=== PATIENT | female | born 1950 | race African-American/Black ===

== ENCOUNTER 2020-04-28 09:43 | Inpatient (IN) | payer OTHER ==
[~2020-04-28] VITALS: Ht 172.7 cm; Wt 99.0 kg
[2020-04-28] MEDS ORDERED: ACETAMINOPHEN 650 MG SUPP.RECT. ONE (10:15)
[2020-04-28] MEDS ORDERED: IV NORMAL SALINE 1000ML BAG 1,000 ML IV ONE ×2 (10:30→19:00)
[2020-04-28] MEDS ORDERED: CEFEPIME HCL IV Push 2 GM VIAL. IVP ONE (10:30)
[2020-04-28 10:58] LABS: CALCIUM 10.4 mg/dL (8.5-10.1); CREATININE 1.8 mg/dL (0.6-1.0); GFR 33.7; POTASSIUM 4.3 mmol/L (3.5-5.1)
[2020-04-28] MEDS ORDERED: ACETAMINOPHEN 650 MG SUPP.RECT. PR ONE (11:00)
[2020-04-28 11:01] LABS: BILIRUBIN,URINE SMALL (NEG); CLARITY,URINE TURBID; COLOR,URINE AMBER; NITRITE,URINE NEGATIVE (NEG); PROTEIN,URINE 100 mg/dL (NEG-TRACE)
[2020-04-28 11:04] LABS: BASO % 0 % (0-3); EOS % 1 % (0-3); HEMATOCRIT 29.3 % (36.0-47.0); LYMPH # 1.2 x10^3/uL (1.0-4.8); LYMPH % 16 % (24-48); MEAN CORPUSCULAR HEMOGLOBIN 30 pg (25-35); MEAN CORPUSCULAR HGB CONC 34 g/dL (31-37); MEAN CORPUSCULAR VOLUME 88 fL (79-100); MONO # 0.5 x10^3/uL (0.0-1.1); MONO % 7 % (0-9); NEUT # 5.8 x10^3/uL (1.8-7.7); NEUT % 77 % (31-73); PLATELET COUNT 302 x10^3/uL (140-400); RED BLOOD COUNT 3.33 x10^6/uL (3.50-5.40); RED CELL DISTRIBUTION WIDTH 13.8 % (11.5-14.5); WHITE BLOOD COUNT 7.6 x10^3/uL (4.0-11.0)
[2020-04-28 11:05] LABS: ALBUMIN 2.9 g/dL (3.4-5.0); ALBUMIN/GLOBULIN RATIO 0.5 (1.0-1.7); MAGNESIUM 1.5 mg/dL (1.8-2.4); TOTAL BILIRUBIN 0.4 mg/dL (0.2-1.0); TOTAL PROTEIN 8.7 g/dL (6.4-8.2)
[2020-04-28 11:06] LABS: BASE EXCESS ABG -7 mmol/L (-3-3); HCO3 ABG 18 mmol/L (21-28); PCO2 ABG 34 mmHg (35-46); PO2 ABG 79 mmHg (65-108); SAT O2 ABG 94 % (92-99)
[2020-04-28 11:14] LABS: BARBITURATES NEG (NEG); BENZODIAZEPINES NEG (NEG); CANNABINOIDS NEG (NEG); COCAINE NEG (NEG); METHADONE NEG (NEG); OPIATES NEG (NEG); PHENCYCLIDINE NEG (NEG)
[2020-04-28 11:17] LABS: AMPHETAMINE/METHAMPHETAMINE NEG (NEG)
[2020-04-28 11:18] LABS: BACTERIA,URINE MODERATE /HPF (0-FEW); RBC,URINE 0 /HPF (0-2); WBC,URINE TNTC /HPF (0-4)
--- NOTE | 2020-04-28 11:50 | RAD ---
EXAM: CHEST ONE VIEW. HISTORY: Hypoxia. COMPARISON: None. FINDINGS: A frontal view of the chest is obtained. The inspiration is small. Mild airspace opacities are suspected in the right perihilar region and left base. There is no pneumothorax or pleural effusion. The heart is not enlarged. The aorta is calcified and tortuous. IMPRESSION: 1. Small inspiration. Correlate with other data to differentiate mild multifocal pneumonic infiltrates from atelectasis. Electronically signed by: Jose Rabago MD (04/28/2020 11:47 AM) [id number]
--- NOTE | 2020-04-28 12:03 | PDOC1 ---
History and Physical Date of Admission Date of Admission DATE: 04/28/20 TIME: 12:02 Identification/Chief Complaint Chief Complaint Altered mental status Source Source: Caregiver, Chart review History of Present Illness History of Present Illness Ms Vu is a 69yo F SNF resident w/ PMHx CVA with contractures, DM2, HLD, Anemia, CAD, Gout who presents to ED via [facility] from SNF for worsening mental status since 04/25/2020. She has been nonverbal since then, per report via EMS she normally is verbal, she was also notably hypoxic down to 84%. She improved on 4L NCO2 and ABG PO2 on 4L NCO2 was 79. She was febrile to 101.1 F as well. She was recently diagnosed with COVID19 and was doing well until 04/25/2020. Labs significant for NA 147, BUN 22, CR 1.8, albumin 2.9, magnesium 1.5, UA positive leukocyte esterase and bacteria. CT head negative for acute intracranial abnormality, CXR concerning for bilateral interstitial infiltrates. EKG: Normal sinus rhythm rate of [address]-T changes Admitted for further treatment. Past Medical History Cardiovascular: HTN, Hyperlipidemia CENTRAL NERVOUS SYSTEM: CVA Rheumatologic: Gout Endocrine: Diabetes Past Surgical History Past Surgical History: No pertinent history (Unknown) Family History Family History: Family History Unknown (Attempted review) Social History Smoke: No ALCOHOL: none Drugs: None Current Medications Current Medications Current Medications Acetaminophen (Tylenol Supp) 650 mg STK-MED ONCE .ROUTE ; Start 04/28/20 at 10:15; Stop 04/28/20 at 10:15; Status DC Sodium Chloride 1,000 ml @ 1,000 mls/hr 1X ONCE IV Last administered on 04/28/20at 10:48; Start 04/28/20 at 10:30; Stop 04/28/20 at 11:29; Status DC Cefepime HCl (Maxipime) 2 gm 1X ONCE IVP Last administered on 04/28/20at 10:47; Start 04/28/20 at 10:30; Stop 04/28/20 at 10:31; Status DC Acetaminophen (Tylenol Supp) 650 mg 1X ONCE W[place] Last administered on 04/28/20at 10:51; Start 04/28/20 at 11:00; Stop 04/28/20 at 11:01; Status DC Allergies Allergies: Coded Allergies: No Known Drug Allergies (Unverified , 04/28/20) ROS Review of System Unable to obtain due to patient not verbally responding Physical Exam General: Alert, Cooperative, mild distress HEENT: Atraumatic, PERRLA, EOMI, Mucous membr. moist/pink Lungs: Other (Bilateral crackles) Heart: S1S2, RRR, no thrills, no rubs Abdomen: Normal bowel sounds, Soft, No tenderness, No hepatosplenomegaly, No masses Rectal Exam: not examined Extremities: No clubbing, No cyanosis, No edema, Normal pulses, No te nderness/swelling Skin: No rashes, No breakdown, No significant lesion Neuro: Cranial nerves 3-12 NL, Reflexes 2+ Psych/Mental Status: Other (Non-verbal) Vitals Vitals Vital Signs Date Time Temp Pulse Resp B/P (MAP) Pulse Ox O2 Delivery O2 Flow Rate FiO2 04/28/20 10:15 101.1 79 20 117/63 (81) 89 Room Air 101.1 Labs Labs Laboratory Tests Test 04/28/20 10:00 04/28/20 10:34 04/28/20 11:00 04/28/20 11:20 White Blood Count 7.6 x10^3/uL (4.0-11.0) Red Blood Count 3.33 x10^6/uL (3.50-5.40) Hemoglobin 10.0 g/dL (12.0-15.5) Hematocrit 29.3 % (36.0-47.0) Mean Corpuscular Volume 88 fL (79-100) Mean Corpuscular Hemoglobin 30 pg (25-35) Mean Corpuscular Hemoglobin Concent 34 g/dL (31-37) Red Cell Distribution Width 13.8 % (11.5-14.5) Platelet Count 302 x10^3/uL (140-400) Neutrophils (%) (Auto) 77 % (31-73) Lymphocytes (%) (Auto) 16 % (24-48) Monocytes (%) (Auto) 7 % (0-9) Eosinophils (%) (Auto) 1 % (0-3) Basophils (%) (Auto) 0 % (0-3) Neutrophils # (Auto) 5.8 x10^3/uL (1.8-7.7) Lymphocytes # (Auto) 1.2 x10^3/uL (1.0-4.8) Monocytes # (Auto) 0.5 x10^3/uL (0.0-1.1) Eosinophils # (Auto) 0.0 x10^3/uL (0.0-0.7) Basophils # (Auto) 0.0 x10^3/uL (0.0-0.2) Sodium Level 147 mmol/L (136-145) Potassium Level 4.3 mmol/L (3.5-5.1) Chloride Level 110 mmol/L (98-107) Carbon Dioxide Level 23 mmol/L (21-32) Anion Gap 14 (6-14) Blood Urea Nitrogen 42 mg/dL (7-20) Creatinine 1.8 mg/dL (0.6-1.0) Estimated GFR (Cockcroft-Gault) 33.7 BUN/Creatinine Ratio 23 (6-20) Glucose Level 162 mg/dL (70-99) Lactic Acid Level 1.2 mmol/L (0.4-2.0) Calcium Level 10.4 mg/dL (8.5-10.1) Magnesium Level 1.5 mg/dL (1.8-2.4) Total Bilirubin 0.4 mg/dL (0.2-1.0) Aspartate Amino Transf (AST/SGOT) 30 U/L (15-37) Alanine Aminotransferase (ALT/SGPT) 25 U/L (14-59) Alkaline Phosphatase 48 U/L (46-116) Creatine Kinase 98 U/L (26-192) Troponin I Quantitative < 0.017 ng/mL (0.000-0.055) Total Protein 8.7 g/dL (6.4-8.2) Albumin 2.9 g/dL (3.4-5.0) Albumin/Globulin Ratio 0.5 (1.0-1.7) Lipase 73 U/L (73-393) Procalcitonin < 0.10 ng/mL (0.00-0.10) Thyroid Stimulating Hormone (TSH) 1.420 uIU/mL (0.358-3.74) Urine Collection Type Unknown Urine Color Madeleine Urine Clarity Turbid Urine pH 6.0 (<5.0-8.0) Urine Specific [place] 1.025 (1.000-1.030) Urine Protein 100 mg/dL (NEG-TRACE) Urine Glucose (UA) Negative mg/dL (NEG) Urine Ketones (Stick) Trace mg/dL (NEG) Urine Blood Negative (NEG) Urine Nitrite Negative (NEG) Urine Bilirubin Small (NEG) Urine Urobilinogen Dipstick 1.0 mg/dL (0.2 mg/dL) Urine Leukocyte Esterase Large (NEG) Urine RBC 0 /HPF (0-2) Urine WBC Tntc /HPF (0-4) Urine Squamous Epithelial Cells None /LPF Urine Bacteria Moderate /HPF (0-FEW) Urine Opiates Screen Neg (NEG) Urine Methadone Screen Neg (NEG) Urine Barbiturates Neg (NEG) Urine Phencyclidine Screen Neg (NEG) Urine Amphetamine/Methamphetamine Neg (NEG) Urine Benzodiazepines Screen Neg (NEG) Urine Cocaine Screen Neg (NEG) Urine Cannabinoids Screen Neg (NEG) Urine Ethyl Alcohol Neg (NEG) O2 Saturation 94 % (92-99) Arterial Blood pH 7.35 (7.35-7.45) Arterial Blood pCO2 at Patient Temp 34 mmHg (35-46) Arterial Blood pO2 at Patient Temp 79 mmHg (65-108) Arterial Blood HCO3 18 mmol/L (21-28) Arterial Blood Base Excess -7 mmol/L (-3-3) FiO2 4 lpm nc Ammonia < 10 mcmol/L (11-34) Laboratory Tests Test 04/28/20 10:00 04/28/20 10:34 04/28/20 11:00 04/28/20 11:20 White Blood Count 7.6 x10^3/uL (4.0-11.0) Red Blood Count 3.33 x10^6/uL (3.50-5.40) Hemoglobin 10.0 g/dL (12.0-15.5) Hematocrit 29.3 % (36.0-47.0) Mean Corpuscular Volume 88 fL (79-100) Mean Corpuscular Hemoglobin 30 pg (25-35) Mean Corpuscular Hemoglobin Concent 34 g/dL (31-37) Red Cell Distribution Width 13.8 % (11.5-14.5) Platelet Count 302 x10^3/uL (140-400) Neutrophils (%) (Auto) 77 % (31-73) Lymphocytes (%) (Auto) 16 % (24-48) Monocytes (%) (Auto) 7 % (0-9) Eosinophils (%) (Auto) 1 % (0-3) Basophils (%) (Auto) 0 % (0-3) Neutrophils # (Auto) 5.8 x10^3/uL (1.8-7.7) Lymphocytes # (Auto) 1.2 x10^3/uL (1.0-4.8) Monocytes # (Auto) 0.5 x10^3/uL (0.0-1.1) Eosinophils # (Auto) 0.0 x10^3/uL (0.0-0.7) Basophils # (Auto) 0.0 x10^3/uL (0.0-0.2) Sodium Level 147 mmol/L (136-145) Potassium Level 4.3 mmol/L (3.5-5.1) Chloride Level 110 mmol/L (98-107) Carbon Dioxide Level 23 mmol/L (21-32) Anion Gap 14 (6-14) Blood Urea Nitrogen 42 mg/dL (7-20) Creatinine 1.8 mg/dL (0.6-1.0) Estimated GFR (Cockcroft-Gault) 33.7 BUN/Creatinine Ratio 23 (6-20) Glucose Level 162 mg/dL (70-99) Lactic Acid Level 1.2 mmol/L (0.4-2.0) Calcium Level 10.4 mg/dL (8.5-10.1) Magnesium Level 1.5 mg/dL (1.8-2.4) Total Bilirubin 0.4 mg/dL (0.2-1.0) Aspartate Amino Transf (AST/SGOT) 30 U/L (15-37) Alanine Aminotransferase (ALT/SGPT) 25 U/L (14-59) Alkaline Phosphatase 48 U/L (46-116) Creatine Kinase 98 U/L (26-192) Troponin I Quantitative < 0.017 ng/mL (0.000-0.055) Total Protein 8.7 g/dL (6.4-8.2) Albumin 2.9 g/dL (3.4-5.0) Albumin/Globulin Ratio 0.5 (1.0-1.7) Lipase 73 U/L (73-393) Procalcitonin < 0.10 ng/mL (0.00-0.10) Thyroid Stimulating Hormone (TSH) 1.420 uIU/mL (0.358-3.74) Urine Collection Type Unknown Urine Color Madeleine Urine Clarity Turbid Urine pH 6.0 (<5.0-8.0) Urine Specific [place] 1.025 (1.000-1.030) Urine Protein 100 mg/dL (NEG-TRACE) Urine Glucose (UA) Negative mg/dL (NEG) Urine Ketones (Stick) Trace mg/dL (NEG) Urine Blood Negative (NEG) Urine Nitrite Negative (NEG) Urine Bilirubin Small (NEG) Urine Urobilinogen Dipstick 1.0 mg/dL (0.2 mg/dL) Urine Leukocyte Esterase Large (NEG) Urine RBC 0 /HPF (0-2) Urine WBC Tntc /HPF (0-4) Urine Squamous Epithelial Cells None /LPF Urine Bacteria Moderate /HPF (0-FEW) Urine Opiates Screen Neg (NEG) Urine Methadone Screen Neg (NEG) Urine Barbiturates Neg (NEG) Urine Phencyclidine Screen Neg (NEG) Urine Amphetamine/Methamphetamine Neg (NEG) Urine Benzodiazepines Screen Neg (NEG) Urine Cocaine Screen Neg (NEG) Urine Cannabinoids Screen Neg (NEG) Urine Ethyl Alcohol Neg (NEG) O2 Saturation 94 % (92-99) Arterial Blood pH 7.35 (7.35-7.45) Arterial Blood pCO2 at Patient Temp 34 mmHg (35-46) Arterial Blood pO2 at Patient Temp 79 mmHg (65-108) Arterial Blood HCO3 18 mmol/L (21-28) Arterial Blood Base Excess -7 mmol/L (-3-3) FiO2 4 lpm nc Ammonia < 10 mcmol/L (11-34) Images Images CXR: The inspiration is small. Mild airspace opacities are suspected in the right perihilar region and left base. There is no pneumothorax or pleural effusion. The heart is not enlarged. The aorta is calcified and tortuous. IMPRESSION: 1. Small inspiration. Correlate with other data to differentiate mild multifocal pneumonic infiltrates from atelectasis. VTE Prophylaxis Ordered VTE Prophylaxis Devices: No VTE Pharmacological Prophylaxi: Yes Assessment/Plan Assessment/Plan A/P: Acute encephalopathy - multifactorial with hypoxia and metabolic derangement as well as UTI. Will treat UTI Acute hypoxia - likely related to COVID 19, will initiated steroids, lovenox, consult Pulm for further recommendations, will consider convalescent FFP and experimental remdesivir if she defervesces JEVON - likely vasomotor nephropathy, will hydrate aggressively, encourage PO Abnormal UA - with confusion will treat with cefepime, f/u culture results Pneumonia - likely COVID 19 related, possibly gram negative as well will treat Protein calorie malnutrition - moderate, will have django developer to see Hypernatremia - likely from poor PO intake, will treat Hypomagnesemia - will treat Sepsis - likely COVID 19 and UTI related, will cont IV fluids and antibiotics H/o CVA with contractures - cont statin, ASA therapy DM2 - sliding scale insulin + basal bolus HLD - cont statin Anemia - likely of chronic disease CAD - stable, will cont meds H/o Gout - no pain complaints currently FEN - ADA diet, NSS 125cc/hr PPX - lovenox DNR/DNI Dispo - inpatient at least 2 midnights. Justicifation of Admission Dx: Justifications for Admission: Justification of Admission Dx: Yes Respiratory Failure: Non-Cardiac Pulm Edema HOWIE CHAPMAN MD Apr 28, 2020 12:03
--- NOTE | 2020-04-28 12:15 | PHYS DOC ---
Past Medical History Past Medical History: Anemia, CAD, CVA, Diabetes-Type II, High Cholesterol Additional Past Medical Histor: CONTRACTURES, GOUT, COVID 19, Past Surgical History: Other Additional Past Surgical Histo: UNKNOWN Smoking Status: Unknown if ever smoked Alcohol Use: None Social History Narrative: UNK SOCIAL HX General Adult EDM: Chief Complaint: ALTERED MENTAL STATUS HPI: HPI: Patient is a 69-year-old female who presents from snf across the street with altered mental status. She has known COVID positive pneumonia. According to the snf staff she was last known to be her baseline last Tuesday. Unsure of what exactly has happened over the weekend. Patient is unable to provide any history at all secondary to altered mental status. [] Review of Systems: Review of Systems: Review of systems is unobtainable secondary to altered mental status Heart Score: Risk Factors: Risk Factors: DM, Current or recent (<one month) smoker, HTN, HLP, family his tory of CAD, obesity. Risk Scores: Score 0 - 3: 2.5% MACE over next 6 weeks - Discharge Home Score 4 - 6: 20.3% MACE over next 6 weeks - Admit for Clinical Observation Score 7 - 10: 72.7% MACE over next 6 weeks - Early Invasive Strategies Current Medications: Current Medications Medications (Trade) Dose Ordered Sig/[facility] Start Time Stop Time Status Last Admin Dose Admin Acetaminophen (Tylenol Supp) 650 mg 1X ONCE 04/28/20 11:00 04/28/20 11:01 DC 04/28/20 10:51 650 MG Cefepime HCl (Maxipime) 2 gm 1X ONCE 04/28/20 10:30 04/28/20 10:31 DC 04/28/20 10:47 2 GM Sodium Chloride 1,000 ml @ 1,000 mls/hr 1X ONCE 04/28/20 10:30 04/28/20 11:29 DC 04/28/20 10:48 1,000 MLS/HR Allergies: Allergies: Allergies Coded Allergies Type Severity Reaction Last Updated Verified No Known Drug Allergies 04/28/20 No Physical Exam: PE: Constitutional: Older than stated age appears acutely ill, smells strongly of urine [] HENT: Normocephalic, atraumatic, bilateral external ears normal, oropharynx moist, no oral exudates, nose normal. [] Eyes: PERRLA, EOMI, conjunctiva normal, no discharge. [] Neck: Normal range of motion, no tenderness, supple, no stridor. [] Cardiovascular:Heart rate regular rhythm, no murmur [] Lungs & Thorax: Bilateral breath sounds clear to auscultation [] Abdomen: Bowel sounds normal, soft, no tenderness, no masses, no pulsatile jesi s. [] Skin: Warm, dry, no erythema, no rash. [] Back: No tenderness, no CVA tenderness. [] Extremities: No tenderness, no cyanosis, no clubbing, ROM intact, no edema. [] Neurologic: GCS 12, normal motor function, normal sensory function, no focal deficits noted. [] Psychologic: Unable to assess secondary to altered mental status. [] Current Patient Data: Labs: Laboratory Tests Test 04/28/20 10:00 04/28/20 10:34 04/28/20 11:00 04/28/20 11:20 White Blood Count 7.6 x10^3/uL (4.0-11.0) Red Blood Count 3.33 x10^6/uL (3.50-5.40) L Hemoglobin 10.0 g/dL (12.0-15.5) L Hematocrit 29.3 % (36.0-47.0) L Mean Corpuscular Volume 88 fL (79-100) Mean Corpuscular Hemoglobin 30 pg (25-35) Mean Corpuscular Hemoglobin Concent 34 g/dL (31-37) Red Cell Distribution Width 13.8 % (11.5-14.5) Platelet Count 302 x10^3/uL (140-400) Neutrophils (%) (Auto) 77 % (31-73) H Lymphocytes (%) (Auto) 16 % (24-48) L Monocytes (%) (Auto) 7 % (0-9) Eosinophils (%) (Auto) 1 % (0-3) Basophils (%) (Auto) 0 % (0-3) Neutrophils # (Auto) 5.8 x10^3/uL (1.8-7.7) Lymphocytes # (Auto) 1.2 x10^3/uL (1.0-4.8) Monocytes # (Auto) 0.5 x10^3/uL (0.0-1.1) Eosinophils # (Auto) 0.0 x10^3/uL (0.0-0.7) Basophils # (Auto) 0.0 x10^3/uL (0.0-0.2) Sodium Level 147 mmol/L (136-145) H Potassium Level 4.3 mmol/L (3.5-5.1) Chloride Level 110 mmol/L (98-107) H Carbon Dioxide Level 23 mmol/L (21-32) Anion Gap 14 (6-14) Blood Urea Nitrogen 42 mg/dL (7-20) H Creatinine 1.8 mg/dL (0.6-1.0) H Estimated GFR (Cockcroft-Gault) 33.7 BUN/Creatinine Ratio 23 (6-20) H Glucose Level 162 mg/dL (70-99) H Lactic Acid Level 1.2 mmol/L (0.4-2.0) Calcium Level 10.4 mg/dL (8.5-10.1) H Magnesium Level 1.5 mg/dL (1.8-2.4) L Total Bilirubin 0.4 mg/dL (0.2-1.0) Aspartate Amino Transferase (AST) 30 U/L (15-37) Alanine Aminotransferase (ALT) 25 U/L (14-59) Alkaline Phosphatase 48 U/L (46-116) Creatine Kinase 98 U/L (26-192) Troponin I Quantitative < 0.017 ng/mL (0.000-0.055) Total Protein 8.7 g/dL (6.4-8.2) H Albumin 2.9 g/dL (3.4-5.0) L Albumin/Globulin Ratio 0.5 (1.0-1.7) L Lipase 73 U/L (73-393) Procalcitonin < 0.10 ng/mL (0.00-0.10) Thyroid Stimulating Hormone (TSH) 1.420 uIU/mL (0.358-3.74) Urine Collection Type Unknown Urine Color Madeleine Urine Clarity Turbid Urine pH 6.0 (<5.0-8.0) Urine Specific [place] 1.025 (1.000-1.030) Urine Protein 100 mg/dL (NEG-TRACE) Urine Glucose (UA) Negative mg/dL (NEG) Urine Ketones (Stick) Trace mg/dL (NEG) Urine Blood Negative (NEG) Urine Nitrite Negative (NEG) Urine Bilirubin Small (NEG) Urine Urobilinogen Dipstick 1.0 mg/dL (0.2 mg/dL) Urine Leukocyte Esterase Large (NEG) Urine RBC 0 /HPF (0-2) Urine WBC Tntc /HPF (0-4) Urine Squamous Epithelial Cells None /LPF Urine Bacteria Moderate /HPF (0-FEW) Urine Opiates Screen Neg (NEG) Urine Methadone Screen Neg (NEG) Urine Barbiturates Neg (NEG) Urine Phencyclidine Screen Neg (NEG) Urine Amphetamine/Methamphetamine Neg (NEG) Urine Benzodiazepines Screen Neg (NEG) Urine Cocaine Screen Neg (NEG) Urine Cannabinoids Screen Neg (NEG) Urine Ethyl Alcohol Neg (NEG) O2 Saturation 94 % (92-99) Arterial Blood pH 7.35 (7.35-7.45) Arterial Blood pCO2 at Patient Temp 34 mmHg (35-46) L Arterial Blood pO2 at Patient Temp 79 mmHg (65-108) Arterial Blood HCO3 18 mmol/L (21-28) L Arterial Blood Base Excess -7 mmol/L (-3-3) L FiO2 4 lpm nc Ammonia < 10 mcmol/L (11-34) L Laboratory Tests 04/28/20 10:00 Laboratory Tests 04/28/20 10:00 Vital Signs: Vital Signs Date Time Temp Pulse Resp B/P (MAP) Pulse Ox O2 Delivery O2 Flow Rate FiO2 04/28/20 10:15 101.1 79 20 117/63 (81) 89 Room Air 101.1 EKG: EKG: EKG: Normal sinus rhythm rate of [address]-T changes [] Radiology/Procedures: Radiology/Procedures: []PROCEDURE: CHEST AP ONLY EXAM: CHEST ONE VIEW. HISTORY: Hypoxia. COMPARISON: None. FINDINGS: A frontal view of the chest is obtained. The inspiration is small. Mild airspace opacities are suspected in the right perihilar region and left base. There is no pneumothorax or pleural effusion. The heart is not enlarged. The aorta is calcified and tortuous. IMPRESSION: 1. Small inspiration. Correlate with other data to differentiate mild multifocal pneumonic infiltrates from atelectasis. Course & Med Decision Making: Course & Med Decision Making Pertinent Labs and Imaging studies reviewed. (See chart for details) [ED course: Evaluation reveals a 69-year-old female who appears older than her stated age. She appears clinically dehydrated her urine appears infected. She was given IV fluids and 2 g of cefepime. I spoke with the hospitalist who agrees to accept the patient for admission. I suspect her altered mental status is related to her urinary tract infection.] Basil Disclaimer: Basil Disclaimer: This electronic medical record was generated, in whole or in part, using a voice recognition dictation system. Departure Departure Impression: Primary Impression: Altered mental status Qualified Codes: R41.82 - Altered mental status, unspecified Additional Impressions: Urinary tract infection Qualified Codes: N39.0 - Urinary tract infection, site not specified COVID-19 virus infection Disposition: ADMITTED INPATIENT Admitting Physician: LESTER Condition: STABLE Referrals: NON,STAFF (PCP) Justicifation of Admission Dx: Justifications for Admission: Justification of Admission Dx: No ADE DANIEL DO Apr 28, 2020 12:15
[2020-04-28 13:10] VITALS: BP 92/52
[2020-04-28 15:23] VITALS: BP 98/59
[2020-04-28] MEDS ORDERED: CLOP75TA PO (17:38)
[2020-04-28] MEDS ORDERED: FURO20TA3 PO (17:38)
[2020-04-28] MEDS ORDERED: ACET650S19 PO (17:38)
[2020-04-28] MEDS ORDERED: CARV25TA2 PO (17:38)
[2020-04-28] MEDS ORDERED: INSU100I13 SQ (17:38)
[2020-04-28] MEDS ORDERED: ATOR10TA60 PO (17:38)
[2020-04-28] MEDS ORDERED: FENT1PAT17 TD (17:38)
[2020-04-28] MEDS ORDERED: DOCU-109 PO (17:38)
[2020-04-28] MEDS ORDERED: HYDR-2869 PO (17:38)
[2020-04-28] MEDS ORDERED: INSU100V6 SQ (17:43)
[2020-04-28] MEDS ORDERED: LOPE2TAB27 PO (17:43)
[2020-04-28] MEDS ORDERED: NYST15PO9 TP (17:43)
[2020-04-28] MEDS ORDERED: TRAM100C3 PO (17:43)
[2020-04-28] MEDS ORDERED: LOSA100T14 PO (17:43)
[2020-04-28] MEDS ORDERED: ACETAMINOPHEN 650 MG/20.3 ML SOLUTION. PO PRN (17:45)
[2020-04-28] MEDS ORDERED: DEXTROSE 50% 25 GM / 50ML DISP.SYRIN. IV PRN (18:00)
[2020-04-28] MEDS ORDERED: traMADol 50 MG TABLET PO PRN (18:15)
[2020-04-28] MEDS ORDERED: LOPERAMIDE 2 MG CAPSULE PO PRN (18:15)
[2020-04-28] MEDS: methylPREDNISolone SOD SUCC PF 40 MG/ML VIAL. IV SCH ×2 (18:21→23:11)
[2020-04-28] MEDS: ENOXAPARIN 40 MG/0.4 ML SYRINGE. SQ SCH (18:21)
[2020-04-28] MEDS: fentaNYL 50MCG/HR PATCH 1 PATCH PATCH.TD72 TD SCH (19:00)
[2020-04-28 19:54] VITALS: BP 121/62
[2020-04-28] MEDS ORDERED: MAGNESIUM SULFATE 2GM 50 ML IV ONE (21:00)
[2020-04-28] MEDS: DOCUSATE SODIUM 100 MG CAPSULE. PO SCH (23:10)
[2020-04-28] MEDS: ATORVASTATIN CALCIUM 10 MG TABLET. PO SCH (23:10)
[2020-04-28] MEDS: NYSTATIN TOPICAL POWDER 15GM BOTTLE. TP SCH (23:12)
[2020-04-28] MEDS: INSULIN GLARGINE SYRINGE. SQ SCH (23:13)
[2020-04-28 23:51] VITALS: BP 126/70
[2020-04-29 03:47] VITALS: BP 120/64
[2020-04-29 04:08] LABS: BASO % 0 % (0-3); EOS % 0 % (0-3); HEMATOCRIT 27.9 % (36.0-47.0); HEMOGLOBIN 9.4 g/dL (12.0-15.5); LYMPH # 0.5 x10^3/uL (1.0-4.8); LYMPH % 7 % (24-48); MEAN CORPUSCULAR HEMOGLOBIN 30 pg (25-35); MEAN CORPUSCULAR HGB CONC 34 g/dL (31-37); MEAN CORPUSCULAR VOLUME 90 fL (79-100); MONO # 0.1 x10^3/uL (0.0-1.1); MONO % 2 % (0-9); NEUT % 91 % (31-73); PLATELET COUNT 281 x10^3/uL (140-400); RED BLOOD COUNT 3.09 x10^6/uL (3.50-5.40); RED CELL DISTRIBUTION WIDTH 14.1 % (11.5-14.5); WHITE BLOOD COUNT 6.5 x10^3/uL (4.0-11.0)
[2020-04-29 04:31] LABS: ALBUMIN 2.5 g/dL (3.4-5.0); CALCIUM 9.6 mg/dL (8.5-10.1); CREATININE 1.8 mg/dL (0.6-1.0); GFR 33.7; PHOSPHORUS 3.5 mg/dL (2.6-4.7); POTASSIUM 4.7 mmol/L (3.5-5.1)
[2020-04-29 05:59] LABS: % BANDS 3 % (0-9); % LYMPHS 4 % (24-48); % MONOS 1 % (0-10); % SEGS 92 % (35-66); ANISOCYTOSIS SLIGHT; PLT ESTIMATE ADEQUATE (ADEQUATE)
[2020-04-29] MEDS: methylPREDNISolone SOD SUCC PF 40 MG/ML VIAL. IV SCH ×3 (06:58→21:31)
[2020-04-29 07:11] VITALS: BP 108/56
[2020-04-29] MEDS: CARVEDILOL 12.5 MG TABLET. PO SCH ×2 (08:00→17:43)
--- NOTE | 2020-04-29 08:12 | EKG ---
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
[2020-04-29] MEDS: LOSARTAN POTASSIUM 50 MG TABLET. PO SCH (09:00)
[2020-04-29] MEDS: NYSTATIN TOPICAL POWDER 15GM BOTTLE. TP SCH ×2 (09:00→21:30)
[2020-04-29] MEDS: CEFEPIME HCL IV Push 2 GM VIAL. IVP SCH (09:27)
[2020-04-29] MEDS: DOCUSATE SODIUM 100 MG CAPSULE. PO SCH ×2 (09:28→21:30)
[2020-04-29] MEDS: FUROSEMIDE 20 MG TABLET PO SCH (09:29)
[2020-04-29] MEDS: CLOPIDOGREL BISULFATE 75 MG TABLET PO SCH (09:30)
[2020-04-29] MEDS: ENOXAPARIN 40 MG/0.4 ML SYRINGE. SQ SCH (09:39)
[2020-04-29] MEDS: INSULIN LISPRO 300 UNITS/3 ML VIAL. SQ SCH ×3 (09:43→17:44)
[2020-04-29 11:15] VITALS: BP 134/73
--- NOTE | 2020-04-29 12:22 | CONS ---
DATE OF CONSULTATION: PULMONARY CONSULTATION ATTENDING PHYSICIAN: Pedro Prater MD REASON FOR CONSULTATION: Pneumonia, COVID-19 and hypoxia. HISTORY OF PRESENT ILLNESS: The patient is a 69-year-old obese patient with history of CVA with contractures and multiple other comorbid conditions. She came to the hospital from skilled care with worsening mental status on 04/25/2020. She has an improvement in mental status. She answers questions. She states she has no significant tobacco history. She was febrile, 101 temperature recorded and was being recently diagnosed with COVID-19. Since in the hospital, no temperature has been recorded. Saturation 97% initially on 3.5 liters, now down to 2 liters. She does not appear to be in any obvious respiratory distress. She has minimal cough. No nausea, vomiting, or diarrhea. PAST MEDICAL HISTORY: History of hypertension, hyperlipidemia, CVA, gout and diabetes. PAST SURGICAL HISTORY: No recent surgery. FAMILY HISTORY: Unknown. SOCIAL HISTORY: She has tobacco history, probably 25-30 years. ALLERGIES: None. MEDICATIONS: Reviewed as listed in the MRAD including antibiotics and steroids. PHYSICAL EXAMINATION: GENERAL: She is in no obvious respiratory distress. VITAL SIGNS: Reviewed, pulse ox 97% on 2 liters now. HEENT: Sclerae nonicteric. NECK: Supple. LUNGS: With diminished breath sounds. CARDIOVASCULAR: With a regular rate. ABDOMEN: Soft, obese. EXTREMITIES: With trace pitting edema. LABORATORY DATA: Reviewed. White cell count 6.5, hemoglobin 9.4 and platelets are 281. BUN 40 and creatinine 1.8. ABGs with a pH of 7.35, pCO2 of 34 and pO2 of 79 on 4 liters. IMPRESSION: 1. Acute hypoxic respiratory failure secondary to COVID-19 pneumonia. 2. Abnormal chest x-ray with faint interstitial infiltrates suggestive of COVID-19 pneumonia. She was recently positive with COVID-19. 3. Underlying obesity. 4. Multiple comorbidities including history of CVA with contractures. 5. Chronic kidney disease. RECOMMENDATIONS: 1. The patient is clinically improving. Her oxygen requirements are down to 2 liters. 2. Continue empiric antibiotic. 3. Continue with steroids with gradual taper. 4. If she remains afebrile, she could be discharged back to skilled care on minimal oxygen of 2 liters. 5. DVT prophylaxis with Lovenox. 6. Discussed with Dr. Prater. YUE HIGGINS MD DR: Evangelista JOB#: [id number] / [id number]
--- NOTE | 2020-04-29 13:55 | PDOC ---
[employer] PROGRESS NOTE Date of Service DOS: DATE: 04/29/20 TIME: 13:35 Chief Complaint Chief Complaint A/P: Acute encephalopathy - multifactorial with hypoxia and metabolic derangement as well as UTI. Will treat UTI Acute hypoxia - likely related to COVID 19, will initiated steroids, lovenox, consult Pulm for further recommendations, will consider convalescent FFP and experimental remdesivir if she defervesces JEVON - likely vasomotor nephropathy, will hydrate aggressively, encourage PO UTI - with confusion will treat with cefepime, f/u culture results. >100K e. 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 History of Present Illness History of Present Illness Ms Vu is a 69yo F SNF resident w/ PMHx CVA with contractures, DM2, HLD, Anemia, CAD, Gout who presents to ED via [facility] from [facility] for worsening mental status since 04/25/2020. She has been nonverbal since then, per report via EMS she normally is verbal, she was also notably hypoxic down to 84%. She improved on 4L NCO2 and ABG PO2 on 4L NCO2 was 79. She was febrile to 101.1 F as well. She was recently diagnosed with COVID19 and was doing well until 04/25/2020. Labs significant for NA 147, BUN 22, CR 1.8, albumin 2.9, magnesium 1.5, UA positive leukocyte esterase and bacteria. CT head negative for acute intracranial abnormality, CXR concerning for bilateral interstitial infiltrates. EKG: Normal sinus rhythm rate of [address]-T changes Admitted for further treatment. Urine with greater than 100,000 CFU of E. coli. She is less confused today. Afebrile. 1 2 blood culture positive for GPC. Vitals/I&O Vitals/I&O: Vital Signs Date Time Temp Pulse Resp B/P (MAP) Pulse Ox O2 Delivery O2 Flow Rate FiO2 04/29/20 11:15 98.1 80 21 134/73 (93) 95 Nasal Cannula 2.0 98.1 I & O 04/28/20 04/28/20 04/29/20 15:00 23:00 07:00 Intake Total 1000 ml 100 ml 100 ml Output Total 100 ml Balance 1000 ml 100 ml 0 ml Physical Exam General: Alert, Cooperative, mild distress Abdomen: Normal bowel sounds, Soft, No tenderness, No hepatosplenomegaly, No masses Extremities: No clubbing, No cyanosis, No edema, Normal pulses, No tenderness /swelling Skin: No rashes, No breakdown, No significant lesion Labs Labs: Laboratory Tests Test 04/28/20 13:50 04/28/20 16:31 04/28/20 20:40 04/29/20 03:30 Glucose (Fingerstick) 190 mg/dL (70-99) 162 mg/dL (70-99) 186 mg/dL (70-99) White Blood Count 6.5 x10^3/uL (4.0-11.0) Red Blood Count 3.09 x10^6/uL (3.50-5.40) Hemoglobin 9.4 g/dL (12.0-15.5) Hematocrit 27.9 % (36.0-47.0) Mean Corpuscular Volume 90 fL (79-100) Mean Corpuscular Hemoglobin 30 pg (25-35) Mean Corpuscular Hemoglobin Concent 34 g/dL (31-37) Red Cell Distribution Width 14.1 % (11.5-14.5) Platelet Count 281 x10^3/uL (140-400) Neutrophils (%) (Auto) 91 % (31-73) Lymphocytes (%) (Auto) 7 % (24-48) Monocytes (%) (Auto) 2 % (0-9) Eosinophils (%) (Auto) 0 % (0-3) Basophils (%) (Auto) 0 % (0-3) Neutrophils # (Auto) 6.0 x10^3/uL (1.8-7.7) Lymphocytes # (Auto) 0.5 x10^3/uL (1.0-4.8) Monocytes # (Auto) 0.1 x10^3/uL (0.0-1.1) Eosinophils # (Auto) 0.0 x10^3/uL (0.0-0.7) Basophils # (Auto) 0.0 x10^3/uL (0.0-0.2) Segmented Neutrophils % 92 % (35-66) Band Neutrophils % 3 % (0-9) Lymphocytes % 4 % (24-48) Monocytes % 1 % (0-10) Platelet Estimate Adequate (ADEQUATE) Anisocytosis Slight Sodium Level 147 mmol/L (136-145) Potassium Level 4.7 mmol/L (3.5-5.1) Chloride Level 110 mmol/L (98-107) Carbon Dioxide Level 18 mmol/L (21-32) Anion Gap 19 (6-14) Blood Urea Nitrogen 48 mg/dL (7-20) Creatinine 1.8 mg/dL (0.6-1.0) Estimated GFR (Cockcroft-Gault) 33.7 Glucose Level 307 mg/dL (70-99) Calcium Level 9.6 mg/dL (8.5-10.1) Phosphorus Level 3.5 mg/dL (2.6-4.7) Albumin 2.5 g/dL (3.4-5.0) Test 04/29/20 07:25 04/29/20 11:06 Glucose (Fingerstick) 242 mg/dL (70-99) 244 mg/dL (70-99) Assessment and Plan Assessmemt and Plan Problems Medical Problems: (1) Altered mental status Status: Acute (2) COVID-19 virus infection Status: Acute (3) Urinary tract infection Status: Acute Comment Review of Relevant I have reviewed the following items daniel (where applicable) has been applied. Medications: Current Medications Medications (Trade) Dose Ordered Sig/Rossana Route PRN Reason Start Time Stop Time Status Last Admin Dose Admin Methylprednisolone Sodium Succinate (SOLU-Medrol 40MG VIAL) 40 mg Q8HRS IV 04/28/20 14:00 04/29/20 06:58 Atorvastatin Calcium (Lipitor) 10 mg HS PO 04/28/20 21:00 04/28/20 23:10 Clopidogrel Bisulfate (Plavix) 75 mg DAILY PO 04/29/20 09:00 04/29/20 09:30 Docusate Sodium (Colace) 100 mg BID PO 04/28/20 21:00 04/29/20 09:28 Fentanyl (Duragesic 50mcg/ Hr Patch) 1 patch Q72H TD 04/28/20 17:45 04/28/20 19:00 Furosemide (Lasix) 20 mg DAILY PO 04/29/20 09:00 04/29/20 09:29 Hydralazine HCl (Apresoline) 50 mg BID PO 04/28/20 21:00 04/28/20 23:10 Nystatin (Nystop) 15 eros BID TP 04/28/20 21:00 04/29/20 09:00 Insulin Glargine (Lantus Syringe) 25 unit QHS SQ 04/28/20 21:00 04/28/20 23:13 Insulin Human Lispro (HumaLOG) 0-5 UNITS TIDWMEALS SQ 04/29/20 08:00 04/29/20 09:43 Sodium Chloride 1,000 ml @ 150 mls/hr 1X ONCE IV 04/28/20 19:00 04/29/20 01:39 DC 04/28/20 19:38 Magnesium Sulfate 50 ml @ 25 mls/hr 1X ONCE IV 04/28/20 21:00 04/28/20 22:59 DC 04/28/20 23:10 Cefepime HCl (Maxipime) 2 gm Q24H IVP 04/29/20 09:30 04/29/20 09:27 Justicifation of Admission Dx: Justifications for Admission: Justification of Admission Dx: Yes Respiratory Failure: Non-Cardiac Pulm Edema HOWIE CHPAMAN MD Apr 29, 2020 13:55
[2020-04-29 15:14] VITALS: BP 139/69
--- NOTE | 2020-04-29 16:18 | NUR ---
SW following. Reviewed chart and spoke with RN. Pt from LTC at [facility], , (fax). Pt on 2l 02. Pt COVID positive. Pt consulted by pulmonary. SW to follow.
[2020-04-29 19:00] VITALS: BP 140/72
[2020-04-29] MEDS: ATORVASTATIN CALCIUM 10 MG TABLET. PO SCH (21:30)
[2020-04-29] MEDS: LACTOBACILLUS RHAMNOSUS GG 1 CAPSULE. PO SCH (21:30)
[2020-04-29] MEDS: INSULIN GLARGINE SYRINGE. SQ SCH (21:32)
[2020-04-29 23:10] VITALS: BP 162/77
[2020-04-30 03:00] VITALS: BP 152/75
[2020-04-30] MEDS: methylPREDNISolone SOD SUCC PF 40 MG/ML VIAL. IV SCH ×3 (06:13→20:45)
[2020-04-30 07:00] VITALS: BP 171/82
[2020-04-30] MEDS: CARVEDILOL 12.5 MG TABLET. PO SCH ×2 (08:00→17:08)
[2020-04-30] MEDS: CLOPIDOGREL BISULFATE 75 MG TABLET PO SCH (08:43)
[2020-04-30] MEDS: LACTOBACILLUS RHAMNOSUS GG 1 CAPSULE. PO SCH ×2 (08:43→20:41)
[2020-04-30] MEDS: LOSARTAN POTASSIUM 50 MG TABLET. PO SCH (08:43)
[2020-04-30] MEDS: DOCUSATE SODIUM 100 MG CAPSULE. PO SCH ×2 (08:43→20:42)
[2020-04-30] MEDS: FUROSEMIDE 20 MG TABLET PO SCH (08:43)
[2020-04-30] MEDS: CEFEPIME HCL IV Push 2 GM VIAL. IVP SCH (08:44)
[2020-04-30] MEDS: ENOXAPARIN 40 MG/0.4 ML SYRINGE. SQ SCH (08:44)
[2020-04-30] MEDS: INSULIN LISPRO 300 UNITS/3 ML VIAL. SQ SCH ×3 (08:49→17:13)
[2020-04-30] MEDS: NYSTATIN TOPICAL POWDER 15GM BOTTLE. TP SCH ×2 (09:00→20:46)
--- NOTE | 2020-04-30 10:18 | PDOC ---
[employer] PROGRESS NOTE Date of Service DOS: DATE: 04/30/20 TIME: 10:18 Chief Complaint Chief Complaint A/P: Acute encephalopathy - multifactorial with hypoxia and metabolic derangement as well as UTI. Will treat UTI Acute hypoxia - likely related to COVID 19, will initiated steroids, lovenox, consult Pulm for further recommendations, will consider convalescent FFP and experimental remdesivir if she defervesces JEVON - likely vasomotor nephropathy, will hydrate aggressively, encourage PO UTI - with confusion will treat with cefepime, f/u culture results. >100K e. coli Blood culture positive - gram positive cocci in multiple bottles, will need continued IV treatment. Pneumonia - likely COVID 19 related, possibly gram negative as well will treat Protein calorie malnutrition - moderate, will have marriage counselor to see Hypernatremia - likely from poor PO intake, will treat Hypomagnesemia - will treat Sepsis - likely COVID 19 and UTI related, will cont IV fluids and antibiotics H/o CVA with contractures - cont statin, ASA therapy DM2 - sliding scale insulin + basal bolus HLD - cont statin Anemia - likely of chronic disease CAD - stable, will cont meds H/o Gout - no pain complaints currently FEN - ADA diet, NSS 125cc/hr PPX - lovenox DNR/DNI Dispo - inpatient at least 2 midnights. History of Present Illness History of Present Illness Ms Vu is a 69yo F SNF resident w/ PMHx CVA with contractures, DM2, HLD, An emia, CAD, Gout who presents to ED via [facility] from [facility] for worsening mental status since 04/25/2020. She has been nonverbal since then, per report via EMS she normally is verbal, she was also notably hypoxic down to 84%. She improved on 4L NCO2 and ABG PO2 on 4L NCO2 was 79. She was febrile to 101.1 F as well. She was recently diagnosed with COVID19 and was doing well until 04/25/2020. Labs significant for NA 147, BUN 22, CR 1.8, albumin 2.9, magnesium 1.5, UA positive leukocyte esterase and bacteria. CT head negative for acute intracranial abnormality, CXR concerning for bilateral interstitial infiltrates. EKG: Normal sinus rhythm rate of [address]-T changes Admitted for further treatment. 04/29: Urine with greater than 100,000 CFU of E. coli. She is less confused today. Afebrile. 1 2 blood culture positive for GPC. Urine with E. coli sensitive to penicillins and cephalosporins, resistant to ciprofloxacin. Blood cultures x2+ for GPC no sensitivities back. She is on less oxygen feels like she is near her baseline now. Vitals/I&O Vitals/I&O: Vital Signs Date Time Temp Pulse Resp B/P (MAP) Pulse Ox O2 Delivery O2 Flow Rate FiO2 04/30/20 08:43 48 171/82 04/30/20 07:00 98.8 18 98 Nasal Cannula 2.0 98.8 I & O 04/29/20 04/29/20 04/30/20 15:00 23:00 07:00 Intake Total 0 ml Output Total 250 ml 400 ml Balance -250 ml -400 ml 0 ml Physical Exam General: Alert, Cooperative, mild distress Abdomen: Normal bowel sounds, Soft, No tenderness, No hepatosplenomegaly, No masses Extremities: No clubbing, No cyanosis, No edema, Normal pulses, No tenderness/swelling Skin: No rashes, No breakdown, No significant lesion Labs Labs: Laboratory Tests Test 04/29/20 11:06 04/29/20 15:59 04/29/20 20:32 04/30/20 07:37 Glucose (Fingerstick) 244 mg/dL (70-99) 270 mg/dL (70-99) 223 mg/dL (70-99) 280 mg/dL (70-99) Assessment and Plan Assessmemt and Plan Problems Medical Problems: (1) Altered mental status Status: Acute (2) COVID-19 virus infection Status: Acute (3) Urinary tract infection Status: Acute Comment Review of Relevant I have reviewed the following items daniel (where applicable) has been applied. Medications: Current Medications Medications (Trade) Dose Ordered Sig/Rossana Route PRN Reason Start Time Stop Time Status Last Admin Dose Admin Lactobacillus Rhamnosus (Culturelle) 1 cap BID PO 04/29/20 21:00 04/30/20 08:43 Justicifation of Admission Dx: Justifications for Admission: Justification of Admission Dx: Yes Respiratory Failure: Non-Cardiac Pulm Edema HOWIE CHAPMAN MD Apr 30, 2020 10:18
--- NOTE | 2020-04-30 10:56 | PDOC ---
PULMONARY PROGRESS NOTES DATE: 04/30/20 TIME: 10:54 Subjective no soa Vitals Vital Signs Date Time Temp Pulse Resp B/P (MAP) Pulse Ox O2 Delivery O2 Flow Rate FiO2 04/30/20 08:43 48 171/82 04/30/20 07:00 98.8 18 98 Nasal Cannula 2.0 98.8 Comments visual exam done no soa no skin rash General: Alert, No acute distress Labs Laboratory Tests Test 04/28/20 11:00 04/28/20 11:20 04/28/20 13:50 04/28/20 16:31 O2 Saturation 94 % (92-99) Arterial Blood pH 7.35 (7.35-7.45) Arterial Blood pCO2 at Patient Temp 34 mmHg (35-46) Arterial Blood pO2 at Patient Temp 79 mmHg (65-108) Arterial Blood HCO3 18 mmol/L (21-28) Arterial Blood Base Excess -7 mmol/L (-3-3) FiO2 4 lpm nc Ammonia < 10 mcmol/L (11-34) Glucose (Fingerstick) 190 mg/dL (70-99) 162 mg/dL (70-99) Test 04/28/20 20:40 04/29/20 03:30 04/29/20 07:25 04/29/20 11:06 Glucose (Fingerstick) 186 mg/dL (70-99) 242 mg/dL (70-99) 244 mg/dL (70-99) White Blood Count 6.5 x10^3/uL (4.0-11.0) Red Blood Count 3.09 x10^6/uL (3.50-5.40) Hemoglobin 9.4 g/dL (12.0-15.5) Hematocrit 27.9 % (36.0-47.0) Mean Corpuscular Volume 90 fL (79-100) Mean Corpuscular Hemoglobin 30 pg (25-35) Mean Corpuscular Hemoglobin Concent 34 g/dL (31-37) Red Cell Distribution Width 14.1 % (11.5-14.5) Platelet Count 281 x10^3/uL (140-400) Neutrophils (%) (Auto) 91 % (31-73) Lymphocytes (%) (Auto) 7 % (24-48) Monocytes (%) (Auto) 2 % (0-9) Eosinophils (%) (Auto) 0 % (0-3) Basophils (%) (Auto) 0 % (0-3) Neutrophils # (Auto) 6.0 x10^3/uL (1.8-7.7) Lymphocytes # (Auto) 0.5 x10^3/uL (1.0-4.8) Monocytes # (Auto) 0.1 x10^3/uL (0.0-1.1) Eosinophils # (Auto) 0.0 x10^3/uL (0.0-0.7) Basophils # (Auto) 0.0 x10^3/uL (0.0-0.2) Segmented Neutrophils % 92 % (35-66) Band Neutrophils % 3 % (0-9) Lymphocytes % 4 % (24-48) Monocytes % 1 % (0-10) Platelet Estimate Adequate (ADEQUATE) Anisocytosis Slight Sodium Level 147 mmol/L (136-145) Potassium Level 4.7 mmol/L (3.5-5.1) Chloride Level 110 mmol/L (98-107) Carbon Dioxide Level 18 mmol/L (21-32) Anion Gap 19 (6-14) Blood Urea Nitrogen 48 mg/dL (7-20) Creatinine 1.8 mg/dL (0.6-1.0) Estimated GFR (Cockcroft-Gault) 33.7 Glucose Level 307 mg/dL (70-99) Calcium Level 9.6 mg/dL (8.5-10.1) Phosphorus Level 3.5 mg/dL (2.6-4.7) Albumin 2.5 g/dL (3.4-5.0) Test 04/29/20 15:59 04/29/20 20:32 04/30/20 07:37 Glucose (Fingerstick) 270 mg/dL (70-99) 223 mg/dL (70-99) 280 mg/dL (70-99) Laboratory Tests Test 04/29/20 11:06 04/29/20 15:59 04/29/20 20:32 04/30/20 07:37 Glucose (Fingerstick) 244 mg/dL (70-99) 270 mg/dL (70-99) 223 mg/dL (70-99) 280 mg/dL (70-99) Medications Active Scripts Medications Dose Route/Sig Max Daily Dose Days Date Category Tramadol HCl ER (Tramadol HCl) 100 Mg Cpbp.25.75 50 Mg PO PRN Q6HRS PRN 04/28/20 Reported Nystatin 15 Gm Powder 15 Gm TP BID 04/28/20 Reported Humalog (Insulin Lispro) 100 Unit/1 Ml Vial 100 Unit SQ TIDBFRMEAL 04/28/20 Reported Losartan Potassium 100 Mg Tablet 100 Mg PO DAILY 04/28/20 Reported Loperamide (Loperamide Hcl) 2 Mg Tablet 2 Mg PO PRN Q4-6HRS 04/28/20 Reported Furosemide 20 Mg Tablet 1 Tab PO DAILY 04/28/20 Reported Lantus Solostar (Insulin Glargine,Hum.rec.anlog) 100 Unit/1 Ml Insuln.pen 25 Unit SQ QHS 04/28/20 Reported Hydralazine Hcl 50 Mg Tablet 1 Tab PO BID 04/28/20 Reported FENTANYL 50mcg/hr (Fentanyl) 1 Each Patch.td72 1 Patch TD Q72H 04/28/20 Reported Carvedilol 25 Mg Tablet 25 Mg PO BIDWMEALS 04/28/20 Reported Colace (Docusate Sodium) 100 Mg Capsule 1 Cap PO BID 30 04/28/20 Reported Clopidogrel (Clopidogrel Bisulfate) 75 Mg Tablet 1 Tab PO DAILY 04/28/20 Reported Atorvastatin Calcium 10 Mg Tablet 10 Mg PO HS 04/28/20 Reported Acetaminophen 650 Mg/20.3 Ml Solution 650 Mg PO PRN PRN 04/28/20 Reported Impression . 1. Acute hypoxic respiratory failure secondary to COVID-19 pneumonia. 2. Abnormal chest x-ray with faint interstitial infiltrates suggestive of COVID-19 pneumonia. She was recently positive with COVID-19. 3. Underlying obesity. 4. Multiple comorbidities including history of CVA with contractures. 5. Chronic kidney disease. Plan . RECOMMENDATIONS: 1. The patient is clinically improving. Her oxygen requirements are down to 2 liters. 2. Continue empiric antibiotic. 3. Continue with steroids with gradual taper. 4. If she remains afebrile, she could be discharged back to skilled care on minimal oxygen of 2 liters. 5. DVT prophylaxis with Lovenox. 6. Discussed with YUE BOJORQUEZ MD Apr 30, 2020 10:56
[2020-04-30 11:14] VITALS: BP 148/72
[2020-04-30] MEDS ORDERED: INSULIN LISPRO 300 UNITS/3 ML VIAL. SQ ONE (12:45)
[2020-04-30 15:49] VITALS: BP 136/69
--- NOTE | 2020-04-30 17:07 | NUR ---
SW following. Reviewed chart and spoke with RN. Pt from LTC at [facility] and will return when stable. Updated facility RN Ignacia today. Pt remains on 2l 02 and IV abx and is not ready for discharge today. SW to continue following.
[2020-04-30 19:00] VITALS: BP 158/79
[2020-04-30] MEDS: ATORVASTATIN CALCIUM 10 MG TABLET. PO SCH (20:42)
[2020-04-30] MEDS: INSULIN GLARGINE SYRINGE. SQ SCH (20:46)
[2020-04-30 23:00] VITALS: BP 189/97
[2020-05-01 03:00] VITALS: BP 189/82
[2020-05-01] MEDS: methylPREDNISolone SOD SUCC PF 40 MG/ML VIAL. IV SCH (05:52)
[2020-05-01 07:00] VITALS: BP 183/72
[2020-05-01] MEDS: INSULIN LISPRO 300 UNITS/3 ML VIAL. SQ SCH ×3 (08:00→16:49)
[2020-05-01] MEDS ORDERED: INSULIN LISPRO 300 UNITS/3 ML VIAL. SQ ONE ×2 (08:15→12:45)
[2020-05-01] MEDS: DOCUSATE SODIUM 100 MG CAPSULE. PO SCH (08:27)
[2020-05-01] MEDS: LACTOBACILLUS RHAMNOSUS GG 1 CAPSULE. PO SCH (08:27)
[2020-05-01] MEDS: CARVEDILOL 12.5 MG TABLET. PO SCH ×2 (08:27→16:48)
[2020-05-01] MEDS: CLOPIDOGREL BISULFATE 75 MG TABLET PO SCH (08:28)
[2020-05-01] MEDS: FUROSEMIDE 20 MG TABLET PO SCH (08:28)
[2020-05-01] MEDS: LOSARTAN POTASSIUM 50 MG TABLET. PO SCH (08:29)
[2020-05-01] MEDS: ENOXAPARIN 40 MG/0.4 ML SYRINGE. SQ SCH (08:29)
[2020-05-01] MEDS: CEFEPIME HCL IV Push 2 GM VIAL. IVP SCH (08:30)
[2020-05-01] MEDS: NYSTATIN TOPICAL POWDER 15GM BOTTLE. TP SCH (09:00)
--- NOTE | 2020-05-01 10:12 | NUR ---
OLIVIA following. Reviewed chart and spoke with RN. Coordinated care with Dr. Prater. Pt from [facility] at [facility], , (fax) and will return when stable. OLIVIA faxed clinicals to update. Pt remains on 2l 02 and IV abx. Cultures are pending. Pt COVID positive. Pt not ready for discharge. OLIVIA to continue following. Addendum: 05/01/20 at 1347 by ISAIAS BAKER Pt clear for discharge today back to [facility] per Dr. Prater. Pt on 2l 02 and oral abx. Pt to have Lovenox injections weekly. Pt COVID positive. Discharge orders and scripts phoned and faxed to facility [facility]. RN to call report. OLIVIA awaiting on transport time from [facility]. Clinicals in packet and ready to be sent with pt. Addendum: 05/01/20 at 1353 by ISAIAS BAKER Discharge time is 1430 with 02 Addendum: 05/01/20 at 1529 by ISAIAS BAKER [facility] transport arrived and refused to take pt per COVID positive status. OLIVIA spoke with Luis from [facility] and requested stretcher transport with 02 for a COVID positive patient. Transport now coming at 1630 per Luis. Daughter Janice ([phone]) requesting call from Dr. Prater. Dr. Prater notified. No further OLIVIA needs.
[2020-05-01 11:00] VITALS: BP 170/81
--- NOTE | 2020-05-01 11:27 | PDOC ---
PULMONARY PROGRESS NOTES DATE: 05/01/20 TIME: 11:25 Subjective NO increased SOA, No increased cough Remains on 2 liters N/C A-febrile overnight no overnight concerns from nursing Vitals Vital Signs Date Time Temp Pulse Resp B/P (MAP) Pulse Ox O2 Delivery O2 Flow Rate FiO2 05/01/20 11:00 97.8 75 18 170/81 (110) 100 Nasal Cannula 2.0 97.8 Comments visual exam done RRR no soa no skin rash no edema General: Alert, No acute distress Labs Laboratory Tests Test 04/29/20 15:59 04/29/20 20:32 04/30/20 07:37 04/30/20 11:56 Glucose (Fingerstick) 270 mg/dL (70-99) 223 mg/dL (70-99) 280 mg/dL (70-99) 351 mg/dL (70-99) Test 04/30/20 16:52 04/30/20 20:42 05/01/20 07:14 Glucose (Fingerstick) 326 mg/dL (70-99) 330 mg/dL (70-99) 362 mg/dL (70-99) Laboratory Tests Test 04/30/20 11:56 04/30/20 16:52 04/30/20 20:42 05/01/20 07:14 Glucose (Fingerstick) 351 mg/dL (70-99) 326 mg/dL (70-99) 330 mg/dL (70-99) 362 mg/dL (70-99) Medications Active Scripts Medications Dose Route/Sig Max Daily Dose Days Date Category Tramadol HCl ER (Tramadol HCl) 100 Mg Cpbp.25.75 50 Mg PO PRN Q6HRS PRN 04/28/20 Reported Nystatin 15 Gm Powder 15 Gm TP BID 04/28/20 Reported Humalog (Insulin Lispro) 100 Unit/1 Ml Vial 100 Unit SQ TIDBFRMEAL 04/28/20 Reported Losartan Potassium 100 Mg Tablet 100 Mg PO DAILY 04/28/20 Reported Loperamide (Loperamide Hcl) 2 Mg Tablet 2 Mg PO PRN Q4-6HRS 04/28/20 Reported Furosemide 20 Mg Tablet 1 Tab PO DAILY 04/28/20 Reported Lantus Solostar (Insulin Glargine,Hum.rec.anlog) 100 Unit/1 Ml Insuln.pen 25 Unit SQ QHS 04/28/20 Reported Hydralazine Hcl 50 Mg Tablet 1 Tab PO BID 04/28/20 Reported FENTANYL 50mcg/hr (Fentanyl) 1 Each Patch.td72 1 Patch TD Q72H 04/28/20 Reported Carvedilol 25 Mg Tablet 25 Mg PO BIDWMEALS 04/28/20 Reported Colace (Docusate Sodium) 100 Mg Capsule 1 Cap PO BID 30 04/28/20 Reported Clopidogrel (Clopidogrel Bisulfate) 75 Mg Tablet 1 Tab PO DAILY 04/28/20 Reported Atorvastatin Calcium 10 Mg Tablet 10 Mg PO HS 04/28/20 Reported Acetaminophen 650 Mg/20.3 Ml Solution 650 Mg PO PRN PRN 04/28/20 Reported Comments CXR IMPRESSION: 1. Small inspiration. Correlate with other data to differentiate mild multifocal pneumonic infiltrates from atelectasis. Impression . 1. Acute hypoxic respiratory failure secondary to COVID-19 pneumonia. 2. Abnormal chest x-ray with faint interstitial infiltrates suggestive of COVID-19 pneumonia. She was recently positive with COVID-19. 3. Underlying obesity. 4. Multiple comorbidities including history of CVA with contractures. 5. Chronic kidney disease. 6. DM w/ hyperglycemia Plan . RECOMMENDATIONS: 1. The patient is clinically improving. Her oxygen requirements are down to 2 liters. 2. Continue empiric antibiotic, change to po today 3. Continue with steroids with gradual taper. 4. If she remains afebrile, she could be discharged back to skilled care on minimal oxygen of 2 liters. 5. DVT prophylaxis with Lovenox. 6. Discussed with DAT Guzman to D[facility] as she remains a-febrile D/W RN Pt. is UYE ZULETA MD May 01, 2020 11:27
--- NOTE | 2020-05-01 12:00 | PDOC ---
[employer] PROGRESS NOTE Date of Service DOS: DATE: 05/01/20 TIME: 11:59 Chief Complaint Chief Complaint A/P: Acute encephalopathy - multifactorial with hypoxia and metabolic derangement as well as UTI. Will treat UTI Acute hypoxia - likely related to COVID 19, will initiated steroids, lovenox, consult Pulm for further recommendations, will consider convalescent FFP and experimental remdesivir if she defervesces JEVON - likely vasomotor nephropathy, will hydrate aggressively, encourage PO UTI - with confusion will treat with cefepime, f/u culture results. >100K e. coli Blood culture positive - gram positive cocci in multiple bottles, will need continued IV treatment. Pneumonia - likely COVID 19 related, possibly gram negative as well will treat Protein calorie malnutrition - moderate, will have junior underwriter to see Hypernatremia - likely from poor PO intake, will treat Hypomagnesemia - will treat Sepsis - likely COVID 19 and UTI related, will cont IV fluids and antibiotics H/o CVA with contractures - cont statin, ASA therapy DM2 - sliding scale insulin + basal bolus HLD - cont statin Anemia - likely of chronic disease CAD - stable, will cont meds H/o Gout - no pain complaints currently FEN - ADA diet, NSS 125cc/hr PPX - lovenox DNR/DNI Dispo - inpatient at least 2 midnights. History of Present Illness History of Present Illness Ms Vu is a 69yo F SNF resident w/ PMHx CVA with contractures, DM2, HLD, An emia, CAD, Gout who presents to ED via [facility] from [facility] for worsening mental status since 04/25/2020. She has been nonverbal since then, per report via EMS she normally is verbal, she was also notably hypoxic down to 84%. She improved on 4L NCO2 and ABG PO2 on 4L NCO2 was 79. She was febrile to 101.1 F as well. She was recently diagnosed with COVID19 and was doing well until 04/25/2020. Labs significant for NA 147, BUN 22, CR 1.8, albumin 2.9, magnesium 1.5, UA positive leukocyte esterase and bacteria. CT head negative for acute intracranial abnormality, CXR concerning for bilateral interstitial infiltrates. EKG: Normal sinus rhythm rate of [address]-T changes Admitted for further treatment. 04/29: Urine with greater than 100,000 CFU of E. coli. She is less confused today. Afebrile. 1 2 blood culture positive for GPC. 04/30: Urine with E. coli sensitive to penicillins and cephalosporins, resistant to ciprofloxacin. Blood cultures x2+ for GPC no sensitivities back. She is on less oxygen feels like she is near her baseline now. Blood cultures returned with staph capitis which is normal certainly a contami nant, and change to oral Augmentin, discussed with pulmonology she is currently off oxygen and will continue Lovenox therapy for 1 week and steroid taper. Vitals/I&O Vitals/I&O: Vital Signs Date Time Temp Pulse Resp B/P (MAP) Pulse Ox O2 Delivery O2 Flow Rate FiO2 05/01/20 11:00 97.8 75 18 170/81 (110) 100 Nasal Cannula 2.0 97.8 I & O 04/30/20 04/30/20 05/01/20 15:00 23:00 07:00 Intake Total 200 ml Output Total 300 ml 400 ml Balance -300 ml -200 ml Physical Exam General: Alert, Cooperative, mild distress Abdomen: Normal bowel sounds, Soft, No tenderness, No hepatosplenomegaly, No masses Extremities: No clubbing, No cyanosis, No edema, Normal pulses, No tenderness/swelling Skin: No rashes, No breakdown, No significant lesion Labs Labs: Laboratory Tests Test 04/30/20 16:52 04/30/20 20:42 05/01/20 07:14 Glucose (Fingerstick) 326 mg/dL (70-99) 330 mg/dL (70-99) 362 mg/dL (70-99) Assessment and Plan Assessmemt and Plan Problems Medical Problems: (1) Altered mental status Status: Acute (2) COVID-19 virus infection Status: Acute (3) Urinary tract infection Status: Acute Comment Review of Relevant I have reviewed the following items daniel (where applicable) has been applied. Medications: Current Medications Medications (Trade) Dose Ordered Sig/Rossana Route PRN Reason Start Time Stop Time Status Last Admin Dose Admin Insulin Human Lispro (HumaLOG) 15 units 1X ONCE SQ 04/30/20 12:45 04/30/20 12:46 DC 04/30/20 12:40 Insulin Human Lispro (HumaLOG) 17 units 1X ONCE SQ 05/01/20 08:15 05/01/20 08:16 DC 05/01/20 10:34 Justicifation of Admission Dx: Justifications for Admission: Justification of Admission Dx: Yes Respiratory Failure: Non-Cardiac Pulm Edema HOWIE CHAPMAN MD May 01, 2020 12:00
[2020-05-01] MEDS ORDERED: TRAM100C3 PO (13:33)
[2020-05-01] MEDS ORDERED: LACT1CAP19 PO (13:33)
[2020-05-01] MEDS ORDERED: FENT1PAT17 TD (13:33)
[2020-05-01] MEDS ORDERED: ENOX40DI3 SQ (13:33)
[2020-05-01] MEDS ORDERED: AMOX1TAB11 PO (13:33)
--- NOTE | 2020-05-01 13:34 | SNU/HH DC ---
DISCHARGE ORDERS DISCHARGE INFORMATION: DISCHARGE DATE: May 01, 2020 FINAL DIAGNOSIS Problems Medical Problems: (1) Altered mental status Status: Acute (2) COVID-19 virus infection Status: Acute (3) Urinary tract infection Status: Acute CONDITION ON DISCHARGE: Stable CODE STATUS: Code Status: DNR/DNI NURSING HOME: SNF STAY <30 DAYS: Yes POST DISCHARGE ORDERS: ACTIVITY ORDERS: Activity as tolerated WEIGHT BEARING STATUS: As tolerated DIET AFTER DISCHARGE: ADA CHECKS AFTER DISCHARGE: CHECKS AFTER DISCHARGE: Check blood press - daily TREATMENT/EQUIPMENT ORDERS: RESPIRATORY EQUIPMENT NEEDED: Oxygen Physical Therapy For: Evalulation/Treatment Occupational Therapy For: Evaluation/Treatment DISCHARGE MEDICATIONS: Home Meds Active Scripts Prednisone (PREDNISONE) 20 Mg Tablet, 1 TAB PO DAILY for COVID 19 for 5 Days, #5 TAB Prov:HOWIE CHAPMAN MD 05/01/20 Lactobacillus Rhamnosus Gg (CULTURELLE) 1 Each Cap.sprink, 1 CAP PO BID for Diarrhea for 30 Days, #60 CAP Prov:HOWIE CHAPMAN MD 05/01/20 Enoxaparin Sodium (ENOXAPARIN SODIUM) 40 Mg/0.4 Ml Disp.syrin, 40 MG SQ DAILY for COVID 19 for 7 Days, #7 DIS.SYR Prov:HOWIE CHAPMAN MD 05/01/20 Amoxicillin/Potassium Clav (AMOX TR-K CLV 875-125 MG TAB) 1 Each Tablet, 1 TAB PO BID for UTI for 3 Days, #6 TAB Prov:HOWIE CHAPMAN MD 05/01/20 Tramadol HCl (Tramadol HCl ER) 100 Mg Cpbp.25.75, 50 MG PO PRN Q6HRS PRN for PAIN for 6 Days, #15 EACH Prov:HOWIE CHAPMAN MD 05/01/20 Fentanyl (FENTANYL 50mcg/hr) 1 Each Patch.td72, 1 PATCH TD Q72H for Pain for 30 Days, #10 PATCH Prov:HOWIE CHAPMAN MD 05/01/20 Reported Medications Nystatin (NYSTATIN) 15 Gm Powder, 15 GM TP BID for redness, MISC 04/28/20 Insulin Lispro (HUMALOG) 100 Unit/1 Ml Vial, 100 UNIT SQ TIDBFRMEAL for DM, VIAL 04/28/20 Losartan Potassium (LOSARTAN POTASSIUM) 100 Mg Tablet, 100 MG PO DAILY for HYPERTENSION, TAB 04/28/20 Loperamide Hcl (LOPERAMIDE) 2 Mg Tablet, 2 MG PO PRN Q4-6HRS for Diarrhea, TAB 04/28/20 Furosemide (FUROSEMIDE) 20 Mg Tablet, 1 TAB PO DAILY for CHF, #90 TAB 1 Refill 04/28/20 Insulin Glargine,Hum.rec.anlog (LANTUS SOLOSTAR) 100 Unit/1 Ml Insuln.pen, 25 UNIT SQ QHS for DM, #15 ML 5 Refills 04/28/20 Hydralazine Hcl (HYDRALAZINE HCL) 50 Mg Tablet, 1 TAB PO BID for HTN, #180 TAB 3 Refills 04/28/20 Carvedilol (CARVEDILOL) 25 Mg Tablet, 25 MG PO BIDWMEALS for CARDIAC, TAB 04/28/20 Docusate Sodium (COLACE) 100 Mg Capsule, 1 CAP PO BID for constipation for 30 Days, #60 CAP 0 Refills 04/28/20 Clopidogrel Bisulfate (CLOPIDOGREL) 75 Mg Tablet, 1 TAB PO DAILY for Anticoag, #90 TAB 1 Refill 04/28/20 Atorvastatin Calcium (ATORVASTATIN CALCIUM) 10 Mg Tablet, 10 MG PO HS for FOR CHOLESTEROL, #30 TAB 0 Refills 04/28/20 Acetaminophen (Acetaminophen) 650 Mg/20.3 Ml Solution, 650 MG PO PRN PRN for MILD PAIN 1-3, MISC 04/28/20 HOWIE CHAPMAN MD May 01, 2020 13:34
[2020-05-01] MEDS ORDERED: PRED20TA PO (13:40)
[2020-05-01 13:41] LABS: CALCIUM 10.5 mg/dL (8.5-10.1); CREATININE 1.3 mg/dL (0.6-1.0); MAGNESIUM 1.9 mg/dL (1.8-2.4); POTASSIUM 3.8 mmol/L (3.5-5.1)
--- NOTE | 2020-05-01 13:45 | PDOC3 ---
Discharge Summary Visit Information Date of Admission: Apr 28, 2020 Date of Discharge: May 01, 2020 Admitting Diagnosis: Acute encephalopathy Final Diagnosis Problems Medical Problems: (1) Altered mental status Status: Acute (2) COVID-19 virus infection Status: Acute (3) Urinary tract infection Status: Acute Brief Hospital Course Allergies Allergies Coded Allergies Type Severity Reaction Last Updated Verified No Known Drug Allergies 04/28/20 No Vital Signs Vital Signs Date Time Temp Pulse Resp B/P (MAP) Pulse Ox O2 Delivery O2 Flow Rate FiO2 05/01/20 11:00 97.8 75 18 170/81 (110) 100 Nasal Cannula 2.0 97.8 Lab Results Laboratory Tests Test 04/29/20 15:59 04/29/20 20:32 04/30/20 07:37 04/30/20 11:56 Glucose (Fingerstick) 270 mg/dL (70-99) 223 mg/dL (70-99) 280 mg/dL (70-99) 351 mg/dL (70-99) Test 04/30/20 16:52 04/30/20 20:42 05/01/20 07:14 05/01/20 12:15 Glucose (Fingerstick) 326 mg/dL (70-99) 330 mg/dL (70-99) 362 mg/dL (70-99) 424 mg/dL (70-99) Laboratory Tests Test 04/30/20 16:52 04/30/20 20:42 05/01/20 07:14 05/01/20 12:15 Glucose (Fingerstick) 326 mg/dL (70-99) 330 mg/dL (70-99) 362 mg/dL (70-99) 424 mg/dL (70-99) Brief Hospital Course Ms Vu is a 69yo F SNF resident w/ PMHx CVA with contractures, DM2, HLD, Anemia, CAD, Gout who presents to ED via [facility] from SNF for worsening mental status since 04/25/2020. She has been nonverbal since then, per report via EMS she normally is verbal, she was also notably hypoxic down to 84%. She improved on 4L NCO2 and ABG PO2 on 4L NCO2 was 79. She was febrile to 101.1 F as well. She was recently diagnosed with COVID19 on 04/18/2020 and was doing well until 04/25/2020. Labs significant for NA 147, BUN 22, CR 1.8, albumin 2.9, magnesium 1.5, UA positive leukocyte esterase and bacteria. CT head negative for acute intracranial abnormality, CXR concerning for bilateral interstitial infiltrates. Found with gluteal ulcer EKG: Normal sinus rhythm rate of [address]-T changes Admitted for further treatment. 04/29: Urine with greater than 100,000 CFU of E. coli. She is less confused today. Afebrile. 1 2 blood culture positive for GPC. 04/30: Urine with E. coli sensitive to penicillins and cephalosporins, resistant to ciprofloxacin. Blood cultures x2+ for GPC no sensitivities back. She is on less oxygen feels like she is near her baseline now. Blood cultures returned with staph capitis which is normal certainly a contaminant, and change to oral Augmentin, discussed with pulmonology she is currently off oxygen and will continue Lovenox therapy for 1 week and steroid taper. Problem list: Acute encephalopathy - Resolving. multifactorial with hypoxia and metabolic derangement as well as UTI. Will treat UTI Acute hypoxia - likely related to COVID 19, will initiated steroids, lovenox, consult Pulm for further recommendations, wean as tolerated JEVON - likely vasomotor nephropathy, will hydrate aggressively, encourage PO UTI - with confusion will treat with cefepime, f/u culture results. >100K e. coli, d/c on augmentin Blood culture positive - gram positive cocci in multiple bottles, staph capitis is known contaminant, does not require treatment Pneumonia - likely COVID 19 related, possibly gram negative as well will treat Protein calorie malnutrition - moderate, will have pickling operator to see Hypernatremia - likely from poor PO intake, will treat Hypomagnesemia - will treat Sepsis - likely COVID 19 and UTI related, resolved H/o CVA with contractures - cont statin, ASA therapy DM2 - sliding scale insulin + basal bolus HLD - cont statin Anemia - likely of chronic disease CAD - stable, will cont meds H/o Gout - no pain complaints currently Sacral decubitus ulcer - stage I/II - local wound care Consults: Pulm Greater than 30 minutes spent on d/c back to SNF Discharge Information Condition at Discharge: Improved Follow Up: Weeks (1) Disposition/Orders: D/C to Another Facility Scheduled Amoxicillin/Potassium Clav (Amox Tr-K Clv 875-125 Mg Tab) 1 Each Tablet, 1 TAB PO BID for UTI for 3 Days, #6 Prescribed by: HOWIE CHAPMAN MD on 05/01/203 Atorvastatin Calcium (Atorvastatin Calcium) 10 Mg Tablet, 10 MG PO HS for FOR CHOLESTEROL, #30 Ref 0 (Reported) Entered as Reported by: SUMIT CORONA RN on 04/28/201737 Last Taken: UNKNOWN on Unknown Date & Time Last Action: Continued on 04/28/201753 by SUMIT CORONA RN Carvedilol (Carvedilol) 25 Mg Tablet, 25 MG PO BIDWMEALS for CARDIAC, (Reported) Entered as Reported by: SUMIT CORONA RN on 04/28/201737 Last Taken: UNKNOWN on Unknown Date & Time Last Action: Converted on 04/28/201754 by SUMIT CORONA RN Clopidogrel Bisulfate (Clopidogrel) 75 Mg Tablet, 1 TAB PO DAILY for Anticoag, #90 Ref 1 (Reported) Entered as Reported by: SUMIT CORONA RN on 04/28/201737 Last Taken: UNKNOWN on Unknown Date & Time Last Action: Continued on 04/28/201753 by SUMIT CORONA RN Docusate Sodium (Colace) 100 Mg Capsule, 1 CAP PO BID for constipation for 30 Days, #60 Ref 0 (Reported) Entered as Reported by: SUMIT CORONA RN on 04/28/201737 Last Taken: UNKNOWN on Unknown Date & Time Last Action: Continued on 04/28/201753 by SUMIT CORONA RN Enoxaparin Sodium (Enoxaparin Sodium) 40 Mg/0.4 Ml Disp.syrin, 40 MG SQ DAILY for COVID 19 for 7 Days, #7 Prescribed by: HOWIE CHAPMAN MD on 05/01/20 1333 Fentanyl (FENTANYL 50mcg/hr) 1 Each Patch.td72, 1 PATCH TD Q72H for Pain for 30 Days, #10 Prescribed by: HOWIE CHAPMAN MD on 05/01/20 1333 Furosemide (Furosemide) 20 Mg Tablet, 1 TAB PO DAILY for CHF, #90 Ref 1 (Reported) Entered as Reported by: SUMIT CORONA RN on 04/28/201737 Last Taken: UNKNOWN on Unknown Date & Time Last Action: Continued on 04/28/201754 by SUMIT CORONA RN Hydralazine Hcl (Hydralazine Hcl) 50 Mg Tablet, 1 TAB PO BID for HTN, #180 Ref 3 (Reported) Entered as Reported by: SUMIT CORONA RN on 04/28/201737 Last Action: Continued on 04/28/201754 by SUMIT CORONA RN Insulin Glargine,Hum.rec.anlog (Lantus Solostar) 100 Unit/1 Ml Insuln.pen, 25 UNIT SQ QHS for DM, #15 Ref 5 (Reported) Entered as Reported by: SUMIT CORONA RN on 04/28/201737 Last Taken: UNKNOWN on Unknown Date & Time Last Action: Converted on 04/28/201754 by SUMIT CORONA RN Insulin Lispro (Humalog) 100 Unit/1 Ml Vial, 100 UNIT SQ TIDBFRMEAL for DM, (Reported) Entered as Reported by: SUMIT CORONA RN on 04/28/201742 Last Taken: UNKNOWN on Unknown Date & Time Last Action: New Order on 04/28/201742 by SUMIT CORONA RN Lactobacillus Rhamnosus Gg (Culturelle) 1 Each Cap.sprink, 1 CAP PO BID for Diarrhea for 30 Days, #60 Prescribed by: HOWIE CHAPMAN MD on 05/01/201332 Loperamide Hcl (Loperamide) 2 Mg Tablet, 2 MG PO PRN Q4-6HRS for Diarrhea, (Re ported) Entered as Reported by: SUMIT CORONA RN on 04/28/201742 Last Taken: UNKNOWN on Unknown Date & Time Last Action: Converted on 04/28/201754 by SUMIT CORONA RN Losartan Potassium (Losartan Potassium) 100 Mg Tablet, 100 MG PO DAILY for HYPERTENSION, (Reported) Entered as Reported by: SUMIT CORONA RN on 04/28/201742 Last Taken: UNKNOWN on Unknown Date & Time Last Action: Converted on 04/28/201754 by SUMIT CORONA RN Nystatin (Nystatin) 15 Gm Powder, 15 GM TP BID for redness, (Reported) Entered as Reported by: SUMIT CORONA RN on 8/17/20 1743 Last Taken: UNKNOWN on Unknown Date & Time Last Action: Continued on 04/28/201754 by SUMIT CORONA RN Prednisone (Prednisone) 20 Mg Tablet, 1 TAB PO DAILY for COVID 19 for 5 Days, #5 Prescribed by: HOWIE CHAPMAN MD on 05/01/20 1340 Scheduled PRN Acetaminophen (Acetaminophen) 650 Mg/20.3 Ml Solution, 650 MG PO PRN PRN for MILD PAIN 1-3, (Reported) Entered as Reported by: SUMIT CORONA RN on 04/28/20 1738 Last Taken: UNKNOWN on Unknown Date & Time Last Action: Continued on 04/28/201753 by SUMIT CORONA RN Tramadol HCl (Tramadol HCl ER) 100 Mg Cpbp.25.75, 50 MG PO PRN Q6HRS PRN for PAIN for 6 Days, #15 Prescribed by: HOWIE CHAPMAN MD on 05/01/20 1333 Justicifation of Admission Dx: Justifications for Admission: Justification of Admission Dx: Yes Respiratory Failure: Non-Cardiac Pulm Edema HOWIE CHAPMAN MD May 01, 2020 13:45
[2020-05-01] MEDS: fentaNYL 50MCG/HR PATCH 1 PATCH PATCH.TD72 TD SCH (15:30)
--- NOTE | 2020-05-01 17:21 | NUR ---
[facility] SENT WITH PT AT TIME OF DISCHARGE [facility]. PT LEFT VIA PRIVATE TRANSPORT SET UP THROUGH [facility]. REPORT CALLED TO [facility]ARR[facility] AT [facility]. NEW FENTANYL PATCH PLACED TO LEFT SHOULDER DATED, SKIN PREP AND SURE SITE WINDOW DRESSING ON. NURSE NOTIFIED. PTS FAMILY NOTIFIED OF THE PTS DISCHARGE TO THE FACILITY. PTS [facility] REMOVED PRIOR TO DISCHARGE THE FACILITY STATED THAT THE PT DID NOT COME WITH [facility] AND THEY WOULD NOT ACCEPT PT BACK WITH IT. IV REMOVED. BATH GIVEN. PT CHANGED.
[2020-05-01] MEDS ORDERED: AMOXICILLIN/K CLAV 875/125MG TABLET. PO SCH (21:00)
[2020-05-02] MEDS ORDERED: methylPREDNISolone SOD SUCC PF 40 MG/ML VIAL. IV SCH (09:00)
== END 2020-05-01 17:15 | DRG 871 ==
LOC: ER 09:43 → 6 SOUTH 11:41
PROVIDERS: ADMIT Internal Medicine; ATTEND Internal Medicine
DX: A41.89 Other specified sepsis (principal); U07.1 COVID-19; J96.01 Acute respiratory failure with hypoxia; G93.41 Metabolic encephalopathy; J12.89 Other viral pneumonia; N17.0 Acute kidney failure with tubular necrosis; E44.0 Moderate protein-calorie malnutrition; E87.0 Hyperosmolality and hypernatremia; J98.11 Atelectasis; N39.0 Urinary tract infection, site not specified; Z16.23 Resistance to quinolones and fluoroquinolones; D63.8 Anemia in other chronic diseases classified elsewhere; E11.22 Type 2 diabetes mellitus with diabetic chronic kidney disease; E11.65 Type 2 diabetes mellitus with hyperglycemia; E66.9 Obesity, unspecified; E78.00 Pure hypercholesterolemia, unspecified; E78.5 Hyperlipidemia, unspecified; E83.42 Hypomagnesemia; E86.0 Dehydration; I12.9 Hypertensive chronic kidney disease with stage 1 through stage 4 chronic kidney disease, or unspecified chronic kidney disease; I25.10 Atherosclerotic heart disease of native coronary artery without angina pectoris; L89.151 Pressure ulcer of sacral region, stage 1; L98.419 Non-pressure chronic ulcer of buttock with unspecified severity; N18.9 Chronic kidney disease, unspecified; Z66 Do not resuscitate; Z86.73 Personal history of transient ischemic attack (TIA), and cerebral infarction without residual deficits; Z68.33 Body mass index [BMI] 33.0-33.9, adult
CPT/HCPCS: 36415; 36600; 51702; 71045; 80048; 80053; 80069; 80307; 81001; 82140; 82550; 82805; 82962; 83540; 83550; 83605; 83690; 83735; 84145; 84443; 84484; 85007; 85025; 87040; 87077; 87086; 87186; 87205; 93005; 96361; 96374; 99285; J0692; J1650; J1815; J2920; J3475; J7030; G0378

== ENCOUNTER 2020-06-02 17:57 | Emergency (ER) | payer OTHER ==
[~2020-06-02] VITALS: Ht 165.1 cm; Wt 91.0 kg
[~2020-06-02 17:57] MED LIST: ACET650S19 PO; AMOX1TAB11 PO; ATOR10TA60 PO; CARV25TA2 PO; CLOP75TA PO; DOCU-109 PO; ENOX40DI3 SQ; FENT1PAT17 TD; FURO20TA3 PO; HYDR-2869 PO; INSU100I13 SQ; INSU100V6 SQ; LACT1CAP19 PO; LOPE2TAB27 PO; LOSA100T14 PO; NYST15PO9 TP; PRED20TA PO; TRAM100C3 PO
--- NOTE | 2020-06-02 18:24 | PHYS DOC ---
Past Medical History Past Medical History: Anemia, CAD, CVA, Diabetes-Type II, High Cholesterol Additional Past Medical Histor: CONTRACTURES, GOUT, COVID 19, Past Surgical History: Other Additional Past Surgical Histo: UNKNOWN Smoking Status: Former Smoker Alcohol Use: None General Adult EDM: Chief Complaint: MECHANICAL FALL HPI: HPI: The history was obtained from the EMS. Patient is a 69-year-old female with PMH CVA, CAD, diabetes, COVID who presents with a chief complaint of fall. Per EMS they were called to the patient's facility due to her being found on the ground in her room. They state that she must have rolled out of bed onto the ground. They state physical therapy was working with her 1 hour prior to arrival and they have forgotten to placed her bed guardrail up. States she was knocked down for more than 30 minutes. Patient has no pain complaints. EMS states prior to arrival she was complaining of buttocks pain on the left. She is nonambulatory at baseline. She has not tried medicine prior to arrival. They state her GCS i s 14 at baseline due to her history of stroke. States that her mentation has not been changed per her facility. No other complaints. Review of Systems: Review of Systems: Constitutional: Denies fever or chills. [] Eyes: Denies change in visual acuity. [] HENT: Denies nasal congestion or sore throat. [] Respiratory: Denies cough or shortness of breath. [] Cardiovascular: Denies chest pain or edema. [] GI: Denies abdominal pain, nausea, vomiting, bloody stools or diarrhea. [] : Denies dysuria. [] Musculoskeletal: Positive for fall Integument: Denies rash. [] Neurologic: Denies headache, focal weakness or sensory changes. [] Endocrine: Denies polyuria or polydipsia. [] Lymphatic: Denies swollen glands. [] Psychiatric: Denies depression or anxiety. [] Heart Score: Risk Factors: Risk Factors: DM, Current or recent (<one month) smoker, HTN, HLP, family history of CAD, obesity. Risk Scores: Score 0 - 3: 2.5% MACE over next 6 weeks - Discharge Home Score 4 - 6: 20.3% MACE over next 6 weeks - Admit for Clinical Observation Score 7 - 10: 72.7% MACE over next 6 weeks - Early Invasive Strategies Allergies: Allergies: Allergies Coded Allergies Type Severity Reaction Last Updated Verified No Known Drug Allergies 04/28/20 No Physical Exam: PE: Physical Exam Trauma: Primary Survey: Airway: Intact. Speaks in normal voice and phonation. Breathing: Breath sounds are clear and equal bilaterally. Circulation: Regular rhythm, 2+ and symmetric radial, DP and PT pulses. Disability: GCS on arrival was 14. Pupils 3 mm, ERRL Exposure: Complete exposure obtained and described in detail below. Secondary Survey: General: Awake, alert, appropriate, and in no acute distress HENT: Atraumatic. TMs clear bilaterally, no hemotympanum. No periorbital tenderness or deformity. No obvious craniofacial trauma. Midface is stable. No apparent dental or tongue/oropharyngeal injury. No septal hematoma. Neck: C-spine: no midline tenderness. Without step-off, deformity, abrasion, ecchymosis, or other signs of trauma. Paraspinal musculature with no tenderness and/or hypertonicity. Eyes: Pupils 3 mm ERRL, EOMI grossly, no evidence of ocular trauma, conjunctivae normal Respiratory: CTAB without wheezing, rhonchi, or rales. No distress. Chest wall with no tenderness to palpation. No crepitus, ecchymosis, or flail segment present. Cardiovascular: Regular rhythm without murmurs noted. 2+ and symmetric radial, DP and PT pulses. GI: Soft, non-tender, non-distended Musculoskeletal: T-spine: no midline tenderness. Without step-off, deformity, abrasion, ecchymo sis, or other signs of trauma. Paraspinal musculature with no tenderness and/or hypertonicity. L-spine: no midline tenderness. Without step-off, deformity, abrasion, ecchymosis, or other signs of trauma. Paraspinal musculature with no tenderness and/or hypertonicity. RUE: Active ROM, no obvious deformity, no gross weakness or sensory deficits, warm & well-perfused LUE: Active ROM, no obvious deformity, no gross weakness or sensory deficits, warm & well-perfused RLE: Active ROM, no obvious deformity, no gross weakness or sensory deficits, warm & well-perfused LLE: Active ROM, no obvious deformity, no gross weakness or sensory deficits, warm & well-perfused Integument: Without abrasions, contusions, or lacerations. Neurologic: GCS on arrival as noted above. No obvious focal motor or sensory deficits on examination. Gait not assessed due to acuity of trauma assessment. Current Patient Data: Vital Signs: Vital Signs Date Time Temp Pulse Resp B/P (MAP) Pulse Ox O2 Delivery O2 Flow Rate FiO2 06/02/20 18:55 99.8 82 20 130/59 (82) 98 Room Air 99.8 EKG: EKG: [] Radiology/Procedures: Radiology/Procedures: [facility] [address] [place] [address] IMAGING REPORT Signed PATIENT: MONTSE QIU ACCOUNT: [id number] : 1950 LOCATION: ER AGE: 69 SEX: F EXAM STATUS: REG ER ORD. PHYSICIAN: GABRIEL GOFF DO REASON: LEFT SIDE HEAD PAIN AFTER ROLLING OUT OF BED TODAY PROCEDURE: CT HEAD WO CONTRAST CT scan of the head without contrast 06/02/2020 Clinical History: Left-sided head pain post fall. Technique: Unenhanced, contiguous, 5 mm axial sections were obtained through the head. One or more of the following individualized dose reduction techniques were utilized for this study: 1. Automated exposure control. 2. Adjustment of the mA and/or kV according to patient size. 3. Use of iterative reconstruction technique. Findings: Images from the study are degraded by patient motion. There is generalized parenchymal atrophy. Areas of decreased attenuation are seen within the periventricular and subcortical white matter of both cerebral hemispheres consistent with areas of small vessel ischemic disease. Areas of encephalomalacia are seen involving the right frontal and parietal lobes. No acute parenchymal abnormality is seen. No extra-axial fluid collection is noted. No skull fracture is seen. Impression: No acute intracranial abnormality is seen. Electronically signed by: Lukasz Alexander MD (06/02/2020 9:10 PM) [id number] DICTATED and SIGNED BY: LUKASZ ALEXANDER MD DATE: 06/02/202109 [facility] [address] [place] [address] IMAGING REPORT Signed PATIENT: MNOTSE QIU ACCOUNT: [id number] : 1950 LOCATION: ER AGE: 69 SEX: F EXAM STATUS: REG ER ORD. PHYSICIAN: GABRIEL GOFF DO REASON: fall PROCEDURE: PELVIS PELVIS Clinical Indication: Reason: fall / Spl. Instructions: / History: Comparison: None. Findings: No acute displaced pelvic fracture is identified. There are bilateral hip arthroplasties. There is no hip dislocation. No acute proximal femur fracture. Lucency along the medial right acetabular component could indicate loosening. There are numerous phleboliths in the pelvis. There are moderate arterial calcifications. Degenerative endplate spurring in the lower lumbar spine. IMPRESSION: No acute displaced pelvic fracture. Electronically signed by: Perry Joseph MD (06/02/2020 7:24 PM) [facility] DICTATED and SIGNED BY: PERRY JOSEPH MD DATE: 06/02/201923 [facility] [address] [place], [place] [id number] IMAGING REPORT Signed PATIENT: MONTSE QIU ACCOUNT: [id number] : 1950 LOCATION: ER AGE: 69 SEX: F EXAM STATUS: REG ER ORD. PHYSICIAN: GABRIEL GOFF DO REASON: fall PROCEDURE: CHEST AP ONLY AP portable chest radiograph 06/02/2020 Clinical History: Fall. An AP erect portable digital radiograph of the chest was obtained. Comparison study is dated 04/28/2020. The patient is rotated to the right. The cardiac silhouette is mildly enlarged. The thoracic aorta is tortuous. Atherosclerotic calcification of the thoracic aorta is seen. Slight prominence of pulmonary vasculature is seen suggesting mild CHF. No pneumothorax or pleural effusion is noted. There is diffuse osteopenia of the visualized bony structures. Degenerative changes are seen involving the thoracic spine and both shoulders. The osseous structures are grossly intact. IMPRESSION: Findings suggesting mild CHF. Electronically signed by: Lukasz Alexander MD (06/02/2020 7:29 PM) [id number] DICTATED and SIGNED BY: LUKASZ AELXANDER MD DATE: 06/02/201928 [] Course & Med Decision Making: Course & Med Decision Making Pertinent Labs and Imaging studies reviewed. (See chart for details) [] Patient is a 69-year-old female presents with chief complaint of rolling out of bed just prior to arrival. Staff at her facility were concerned for injury. Patient denies any pain related complaints to me. Chest and pelvis x-rays were negative. Patient is on her home oxygen level. Vital signs are overall stable. Are not see any indication for laboratory analysis or further advanced imaging. Staff states she is mentating at her baseline. Patient will be discharged home back to her facility for monitoring. Return precautions discussed and understood. We will for discharge home. Dragon Disclaimer: [employer] Disclaimer: This electronic medical record was generated, in whole or in part, using a voice recognition dictation system. Departure Departure Impression: Primary Impression: Fall Qualified Codes: W19.XXXA - Unspecified fall, initial encounter Disposition: HOME, SELF-CARE Condition: STABLE Referrals: NON,STAFF (PCP) Patient Instructions: Fall Prevention and Home Safety Additional Instructions: [facility] [address] [place] [address] [facility] [address] [place] [address] [facility] [address] [facility] [place] [address] [facility] [address] [place] [address] [facility] [address] [place] [address] [address] [place] [address] [address] [place] [address] [facility] [address] [place] [address] [facility] [address] [place] [address] [facility] [address] [place] [address] Justicifation of Admission Dx: Justifications for Admission: Justification of Admission Dx: N/A GABRIEL GOFF DO Jun 02, 2020 18:24
--- NOTE | 2020-06-02 19:27 | RAD ---
PELVIS Clinical Indication: Reason: fall / Spl. Instructions: / History: Comparison: None. Findings: No acute displaced pelvic fracture is identified. There are bilateral hip arthroplasties. There is no hip dislocation. No acute proximal femur fracture. Lucency along the medial right acetabular component could indicate loosening. There are numerous phleboliths in the pelvis. There are moderate arterial calcifications. Degenerative endplate spurring in the lower lumbar spine. IMPRESSION: No acute displaced pelvic fracture. Electronically signed by: Perry Joseph MD (06/02/2020 7:24 PM) [email or web address]
--- NOTE | 2020-06-02 19:32 | RAD ---
AP portable chest radiograph 06/02/2020 Clinical History: Fall. An AP erect portable digital radiograph of the chest was obtained. Comparison study is dated 04/28/2020. The patient is rotated to the right. The cardiac silhouette is mildly enlarged. The thoracic aorta is tortuous. Atherosclerotic calcification of the thoracic aorta is seen. Slight prominence of pulmonary vasculature is seen suggesting mild CHF. No pneumothorax or pleural effusion is noted. There is diffuse osteopenia of the visualized bony structures. Degenerative changes are seen involving the thoracic spine and both shoulders. The osseous structures are grossly intact. IMPRESSION: Findings suggesting mild CHF. Electronically signed by: Lukasz Alexander MD (06/02/2020 7:29 PM) [id number]
[2020-06-02 19:55] VITALS: BP 115/71
--- NOTE | 2020-06-02 21:13 | RAD ---
CT scan of the head without contrast 06/02/2020 Clinical History: Left-sided head pain post fall. Technique: Unenhanced, contiguous, 5 mm axial sections were obtained through the head. One or more of the following individualized dose reduction techniques were utilized for this study: 1. Automated exposure control. 2. Adjustment of the mA and/or kV according to patient size. 3. Use of iterative reconstruction technique. Findings: Images from the study are degraded by patient motion. There is generalized parenchymal atrophy. Areas of decreased attenuation are seen within the periventricular and subcortical white matter of both cerebral hemispheres consistent with areas of small vessel ischemic disease. Areas of encephalomalacia are seen involving the right frontal and parietal lobes. No acute parenchymal abnormality is seen. No extra-axial fluid collection is noted. No skull fracture is seen. Impression: No acute intracranial abnormality is seen. Electronically signed by: Lukasz Alexander MD (06/02/2020 9:10 PM) [id number]
== END 2020-06-02 21:51 | disposition home or self-care (01) ==
LOC: ER 17:57
DX: M54.5 Low back pain (principal); G89.11 Acute pain due to trauma; R51 Headache; R10.2 Pelvic and perineal pain; R07.89 Other chest pain; E11.9 Type 2 diabetes mellitus without complications; E78.00 Pure hypercholesterolemia, unspecified; M10.9 Gout, unspecified; I25.10 Atherosclerotic heart disease of native coronary artery without angina pectoris; Z87.891 Personal history of nicotine dependence; Z86.73 Personal history of transient ischemic attack (TIA), and cerebral infarction without residual deficits; W06.XXXA Fall from bed, initial encounter; Y93.89 Activity, other specified; Y92.89 Other specified places as the place of occurrence of the external cause; Y99.8 Other external cause status
CPT/HCPCS: 70450; 71045; 72170; 99284

== ENCOUNTER 2020-09-23 00:56 | Inpatient (IN) | payer OTHER ==
[~2020-09-23] VITALS: Ht 157.5 cm; Wt 95.6 kg
--- NOTE | 2020-09-23 01:05 | ED.ADGEN ---
Past Medical History Past Medical History: Anemia, CAD, CVA, Diabetes-Type II, High Cholesterol Additional Past Medical Histor: CONTRACTURES, GOUT, COVID 19, Past Surgical History: Other Additional Past Surgical Histo: UNKNOWN Smoking Status: Former Smoker Alcohol Use: None General Adult EDM: Chief Complaint: ABNORMAL LABS HPI: HPI: Patient is a 70 year old female who presents via EMS at 1 AM from nursing facility. Patient had labs drawn at 10 AM the previous day however resulted around midnight. She had some episodes of vomiting earlier which prompted the lab draw and a KUB. Labs showed her BUN and creatinine were elevated. Patient does not have a history of renal failure. Patient is alert oriented x2 and history was obtained from EMS and report from nursing facility. They state that her p.o. intake has been at 50% recently. Per chart review she was hospitalized with COVID-19 in April. Review of Systems: Review of Systems: Limited by patient's mental status Current Medications: Current Medications Medications (Trade) Dose Ordered Sig/Rossana Start Time Stop Time Status Last Admin Dose Admin Ondansetron HCl (Zofran) 4 mg PRN Q8HRS PRN 09/23/20 02:45 09/24/20 02:44 Sodium Chloride 1,000 ml @ 100 mls/hr Q10H 09/23/20 02:45 09/24/20 02:44 Allergies: Allergies: Allergies Coded Allergies Type Severity Reaction Last Updated Verified No Known Drug Allergies 04/28/20 No Physical Exam: PE: Constitutional: Well developed, well nourished, no acute distress, non-toxic appearance. [] HENT: Normocephalic, atraumatic, bilateral external ears normal, nose normal. [] Eyes: PERRLA, conjunctiva normal, no discharge. [] Neck: No rigidity, supple, no stridor. [] Cardiovascular: Regular rate and rhythm, brisk cap refill [] Lungs & Thorax: Non labored symmetric respirations, no tachypnea or respiratory distress [] Abdomen: Soft, nondistended. Skin: Warm, dry, no erythema, no rash. [] Back: No tenderness, no CVA tenderness. [] Extremities: No deformities, range of motion grossly intact, no lower extremity edema [] Neurologic: Alert and oriented X 2, no focal deficits noted. [] Psychologic: Affect normal, judgement normal, mood normal. [] Current Patient Data: Labs: Laboratory Tests Test 09/23/20 01:30 09/23/20 02:24 White Blood Count 8.9 x10^3/uL (4.0-11.0) Red Blood Count 3.36 x10^6/uL (3.50-5.40) L Hemoglobin 9.7 g/dL (12.0-15.5) L Hematocrit 28.4 % (36.0-47.0) L Mean Corpuscular Volume 85 fL (79-100) Mean Corpuscular Hemoglobin 29 pg (25-35) Mean Corpuscular Hemoglobin Concent 34 g/dL (31-37) Red Cell Distribution Width 13.7 % (11.5-14.5) Platelet Count 284 x10^3/uL (140-400) Neutrophils (%) (Auto) 72 % (31-73) Lymphocytes (%) (Auto) 17 % (24-48) L Monocytes (%) (Auto) 7 % (0-9) Eosinophils (%) (Auto) 4 % (0-3) H Basophils (%) (Auto) 0 % (0-3) Neutrophils # (Auto) 6.4 x10^3/uL (1.8-7.7) Lymphocytes # (Auto) 1.5 x10^3/uL (1.0-4.8) Monocytes # (Auto) 0.6 x10^3/uL (0.0-1.1) Eosinophils # (Auto) 0.4 x10^3/uL (0.0-0.7) Basophils # (Auto) 0.0 x10^3/uL (0.0-0.2) Sodium Level 143 mmol/L (136-145) Potassium Level 5.7 mmol/L (3.5-5.1) H Chloride Level 109 mmol/L (98-107) H Carbon Dioxide Level 17 mmol/L (21-32) L Anion Gap 17 (6-14) H Blood Urea Nitrogen 150 mg/dL (7-20) H Creatinine 3.7 mg/dL (0.6-1.0) H Estimated GFR (Cockcroft-Gault) 14.6 BUN/Creatinine Ratio 41 (6-20) H Glucose Level 107 mg/dL (70-99) H Lactic Acid Level 1.8 mmol/L (0.4-2.0) Calcium Level 9.9 mg/dL (8.5-10.1) Phosphorus Level 5.7 mg/dL (2.6-4.7) H Magnesium Level 2.0 mg/dL (1.8-2.4) Total Bilirubin 0.2 mg/dL (0.2-1.0) Aspartate Amino Transferase (AST) 12 U/L (15-37) L Alanine Aminotransferase (ALT) 20 U/L (14-59) Alkaline Phosphatase 63 U/L (46-116) Troponin I Quantitative < 0.017 ng/mL (0.000-0.055) TY-Pbg-I-Type Natriuretic Peptide 542 pg/mL (0-124) H Total Protein 8.3 g/dL (6.4-8.2) H Albumin 3.4 g/dL (3.4-5.0) Albumin/Globulin Ratio 0.7 (1.0-1.7) L Urine Collection Type U cath Urine Color Yellow Urine Clarity Cloudy Urine pH 6.0 (<5.0-8.0) Urine Specific [place] 1.015 (1.000-1.030) Urine Protein 30 mg/dL (NEG-TRACE) Urine Glucose (UA) Negative mg/dL (NEG) Urine Ketones (Stick) Negative mg/dL (NEG) Urine Blood Negative (NEG) Urine Nitrite Negative (NEG) Urine Bilirubin Negative (NEG) Urine Urobilinogen Dipstick 0.2 mg/dL (0.2 mg/dL) Urine Leukocyte Esterase Large (NEG) Urine RBC 3-5 /HPF (0-2) Urine WBC Tntc /HPF (0-4) Urine Squamous Epithelial Cells Occ /LPF Urine Amorphous Sediment Present /HPF Urine Bacteria Moderate /HPF (0-FEW) Urine Mucus Slight /LPF Laboratory Tests 09/23/20 01:30 Laboratory Tests 09/23/20 01:30 Vital Signs: Vital Signs Date Time Temp Pulse Resp B/P (MAP) Pulse Ox O2 Delivery O2 Flow Rate FiO2 09/23/20 01:34 70 12 104/56 (72) 96 Room Air 09/23/20 00:58 98.2 98.2 EKG: EKG: Sinus rhythm, heart rate 69 bpm, left axis deviation baseline interpretation limited by artifact, no obvious ST elevation or depression [] Heart Score: Risk Factors: Risk Factors: DM, Current or recent (<one month) smoker, HTN, HLP, family history of CAD, obesity. Risk Scores: Score 0 - 3: 2.5% MACE over next 6 weeks - Discharge Home Score 4 - 6: 20.3% MACE over next 6 weeks - Admit for Clinical Observation Score 7 - 10: 72.7% MACE over next 6 weeks - Early Invasive Strategies Radiology/Procedures: Radiology/Procedures: EXAM: AP View of the chest DATE: 09/23/2020 1:20 AM INDICATION: renal failure COMPARISON: 06/02/2020 FINDINGS: The heart is not enlarged. Aortic calcifications are seen. Patchy opacities medial right lung base. Right hilar prominence. No pleural effusion or pneumothorax. [] Course & Med Decision Making: Course & Med Decision Making Pertinent Labs and Imaging studies reviewed. (See chart for details) [] Dragon Disclaimer: Dragon Disclaimer: This electronic medical record was generated, in whole or in part, using a voice recognition dictation system. Departure Departure Impression: Primary Impression: Acute renal insufficiency Additional Impression: UTI (urinary tract infection) Disposition: 09 ADMITTED INPT THIS HOSP Admitting Physician: Preston Saab Condition: STABLE Referrals: PRESTON SAAB MD (PCP) Problem Qualifiers VILMA DOSHI MD Sep 23, 2020 01:05
[2020-09-23 01:41] LABS: BASO % 0 % (0-3); EOS # 0.4 x10^3/uL (0.0-0.7); EOS % 4 % (0-3); HEMATOCRIT 28.4 % (36.0-47.0); HEMOGLOBIN 9.7 g/dL (12.0-15.5); LYMPH # 1.5 x10^3/uL (1.0-4.8); LYMPH % 17 % (24-48); MEAN CORPUSCULAR HEMOGLOBIN 29 pg (25-35); MEAN CORPUSCULAR HGB CONC 34 g/dL (31-37); MEAN CORPUSCULAR VOLUME 85 fL (79-100); MONO # 0.6 x10^3/uL (0.0-1.1); MONO % 7 % (0-9); NEUT # 6.4 x10^3/uL (1.8-7.7); NEUT % 72 % (31-73); PLATELET COUNT 284 x10^3/uL (140-400); RED BLOOD COUNT 3.36 x10^6/uL (3.50-5.40); RED CELL DISTRIBUTION WIDTH 13.7 % (11.5-14.5); WHITE BLOOD COUNT 8.9 x10^3/uL (4.0-11.0)
[2020-09-23 01:53] LABS: CALCIUM 9.9 mg/dL (8.5-10.1); CREATININE 3.7 mg/dL (0.6-1.0); GFR 14.6; POTASSIUM 5.7 mmol/L (3.5-5.1)
[2020-09-23 01:58] LABS: ALBUMIN 3.4 g/dL (3.4-5.0); ALBUMIN/GLOBULIN RATIO 0.7 (1.0-1.7); PHOSPHORUS 5.7 mg/dL (2.6-4.7); TOTAL BILIRUBIN 0.2 mg/dL (0.2-1.0); TOTAL PROTEIN 8.3 g/dL (6.4-8.2)
--- NOTE | 2020-09-23 02:08 | EKG ---
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
[2020-09-23] MEDS ORDERED: IV NORMAL SALINE 500ML BAG 500 ML IV ONE (02:15)
--- NOTE | 2020-09-23 02:17 | RAD ---
EXAM: AP View of the chest DATE: 09/23/2020 1:20 AM INDICATION: renal failure COMPARISON: 06/02/2020 FINDINGS: The heart is not enlarged. Aortic calcifications are seen. Patchy opacities medial right lung base. Right hilar prominence. No pleural effusion or pneumothorax. IMPRESSION: Patchy opacities medial right lung base, possibly atelectasis. Electronically signed by: Erik Herring MD (09/23/2020 2:15 AM) SANDY
[2020-09-23 02:32] LABS: BILIRUBIN,URINE NEGATIVE (NEG); CLARITY,URINE CLOUDY; COLOR,URINE YELLOW; NITRITE,URINE NEGATIVE (NEG); PROTEIN,URINE 30 mg/dL (NEG-TRACE); UROBILINOGEN,URINE 0.2 mg/dL (0.2 mg/dL)
[2020-09-23 02:45] LABS: AMORPHOUS SEDIMENT,UR PRESENT /HPF; BACTERIA,URINE MODERATE /HPF (0-FEW); WBC,URINE TNTC /HPF (0-4)
[2020-09-23] MEDS ORDERED: ONDANSETRON PF 4 MG/2 ML VIAL. IV PRN ×2 (02:45→15:45)
[2020-09-23] MEDS ORDERED: cefTRIAXone IV Push 1 GM VIAL. IVP ONE (03:00)
[2020-09-23] MEDS: IV NORMAL SALINE 1000ML BAG 1,000 ML IV SCH ×2 (03:26→16:18)
[2020-09-23] MEDS ORDERED: ACET325T21 PO (07:44)
[2020-09-23] MEDS ORDERED: INSU100C4 SQ (07:47)
[2020-09-23] MEDS ORDERED: METF10007 PO (07:47)
[2020-09-23] MEDS ORDERED: MULT-735 PO (07:47)
--- NOTE | 2020-09-23 10:31 | PDOC1 ---
History and Physical Date of Admission Date of Admission DATE: 09/23/20 TIME: 10:31 Past Medical History Past Medical History Past Medical History Past Medical History Past Medical History: Anemia, CAD, CVA, Diabetes-Type II, High Cholesterol Additional Past Medical Histor: CONTRACTURES, GOUT, COVID 19, Past Surgical History: Other Additional Past Surgical Histo: UNKNOWN Smoking Status: Former Smoker Alcohol Use: None fhx obesity Cardiovascular: HTN, Hyperlipidemia CENTRAL NERVOUS SYSTEM: CVA Rheumatologic: Gout Endocrine: Diabetes Past Surgical History Past Surgical History: No pertinent history Family History Family History: Family History Unknown Social History ALCOHOL: none Drugs: None Current Problem List Problem List Problems Medical Problems: (1) Acute renal insufficiency Status: Acute (2) UTI (urinary tract infection) Status: Acute Current Medications Current Medications Current Medications Sodium Chloride 500 ml @ 500 mls/hr 1X ONCE IV Last administered on 09/23/20at 02:18; Start 09/23/20 at 02:15; Stop 09/23/20 at 03:14; Status DC Ondansetron HCl (Zofran) 4 mg PRN Q8HRS PRN IV NAUSEA/VOMITING Last adminis tered on 09/23/20at 03:27; Start 09/23/20 at 02:45; Stop 09/24/20 at 02:44 Sodium Chloride 1,000 ml @ 100 mls/hr Q10H IV Last administered on 09/23/20at 03:26; Start 09/23/20 at 02:45; Stop 09/24/20 at 02:44 Ceftriaxone Sodium (Rocephin) 1 gm 1X ONCE IVP Last administered on 09/23/20at 03:22; Start 09/23/20 at 03:00; Stop 09/23/20 at 03:01; Status DC Active Scripts Active Prednisone 20 Mg Tablet 1 Tab PO DAILY 5 Days Culturelle (Lactobacillus Rhamnosus Gg) 1 Each Cap.sprink 1 Cap PO BID 30 Days Enoxaparin Sodium 40 Mg/0.4 Ml Disp.syrin 40 Mg SQ DAILY 7 Days Amox Tr-K Clv 875-125 Mg Tab (Amoxicillin/Potassium Clav) 1 Each Tablet 1 Tab PO BID 3 Days Tramadol HCl ER (Tramadol HCl) 100 Mg Cpbp.25.75 50 Mg PO PRN Q6HRS PRN 6 Days FENTANYL 50mcg/hr (Fentanyl) 1 Each Patch.td72 1 Patch TD Q72H 30 Days Reported Novolog (Insulin Aspart) 100 Unit/1 Ml Cartridge 10 Unit SQ TID One-Daily Multi-Vitamin (Multivitamin) 1 Each Tablet 1 Tab PO DAILY 30 Days Metformin Hcl 1,000 Mg Tablet 1,000 Mg PO BIDWMEALS Acetaminophen 325 Mg Tablet 2 Tab PO PRN Q6HRS PRN 24 Days Nystatin 15 Gm Powder 15 Gm TP BID Losartan Potassium 100 Mg Tablet 100 Mg PO DAILY Loperamide (Loperamide Hcl) 2 Mg Tablet 2 Mg PO PRN Q4-6HRS Furosemide 20 Mg Tablet 1 Tab PO DAILY Lantus Solostar (Insulin Glargine,Hum.rec.anlog) 100 Unit/1 Ml Insuln.pen 25 Unit SQ QHS Hydralazine Hcl 50 Mg Tablet 1 Tab PO BID Carvedilol 25 Mg Tablet 25 Mg PO BIDWMEALS Colace (Docusate Sodium) 100 Mg Capsule 1 Cap PO BID 30 Days Clopidogrel (Clopidogrel Bisulfate) 75 Mg Tablet 1 Tab PO DAILY Atorvastatin Calcium 10 Mg Tablet 10 Mg PO HS Allergies Allergies: Coded Allergies: No Known Drug Allergies (Unverified , 04/28/20) Vitals Vitals Vital Signs Date Time Temp Pulse Resp B/P (MAP) Pulse Ox O2 Delivery O2 Flow Rate FiO2 09/23/20 09:00 78 15 117/57 (77) 96 Room Air 09/23/20 00:58 98.2 98.2 Labs Labs Laboratory Tests Test 09/23/20 01:30 09/23/20 02:24 09/23/20 06:47 09/23/20 10:01 White Blood Count 8.9 x10^3/uL (4.0-11.0) Red Blood Count 3.36 x10^6/uL (3.50-5.40) Hemoglobin 9.7 g/dL (12.0-15.5) Hematocrit 28.4 % (36.0-47.0) Mean Corpuscular Volume 85 fL (79-100) Mean Corpuscular Hemoglobin 29 pg (25-35) Mean Corpuscular Hemoglobin Concent 34 g/dL (31-37) Red Cell Distribution Width 13.7 % (11.5-14.5) Platelet Count 284 x10^3/uL (140-400) Neutrophils (%) (Auto) 72 % (31-73) Lymphocytes (%) (Auto) 17 % (24-48) Monocytes (%) (Auto) 7 % (0-9) Eosinophils (%) (Auto) 4 % (0-3) Basophils (%) (Auto) 0 % (0-3) Neutrophils # (Auto) 6.4 x10^3/uL (1.8-7.7) Lymphocytes # (Auto) 1.5 x10^3/uL (1.0-4.8) Monocytes # (Auto) 0.6 x10^3/uL (0.0-1.1) Eosinophils # (Auto) 0.4 x10^3/uL (0.0-0.7) Basophils # (Auto) 0.0 x10^3/uL (0.0-0.2) Sodium Level 143 mmol/L (136-145) Potassium Level 5.7 mmol/L (3.5-5.1) Chloride Level 109 mmol/L (98-107) Carbon Dioxide Level 17 mmol/L (21-32) Anion Gap 17 (6-14) Blood Urea Nitrogen 150 mg/dL (7-20) Creatinine 3.7 mg/dL (0.6-1.0) Estimated GFR (Cockcroft-Gault) 14.6 BUN/Creatinine Ratio 41 (6-20) Glucose Level 107 mg/dL (70-99) Lactic Acid Level 1.8 mmol/L (0.4-2.0) Calcium Level 9.9 mg/dL (8.5-10.1) Phosphorus Level 5.7 mg/dL (2.6-4.7) Magnesium Level 2.0 mg/dL (1.8-2.4) Total Bilirubin 0.2 mg/dL (0.2-1.0) Aspartate Amino Transf (AST/SGOT) 12 U/L (15-37) Alanine Aminotransferase (ALT/SGPT) 20 U/L (14-59) Alkaline Phosphatase 63 U/L (46-116) Troponin I Quantitative < 0.017 ng/mL (0.000-0.055) < 0.017 ng/mL (0.000-0.055) MK-Dww-P-Type Natriuretic Peptide 542 pg/mL (0-124) Total Protein 8.3 g/dL (6.4-8.2) Albumin 3.4 g/dL (3.4-5.0) Albumin/Globulin Ratio 0.7 (1.0-1.7) Urine Collection Type U cath Urine Color Yellow Urine Clarity Cloudy Urine pH 6.0 (<5.0-8.0) Urine Specific [place] 1.015 (1.000-1.030) Urine Protein 30 mg/dL (NEG-TRACE) Urine Glucose (UA) Negative mg/dL (NEG) Urine Ketones (Stick) Negative mg/dL (NEG) Urine Blood Negative (NEG) Urine Nitrite Negative (NEG) Urine Bilirubin Negative (NEG) Urine Urobilinogen Dipstick 0.2 mg/dL (0.2 mg/dL) Urine Leukocyte Esterase Large (NEG) Urine RBC 3-5 /HPF (0-2) Urine WBC Tntc /HPF (0-4) Urine Squamous Epithelial Cells Occ /LPF Urine Amorphous Sediment Present /HPF Urine Bacteria Moderate /HPF (0-FEW) Urine Mucus Slight /LPF Glucose (Fingerstick) 96 mg/dL (70-99) Laboratory Tests Test 09/23/20 01:30 09/23/20 02:24 09/23/20 06:47 09/23/20 10:01 White Blood Count 8.9 x10^3/uL (4.0-11.0) Red Blood Count 3.36 x10^6/uL (3.50-5.40) Hemoglobin 9.7 g/dL (12.0-15.5) Hematocrit 28.4 % (36.0-47.0) Mean Corpuscular Volume 85 fL (79-100) Mean Corpuscular Hemoglobin 29 pg (25-35) Mean Corpuscular Hemoglobin Concent 34 g/dL (31-37) Red Cell Distribution Width 13.7 % (11.5-14.5) Platelet Count 284 x10^3/uL (140-400) Neutrophils (%) (Auto) 72 % (31-73) Lymphocytes (%) (Auto) 17 % (24-48) Monocytes (%) (Auto) 7 % (0-9) Eosinophils (%) (Auto) 4 % (0-3) Basophils (%) (Auto) 0 % (0-3) Neutrophils # (Auto) 6.4 x10^3/uL (1.8-7.7) Lymphocytes # (Auto) 1.5 x10^3/uL (1.0-4.8) Monocytes # (Auto) 0.6 x10^3/uL (0.0-1.1) Eosinophils # (Auto) 0.4 x10^3/uL (0.0-0.7) Basophils # (Auto) 0.0 x10^3/uL (0.0-0.2) Sodium Level 143 mmol/L (136-145) Potassium Level 5.7 mmol/L (3.5-5.1) Chloride Level 109 mmol/L (98-107) Carbon Dioxide Level 17 mmol/L (21-32) Anion Gap 17 (6-14) Blood Urea Nitrogen 150 mg/dL (7-20) Creatinine 3.7 mg/dL (0.6-1.0) Estimated GFR (Cockcroft-Gault) 14.6 BUN/Creatinine Ratio 41 (6-20) Glucose Level 107 mg/dL (70-99) Lactic Acid Level 1.8 mmol/L (0.4-2.0) Calcium Level 9.9 mg/dL (8.5-10.1) Phosphorus Level 5.7 mg/dL (2.6-4.7) Magnesium Level 2.0 mg/dL (1.8-2.4) Total Bilirubin 0.2 mg/dL (0.2-1.0) Aspartate Amino Transf (AST/SGOT) 12 U/L (15-37) Alanine Aminotransferase (ALT/SGPT) 20 U/L (14-59) Alkaline Phosphatase 63 U/L (46-116) Troponin I Quantitative < 0.017 ng/mL (0.000-0.055) < 0.017 ng/mL (0.000-0.055) ZQ-Csa-U-Type Natriuretic Peptide 542 pg/mL (0-124) Total Protein 8.3 g/dL (6.4-8.2) Albumin 3.4 g/dL (3.4-5.0) Albumin/Globulin Ratio 0.7 (1.0-1.7) Urine Collection Type U cath Urine Color Yellow Urine Clarity Cloudy Urine pH 6.0 (<5.0-8.0) Urine Specific [place] 1.015 (1.000-1.030) Urine Protein 30 mg/dL (NEG-TRACE) Urine Glucose (UA) Negative mg/dL (NEG) Urine Ketones (Stick) Negative mg/dL (NEG) Urine Blood Negative (NEG) Urine Nitrite Negative (NEG) Urine Bilirubin Negative (NEG) Urine Urobilinogen Dipstick 0.2 mg/dL (0.2 mg/dL) Urine Leukocyte Esterase Large (NEG) Urine RBC 3-5 /HPF (0-2) Urine WBC Tntc /HPF (0-4) Urine Squamous Epithelial Cells Occ /LPF Urine Amorphous Sediment Present /HPF Urine Bacteria Moderate /HPF (0-FEW) Urine Mucus Slight /LPF Glucose (Fingerstick) 96 mg/dL (70-99) VTE Prophylaxis Ordered VTE Prophylaxis Devices: Yes VTE Pharmacological Prophylaxi: Yes Justifications for Admission Other Justification LILY LOPEZ MD Sep 23, 2020 10:31
--- NOTE | 2020-09-23 10:58 | PDOC1 ---
History and Physical Date of Admission Date of Admission DATE: 09/23/20 TIME: 10:57 Identification/Chief Complaint Chief Complaint SEEN IN ER WITH ACUTE RENAL INJURY 70 year old female who presents via EMS at 1 AM from nursing facility. Patient had labs drawn at 10 AM the previous day however resulted around midnight. She had some episodes of vomiting earlier which prompted the lab draw and a KUB. Labs showed her BUN and creatinine were elevated. Patient does not have a history of renal failure. Patient is alert oriented x2 and history was obtained from EMS and report from nursing facility. They state that her p.o. intake has been at 50% recently. Per chart review she was hospitalized with COVID-19 in April. 70yo F SNF resident w/ PMHx CVA with contractures, DM2, HLD, Anemia, CAD, Gout who presents to ED via [facility] from SNF for worsening mental status POOR INTAKE She was recently diagnosed with COVID19 on 04/18/2020 and was doing well TODAY Past Medical History Cardiovascular: HTN, Hyperlipidemia CENTRAL NERVOUS SYSTEM: CVA Rheumatologic: Gout Endocrine: Diabetes Past Surgical History Past Surgical History: No pertinent history Family History Family History: Hypertension, Family History Unknown Social History Smoke: No ALCOHOL: none Drugs: None Current Problem List Problem List Problems Medical Problems: (1) Acute renal insufficiency Status: Acute (2) UTI (urinary tract infection) Status: Acute Current Medications Current Medications Current Medications Sodium Chloride 500 ml @ 500 mls/hr 1X ONCE IV Last administered on 09/23/20at 02:18; Start 09/23/20 at 02:15; Stop 09/23/20 at 03:14; Status DC Ondansetron HCl (Zofran) 4 mg PRN Q8HRS PRN IV NAUSEA/VOMITING Last administered on 09/23/20at 03:27; Start 09/23/20 at 02:45; Stop 09/24/20 at 02:44 Sodium Chloride 1,000 ml @ 100 mls/hr Q10H IV Last administered on 09/23/20at 03:26; Start 09/23/20 at 02:45; Stop 09/24/20 at 02:44 Ceftriaxone Sodium (Rocephin) 1 gm 1X ONCE IVP Last administered on 09/23/20at 03:22; Start 09/23/20 at 03:00; Stop 09/23/20 at 03:01; Status DC Active Scripts Active Prednisone 20 Mg Tablet 1 Tab PO DAILY 5 Days Culturelle (Lactobacillus Rhamnosus Gg) 1 Each Cap.sprink 1 Cap PO BID 30 Days Enoxaparin Sodium 40 Mg/0.4 Ml Disp.syrin 40 Mg SQ DAILY 7 Days Amox Tr-K Clv 875-125 Mg Tab (Amoxicillin/Potassium Clav) 1 Each Tablet 1 Tab PO BID 3 Days Tramadol HCl ER (Tramadol HCl) 100 Mg Cpbp.25.75 50 Mg PO PRN Q6HRS PRN 6 Days FENTANYL 50mcg/hr (Fentanyl) 1 Each Patch.td72 1 Patch TD Q72H 30 Days Reported Novolog (Insulin Aspart) 100 Unit/1 Ml Cartridge 10 Unit SQ TID One-Daily Multi-Vitamin (Multivitamin) 1 Each Tablet 1 Tab PO DAILY 30 Days Metformin Hcl 1,000 Mg Tablet 1,000 Mg PO BIDWMEALS Acetaminophen 325 Mg Tablet 2 Tab PO PRN Q6HRS PRN 24 Days Nystatin 15 Gm Powder 15 Gm TP BID Losartan Potassium 100 Mg Tablet 100 Mg PO DAILY Loperamide (Loperamide Hcl) 2 Mg Tablet 2 Mg PO PRN Q4-6HRS Furosemide 20 Mg Tablet 1 Tab PO DAILY Lantus Solostar (Insulin Glargine,Hum.rec.anlog) 100 Unit/1 Ml Insuln.pen 25 Unit SQ QHS Hydralazine Hcl 50 Mg Tablet 1 Tab PO BID Carvedilol 25 Mg Tablet 25 Mg PO BIDWMEALS Colace (Docusate Sodium) 100 Mg Capsule 1 Cap PO BID 30 Days Clopidogrel (Clopidogrel Bisulfate) 75 Mg Tablet 1 Tab PO DAILY Atorvastatin Calcium 10 Mg Tablet 10 Mg PO HS Allergies Allergies: Coded Allergies: No Known Drug Allergies (Unverified , 04/28/20) ROS General: YES: Fatigue PSYCHOLOGICAL ROS: YES: Concentration difficultie; No: Anxiety, Behavioral Disorder, Decreased libido, Depression, Disorientation, Hallucinations, Hostility, Irritablity, Memory difficulties, Mood Swings, Obsessive thoughts, Physical abuse, Sexual abuse, Sleep disturbances, Suicidal ideation, Other Eyes: No Blurry vision, No Decreased vision, No Double vision, No Dry eyes, No Excessive tearing, No Eye Pain, No Itchy Eyes, No Loss of vision, No Photophobia, No Scotomata, No Uses contacts, No Uses glasses, No Other HEENT: No: Heacaches, Visual Changes, Hearing change, Nasal congestion, Nasal discharge, Oral lesions, Sinus pain, Sore Throat, Epistaxis, Sneezing, Snoring, Tinnitus, Vertigo, Vocal changes, Other ALLERGY AND IMMUNOLOGY: No: Hives, Insect Bite Sensitivity, Itchy/Watery Eyes, Nasal Congestion, Post Nasal Drip, Seasonal Allergies, Other Hematological and Lymphatic: No: Bleeding Problems, Blood Clots, Blood Transfusions, Brusing, Night Sweats, Pallor, Swollen Lymph Nodes, Other Respiratory: No: Cough, Hemoptysis, Orthopnea, Pleuritic Pain, Shortness of breath, SOB with excertion, Sputum Changes, Stridor, Tachypnea, Wheezing, Other Cardiovascular: No Chest Pain, No Palpitations, No Orthopnea, No Paroxysmal Noc. Dyspnea, No Edema, No Lt Headedness, No Other Gastrointestinal: No Nausea, No Vomiting, No Abdominal Pain, No Diarrhea, No Constipation, No Melena, No Hematochezia, No Other Genitourinary: No Dysuria, No Frequency, No Incontinence, No Hematuria, No Retention, No Discharge, No Urgency, No Pain, No Flank Pain, No Other, No , No , No , No , No , No , No Musculoskeletal: Yes Gait Disturbance, Yes Joint Stiffness; No Joint Pain, No Joint Swelling, No Muscle Pain, No Muscular Weakness, No Pain In:, No Swelling In:, No Other Neurological: Yes Dizziness, Yes Gait Disturbance Skin: Yes Dry Skin; No Eczema, No Hair Changes, No Lumps, No Mole Changes, No Mottling, No Nail Changes, No Pruritus, No Rash, No Skin Lesion Changes, No Other, No Acne Physical Exam General: Alert, Oriented X3, Cooperative, No acute distress Lungs: Clear to auscultation, Normal air movement Heart: RRR Breasts: Not examined Abdomen: Normal bowel sounds, Soft PELVIC: Examination not indicated Extremities: No cyanosis Neuro: Normal speech, Sensation intact, Cranial nerves 3-12 NL Psych/Mental Status: Mental status NL, Mood NL Vitals Vitals Vital Signs Date Time Temp Pulse Resp B/P (MAP) Pulse Ox O2 Delivery O2 Flow Rate FiO2 09/23/20 09:00 78 15 117/57 (77) 96 Room Air 09/23/20 00:58 98.2 98.2 Labs Labs Laboratory Tests Test 09/23/20 01:30 09/23/20 02:24 09/23/20 06:47 09/23/20 10:01 White Blood Count 8.9 x10^3/uL (4.0-11.0) Red Blood Count 3.36 x10^6/uL (3.50-5.40) Hemoglobin 9.7 g/dL (12.0-15.5) Hematocrit 28.4 % (36.0-47.0) Mean Corpuscular Volume 85 fL (79-100) Mean Corpuscular Hemoglobin 29 pg (25-35) Mean Corpuscular Hemoglobin Concent 34 g/dL (31-37) Red Cell Distribution Width 13.7 % (11.5-14.5) Platelet Count 284 x10^3/uL (140-400) Neutrophils (%) (Auto) 72 % (31-73) Lymphocytes (%) (Auto) 17 % (24-48) Monocytes (%) (Auto) 7 % (0-9) Eosinophils (%) (Auto) 4 % (0-3) Basophils (%) (Auto) 0 % (0-3) Neutrophils # (Auto) 6.4 x10^3/uL (1.8-7.7) Lymphocytes # (Auto) 1.5 x10^3/uL (1.0-4.8) Monocytes # (Auto) 0.6 x10^3/uL (0.0-1.1) Eosinophils # (Auto) 0.4 x10^3/uL (0.0-0.7) Basophils # (Auto) 0.0 x10^3/uL (0.0-0.2) Sodium Level 143 mmol/L (136-145) Potassium Level 5.7 mmol/L (3.5-5.1) Chloride Level 109 mmol/L (98-107) Carbon Dioxide Level 17 mmol/L (21-32) Anion Gap 17 (6-14) Blood Urea Nitrogen 150 mg/dL (7-20) Creatinine 3.7 mg/dL (0.6-1.0) Estimated GFR (Cockcroft-Gault) 14.6 BUN/Creatinine Ratio 41 (6-20) Glucose Level 107 mg/dL (70-99) Lactic Acid Level 1.8 mmol/L (0.4-2.0) Calcium Level 9.9 mg/dL (8.5-10.1) Phosphorus Level 5.7 mg/dL (2.6-4.7) Magnesium Level 2.0 mg/dL (1.8-2.4) Total Bilirubin 0.2 mg/dL (0.2-1.0) Aspartate Amino Transf (AST/SGOT) 12 U/L (15-37) Alanine Aminotransferase (ALT/SGPT) 20 U/L (14-59) Alkaline Phosphatase 63 U/L (46-116) Troponin I Quantitative < 0.017 ng/mL (0.000-0.055) < 0.017 ng/mL (0.000-0.055) CA-Yxc-S-Type Natriuretic Peptide 542 pg/mL (0-124) Total Protein 8.3 g/dL (6.4-8.2) Albumin 3.4 g/dL (3.4-5.0) Albumin/Globulin Ratio 0.7 (1.0-1.7) Urine Collection Type U cath Urine Color Yellow Urine Clarity Cloudy Urine pH 6.0 (<5.0-8.0) Urine Specific [place] 1.015 (1.000-1.030) Urine Protein 30 mg/dL (NEG-TRACE) Urine Glucose (UA) Negative mg/dL (NEG) Urine Ketones (Stick) Negative mg/dL (NEG) Urine Blood Negative (NEG) Urine Nitrite Negative (NEG) Urine Bilirubin Negative (NEG) Urine Urobilinogen Dipstick 0.2 mg/dL (0.2 mg/dL) Urine Leukocyte Esterase Large (NEG) Urine RBC 3-5 /HPF (0-2) Urine WBC Tntc /HPF (0-4) Urine Squamous Epithelial Cells Occ /LPF Urine Amorphous Sediment Present /HPF Urine Bacteria Moderate /HPF (0-FEW) Urine Mucus Slight /LPF Glucose (Fingerstick) 96 mg/dL (70-99) Laboratory Tests Test 09/23/20 01:30 09/23/20 02:24 09/23/20 06:47 09/23/20 10:01 White Blood Count 8.9 x10^3/uL (4.0-11.0) Red Blood Count 3.36 x10^6/uL (3.50-5.40) Hemoglobin 9.7 g/dL (12.0-15.5) Hematocrit 28.4 % (36.0-47.0) Mean Corpuscular Volume 85 fL (79-100) Mean Corpuscular Hemoglobin 29 pg (25-35) Mean Corpuscular Hemoglobin Concent 34 g/dL (31-37) Red Cell Distribution Width 13.7 % (11.5-14.5) Platelet Count 284 x10^3/uL (140-400) Neutrophils (%) (Auto) 72 % (31-73) Lymphocytes (%) (Auto) 17 % (24-48) Monocytes (%) (Auto) 7 % (0-9) Eosinophils (%) (Auto) 4 % (0-3) Basophils (%) (Auto) 0 % (0-3) Neutrophils # (Auto) 6.4 x10^3/uL (1.8-7.7) Lymphocytes # (Auto) 1.5 x10^3/uL (1.0-4.8) Monocytes # (Auto) 0.6 x10^3/uL (0.0-1.1) Eosinophils # (Auto) 0.4 x10^3/uL (0.0-0.7) Basophils # (Auto) 0.0 x10^3/uL (0.0-0.2) Sodium Level 143 mmol/L (136-145) Potassium Level 5.7 mmol/L (3.5-5.1) Chloride Level 109 mmol/L (98-107) Carbon Dioxide Level 17 mmol/L (21-32) Anion Gap 17 (6-14) Blood Urea Nitrogen 150 mg/dL (7-20) Creatinine 3.7 mg/dL (0.6-1.0) Estimated GFR (Cockcroft-Gault) 14.6 BUN/Creatinine Ratio 41 (6-20) Glucose Level 107 mg/dL (70-99) Lactic Acid Level 1.8 mmol/L (0.4-2.0) Calcium Level 9.9 mg/dL (8.5-10.1) Phosphorus Level 5.7 mg/dL (2.6-4.7) Magnesium Level 2.0 mg/dL (1.8-2.4) Total Bilirubin 0.2 mg/dL (0.2-1.0) Aspartate Amino Transf (AST/SGOT) 12 U/L (15-37) Alanine Aminotransferase (ALT/SGPT) 20 U/L (14-59) Alkaline Phosphatase 63 U/L (46-116) Troponin I Quantitative < 0.017 ng/mL (0.000-0.055) < 0.017 ng/mL (0.000-0.055) JK-Bnu-U-Type Natriuretic Peptide 542 pg/mL (0-124) Total Protein 8.3 g/dL (6.4-8.2) Albumin 3.4 g/dL (3.4-5.0) Albumin/Globulin Ratio 0.7 (1.0-1.7) Urine Collection Type U cath Urine Color Yellow Urine Clarity Cloudy Urine pH 6.0 (<5.0-8.0) Urine Specific [place] 1.015 (1.000-1.030) Urine Protein 30 mg/dL (NEG-TRACE) Urine Glucose (UA) Negative mg/dL (NEG) Urine Ketones (Stick) Negative mg/dL (NEG) Urine Blood Negative (NEG) Urine Nitrite Negative (NEG) Urine Bilirubin Negative (NEG) Urine Urobilinogen Dipstick 0.2 mg/dL (0.2 mg/dL) Urine Leukocyte Esterase Large (NEG) Urine RBC 3-5 /HPF (0-2) Urine WBC Tntc /HPF (0-4) Urine Squamous Epithelial Cells Occ /LPF Urine Amorphous Sediment Present /HPF Urine Bacteria Moderate /HPF (0-FEW) Urine Mucus Slight /LPF Glucose (Fingerstick) 96 mg/dL (70-99) Images Images EXAM: AP View of the chest DATE: 09/23/2020 1:20 AM INDICATION: renal failure COMPARISON: 06/02/2020 FINDINGS: The heart is not enlarged. Aortic calcifications are seen. Patchy opacities medial right lung base. Right hilar prominence. No pleural effusion or pneumothorax. IMPRESSION: Patchy opacities medial right lung base, possibly atelectasis. Electronically signed by: Erik Herring MD (09/23/2020 2:15 AM) [facility] DICTATED and SIGNED BY: ERIK HERRING MD VTE Prophylaxis Ordered VTE Prophylaxis Devices: Yes VTE Pharmacological Prophylaxi: Yes Assessment/Plan Assessment/Plan IMPRESSION: Patchy opacities medial right lung base, possibly atelectasis. ACUTE RENAL INJURY UTI - with confusion Pneumonia - likely COVID 19 related, RECOVERED Protein calorie malnutrition - moderate, Sepsis - H/o CVA with contractures - cont statin, ASA therapy DM2 - sliding scale insulin + basal bolus HLD - cont statin Anemia - likely of chronic disease CAD - stable, will cont meds H/o Gout - no pain complaints currently Sacral decubitus ulcer - stage I/II - local wound care uti PLAN ADMIT NEPHROLOGY CONSULT IV FLUID SUPPORT DVT PROPHYLAXIS IV ROCEPHIN 1 GM Q 24 HRS Justifications for Admission Other Justification LILY LOPEZ MD Sep 23, 2020 10:58
[2020-09-23] MEDS: DOCUSATE SODIUM 100 MG CAPSULE. PO SCH ×2 (11:51→20:08)
[2020-09-23] MEDS: CARVEDILOL 12.5 MG TABLET. PO SCH ×2 (11:52→17:00)
[2020-09-23] MEDS: CLOPIDOGREL BISULFATE 75 MG TABLET PO SCH (11:53)
[2020-09-23] MEDS: MULTIVITAMIN with MINERAL TABLET. PO SCH (11:53)
[2020-09-23] MEDS: LACTOBACILLUS RHAMNOSUS GG 1 CAPSULE. PO SCH ×2 (11:53→20:06)
[2020-09-23] MEDS: NYSTATIN TOPICAL POWDER 15GM BOTTLE. TP SCH ×2 (11:54→20:06)
[2020-09-23] MEDS: predniSONE 20 MG TABLET PO SCH (11:54)
[2020-09-23] MEDS: INSULIN LISPRO 300 UNITS/3 ML VIAL. SQ SCH ×2 (12:25→18:25)
[2020-09-23 14:44] VITALS: BP 103/59
--- NOTE | 2020-09-23 15:33 | PDOC2 ---
CONSULT Date of Consult Date of Consult DATE: 09/23/20 TIME: 15:25 Reason for Consult Reason for Consult: JEVON Referring Physician Referring Physician: JOHN Identification/Chief Complaint Chief Complaint CONFUSION Source Source: Chart review History of Present Illness Reason for Visit: THIS IS A 70 YR OLD [facility] ADMITTED AFTER LABS SHOWED INCREASED BUN AND CR C/W JEVON. HERE IN THE ER PT IS CONFUSED. JEVON WITH BUN OF 151 AND CR OF 3.7. HAS CKD STAGE 3B WITH CR OF 1.8 AT BASELINE. PER NURSING FACILITY HER PO INTAKE HAS BEEN VERY POOR. SHE HAS HYPERKALEMIA, AN AG MET ACIDOSIS AND AN UTI ON HER LABS WELL. HOME MEDS INCLUDED DIURETICS, AND ARB AND METFORMIN. HEMO DYNAMICALLY STABLE. NO STRUCTURAL ISSUES REPORTED. SHE RECENTLY HAS COVID 19 PNEUMONIA FROM WHICH SHE RECOVERED Past Medical History Cardiovascular: HTN, Hyperlipidemia CENTRAL NERVOUS SYSTEM: CVA Rheumatologic: Gout Renal/: Chronic renal insuff Endocrine: Diabetes Past Surgical History Past Surgical History: No pertinent history Family History Family History: Hypertension, Family History Unknown Social History No ALCOHOL: none Drugs: None Lives: [facility] Current Problem List Problem List Problems Medical Problems: (1) Acute renal insufficiency Status: Acute (2) UTI (urinary tract infection) Status: Acute Current Medications Current Medications Current Medications Sodium Chloride 500 ml @ 500 mls/hr 1X ONCE IV Last administered on 09/23/20at 02:18; Start 09/23/20 at 02:15; Stop 09/23/20 at 03:14; Status DC Ondansetron HCl (Zofran) 4 mg PRN Q8HRS PRN IV NAUSEA/VOMITING Last administered on 09/23/20at 03:27; Start 09/23/20 at 02:45; Stop 09/24/20 at 02:44 Sodium Chloride 1,000 ml @ 100 mls/hr Q10H IV Last administered on 09/23/20at 03:26; Start 09/23/20 at 02:45; Stop 09/24/20 at 02:44 Ceftriaxone Sodium (Rocephin) 1 gm 1X ONCE IVP Last administered on 09/23/20at 03:22; Start 09/23/20 at 03:00; Stop 09/23/20 at 03:01; Status DC Atorvastatin Calcium (Lipitor) 10 mg HS PO ; Start 09/23/20 at 21:00 Clopidogrel Bisulfate (Plavix) 75 mg DAILY PO Last administered on 09/23/20at 11:53; Start 09/23/20 at 12:00 Docusate Sodium (Colace) 100 mg BID PO Last administered on 09/23/20at 11:51; Start 09/23/20 at 12:00 Hydralazine HCl (Apresoline) 50 mg BID PO Last administered on 09/23/20at 11:53; Start 09/23/20 at 12:00 Lactobacillus Rhamnosus (Culturelle) 1 cap BID PO Last administered on 09/23/20at 11:53; Start 09/23/20 at 12:00 Nystatin (Nystop) 1 eros BID TP Last administered on 09/23/20 11:54; Start 09/23/20 at 12:00 Prednisone (Prednisone) 20 mg DAILY PO Last administered on 09/23/20at 11:54; Start 09/23/20 at 12:00 Carvedilol (Coreg) 25 mg BIDWMEALS PO Last administered on 09/23/20at 11:52; Start 09/23/20 at 12:00 Insulin Human Lispro (HumaLOG) 10 units TIDWMEALS SQ Last administered on 09/23/20at 12:25; Start 09/23/20 at 12:00 Multivitamins (Thera M Plus) 1 tab DAILY PO Last administered on 09/23/20at 11:53; Start 09/23/20 at 12:00 Ceftriaxone Sodium (Rocephin) 1 gm Q24H IVP ; Start 09/24/20 at 09:00 Active Scripts Active Prednisone 20 Mg Tablet 1 Tab PO DAILY 5 Days Culturelle (Lactobacillus Rhamnosus Gg) 1 Each Cap.sprink 1 Cap PO BID 30 Days Enoxaparin Sodium 40 Mg/0.4 Ml Disp.syrin 40 Mg SQ DAILY 7 Days Amox Tr-K Clv 875-125 Mg Tab (Amoxicillin/Potassium Clav) 1 Each Tablet 1 Tab PO BID 3 Days Tramadol HCl ER (Tramadol HCl) 100 Mg Cpbp.25.75 50 Mg PO PRN Q6HRS PRN 6 Days FENTANYL 50mcg/hr (Fentanyl) 1 Each Patch.td72 1 Patch TD Q72H 30 Days Reported Novolog (Insulin Aspart) 100 Unit/1 Ml Cartridge 10 Unit SQ TID One-Daily Multi-Vitamin (Multivitamin) 1 Each Tablet 1 Tab PO DAILY 30 Days Metformin Hcl 1,000 Mg Tablet 1,000 Mg PO BIDWMEALS Acetaminophen 325 Mg Tablet 2 Tab PO PRN Q6HRS PRN 24 Days Nystatin 15 Gm Powder 15 Gm TP BID Losartan Potassium 100 Mg Tablet 100 Mg PO DAILY Loperamide (Loperamide Hcl) 2 Mg Tablet 2 Mg PO PRN Q4-6HRS Furosemide 20 Mg Tablet 1 Tab PO DAILY Lantus Solostar (Insulin Glargine,Hum.rec.anlog) 100 Unit/1 Ml Insuln.pen 25 Unit SQ QHS Hydralazine Hcl 50 Mg Tablet 1 Tab PO BID Carvedilol 25 Mg Tablet 25 Mg PO BIDWMEALS Colace (Docusate Sodium) 100 Mg Capsule 1 Cap PO BID 30 Days Clopidogrel (Clopidogrel Bisulfate) 75 Mg Tablet 1 Tab PO DAILY Atorvastatin Calcium 10 Mg Tablet 10 Mg PO HS Allergies Allergies: Coded Allergies: No Known Drug Allergies (Unverified , 04/28/20) ROS Review of System UNABLE TO OBTAIN, CONFUSED Physical Exam General: Cooperative, No acute distress, severe distress (C) HEENT: Atraumatic, EOMI, Other (DRY MUCOSA) Lungs: Clear to auscultation Heart: Regular rate Abdomen: Normal bowel sounds, Soft Skin: No rashes, No breakdown Neuro: Other (CONFUSED) Psych/Mental Status: Other (CONFUSED) MUSCULOSKELETAL: No joint tenderness, No deformity, No muscular tenderness noted Vitals VITALS Vital Signs Date Time Temp Pulse Resp B/P (MAP) Pulse Ox O2 Delivery O2 Flow Rate FiO2 09/23/20 14:44 98.3 88 20 103/59 (74) 100 Room Air 98.3 Labs Labs Laboratory Tests Test 09/23/20 01:30 09/23/20 02:24 09/23/20 06:47 09/23/20 10:01 White Blood Count 8.9 x10^3/uL (4.0-11.0) Red Blood Count 3.36 x10^6/uL (3.50-5.40) Hemoglobin 9.7 g/dL (12.0-15.5) Hematocrit 28.4 % (36.0-47.0) Mean Corpuscular Volume 85 fL (79-100) Mean Corpuscular Hemoglobin 29 pg (25-35) Mean Corpuscular Hemoglobin Concent 34 g/dL (31-37) Red Cell Distribution Width 13.7 % (11.5-14.5) Platelet Count 284 x10^3/uL (140-400) Neutrophils (%) (Auto) 72 % (31-73) Lymphocytes (%) (Auto) 17 % (24-48) Monocytes (%) (Auto) 7 % (0-9) Eosinophils (%) (Auto) 4 % (0-3) Basophils (%) (Auto) 0 % (0-3) Neutrophils # (Auto) 6.4 x10^3/uL (1.8-7.7) Lymphocytes # (Auto) 1.5 x10^3/uL (1.0-4.8) Monocytes # (Auto) 0.6 x10^3/uL (0.0-1.1) Eosinophils # (Auto) 0.4 x10^3/uL (0.0-0.7) Basophils # (Auto) 0.0 x10^3/uL (0.0-0.2) Sodium Level 143 mmol/L (136-145) Potassium Level 5.7 mmol/L (3.5-5.1) Chloride Level 109 mmol/L (98-107) Carbon Dioxide Level 17 mmol/L (21-32) Anion Gap 17 (6-14) Blood Urea Nitrogen 150 mg/dL (7-20) Creatinine 3.7 mg/dL (0.6-1.0) Estimated GFR (Cockcroft-Gault) 14.6 BUN/Creatinine Ratio 41 (6-20) Glucose Level 107 mg/dL (70-99) Lactic Acid Level 1.8 mmol/L (0.4-2.0) Calcium Level 9.9 mg/dL (8.5-10.1) Phosphorus Level 5.7 mg/dL (2.6-4.7) Magnesium Level 2.0 mg/dL (1.8-2.4) Total Bilirubin 0.2 mg/dL (0.2-1.0) Aspartate Amino Transf (AST/SGOT) 12 U/L (15-37) Alanine Aminotransferase (ALT/SGPT) 20 U/L (14-59) Alkaline Phosphatase 63 U/L (46-116) Troponin I Quantitative < 0.017 ng/mL (0.000-0.055) < 0.017 ng/mL (0.000-0.055) NP-Lhv-H-Type Natriuretic Peptide 542 pg/mL (0-124) Total Protein 8.3 g/dL (6.4-8.2) Albumin 3.4 g/dL (3.4-5.0) Albumin/Globulin Ratio 0.7 (1.0-1.7) Urine Collection Type U cath Urine Color Yellow Urine Clarity Cloudy Urine pH 6.0 (<5.0-8.0) Urine Specific [place] 1.015 (1.000-1.030) Urine Protein 30 mg/dL (NEG-TRACE) Urine Glucose (UA) Negative mg/dL (NEG) Urine Ketones (Stick) Negative mg/dL (NEG) Urine Blood Negative (NEG) Urine Nitrite Negative (NEG) Urine Bilirubin Negative (NEG) Urine Urobilinogen Dipstick 0.2 mg/dL (0.2 mg/dL) Urine Leukocyte Esterase Large (NEG) Urine RBC 3-5 /HPF (0-2) Urine WBC Tntc /HPF (0-4) Urine Squamous Epithelial Cells Occ /LPF Urine Amorphous Sediment Present /HPF Urine Bacteria Moderate /HPF (0-FEW) Urine Mucus Slight /LPF Glucose (Fingerstick) 96 mg/dL (70-99) Laboratory Tests Test 09/23/20 01:30 09/23/20 02:24 09/23/20 06:47 09/23/20 10:01 White Blood Count 8.9 x10^3/uL (4.0-11.0) Red Blood Count 3.36 x10^6/uL (3.50-5.40) Hemoglobin 9.7 g/dL (12.0-15.5) Hematocrit 28.4 % (36.0-47.0) Mean Corpuscular Volume 85 fL (79-100) Mean Corpuscular Hemoglobin 29 pg (25-35) Mean Corpuscular Hemoglobin Concent 34 g/dL (31-37) Red Cell Distribution Width 13.7 % (11.5-14.5) Platelet Count 284 x10^3/uL (140-400) Neutrophils (%) (Auto) 72 % (31-73) Lymphocytes (%) (Auto) 17 % (24-48) Monocytes (%) (Auto) 7 % (0-9) Eosinophils (%) (Auto) 4 % (0-3) Basophils (%) (Auto) 0 % (0-3) Neutrophils # (Auto) 6.4 x10^3/uL (1.8-7.7) Lymphocytes # (Auto) 1.5 x10^3/uL (1.0-4.8) Monocytes # (Auto) 0.6 x10^3/uL (0.0-1.1) Eosinophils # (Auto) 0.4 x10^3/uL (0.0-0.7) Basophils # (Auto) 0.0 x10^3/uL (0.0-0.2) Sodium Level 143 mmol/L (136-145) Potassium Level 5.7 mmol/L (3.5-5.1) Chloride Level 109 mmol/L (98-107) Carbon Dioxide Level 17 mmol/L (21-32) Anion Gap 17 (6-14) Blood Urea Nitrogen 150 mg/dL (7-20) Creatinine 3.7 mg/dL (0.6-1.0) Estimated GFR (Cockcroft-Gault) 14.6 BUN/Creatinine Ratio 41 (6-20) Glucose Level 107 mg/dL (70-99) Lactic Acid Level 1.8 mmol/L (0.4-2.0) Calcium Level 9.9 mg/dL (8.5-10.1) Phosphorus Level 5.7 mg/dL (2.6-4.7) Magnesium Level 2.0 mg/dL (1.8-2.4) Total Bilirubin 0.2 mg/dL (0.2-1.0) Aspartate Amino Transf (AST/SGOT) 12 U/L (15-37) Alanine Aminotransferase (ALT/SGPT) 20 U/L (14-59) Alkaline Phosphatase 63 U/L (46-116) Troponin I Quantitative < 0.017 ng/mL (0.000-0.055) < 0.017 ng/mL (0.000-0.055) OS-Nfa-M-Type Natriuretic Peptide 542 pg/mL (0-124) Total Protein 8.3 g/dL (6.4-8.2) Albumin 3.4 g/dL (3.4-5.0) Albumin/Globulin Ratio 0.7 (1.0-1.7) Urine Collection Type U cath Urine Color Yellow Urine Clarity Cloudy Urine pH 6.0 (<5.0-8.0) Urine Specific [place] 1.015 (1.000-1.030) Urine Protein 30 mg/dL (NEG-TRACE) Urine Glucose (UA) Negative mg/dL (NEG) Urine Ketones (Stick) Negative mg/dL (NEG) Urine Blood Negative (NEG) Urine Nitrite Negative (NEG) Urine Bilirubin Negative (NEG) Urine Urobilinogen Dipstick 0.2 mg/dL (0.2 mg/dL) Urine Leukocyte Esterase Large (NEG) Urine RBC 3-5 /HPF (0-2) Urine WBC Tntc /HPF (0-4) Urine Squamous Epithelial Cells Occ /LPF Urine Amorphous Sediment Present /HPF Urine Bacteria Moderate /HPF (0-FEW) Urine Mucus Slight /LPF Glucose (Fingerstick) 96 mg/dL (70-99) Assessment/Plan Assessment/Plan IMP JEVON WITH CR OF 3.7 CKD STAGE 3B WITH CR OF 1.8 DEHYDRATION URINARY TRACT INFECTION MET ENCEPHALOPATHY PNEUMONIA MALNUTRITION SACRAL DECUBITI HX CVA WITH CONTRACTURES ANEMIA DM II PLAN HOLD ARB HOLD DIURETICS HYDRATION ANTIBIOTICS WILL FOLLOW LEXIE HUMPHREY MD Sep 23, 2020 15:33
[2020-09-23] MEDS ORDERED: SODIUM PHOSPHATES 19/7GM 133 ML ENEMA. PR PRN (15:45)
[2020-09-23] MEDS ORDERED: 0.9 % SODIUM CHLORIDE 10 ML DISP.SYRIN. IV PRN (15:45)
[2020-09-23] MEDS ORDERED: guaiFENesin ORAL 200 MG/10 ML LIQUID. PO PRN (15:45)
[2020-09-23] MEDS ORDERED: ALBUTEROL SULFATE 2.5 MG/3 ML NEBU. NEB PRN (15:45)
[2020-09-23] MEDS ORDERED: ACETAMINOPHEN 650 MG SUPP.RECT. PR PRN (15:45)
[2020-09-23] MEDS ORDERED: ACETAMINOPHEN 325 MG TABLET. PO PRN (15:45)
[2020-09-23] MEDS ORDERED: DOCUSATE SODIUM 100 MG CAPSULE. PO PRN (15:45)
[2020-09-23] MEDS ORDERED: MAG HYDROX/ALUMINUM HYD/SIMETH 30 ML ORAL.SUSP PO PRN (15:45)
--- NOTE | 2020-09-23 16:13 | NUR ---
OLIVIA received phone call from Opal Cooley at [facility]. If pt is just needing IV fluids and/or IV abx that is something they can do at the facility. Opal advised pt does not need a COVID test to return, as she has recently had COVID and will be in isolation when she returns anyway. OLIVIA will continue to follow.
[2020-09-23 19:00] VITALS: BP 94/44
[2020-09-23] MEDS: ATORVASTATIN CALCIUM 10 MG TABLET. PO SCH (20:06)
[2020-09-23] MEDS: ENOXAPARIN 40 MG/0.4 ML SYRINGE. SQ SCH (20:08)
[2020-09-23 23:00] VITALS: BP 104/52
[2020-09-24] MEDS: IV NORMAL SALINE 1000ML BAG 1,000 ML IV SCH ×2 (01:59→18:14)
[2020-09-24 03:00] VITALS: BP 120/69
[2020-09-24 07:00] VITALS: BP 135/60
[2020-09-24] MEDS: DOCUSATE SODIUM 100 MG CAPSULE. PO SCH ×3 (09:00→21:00)
[2020-09-24] MEDS: CLOPIDOGREL BISULFATE 75 MG TABLET PO SCH (09:14)
[2020-09-24] MEDS: LACTOBACILLUS RHAMNOSUS GG 1 CAPSULE. PO SCH ×2 (09:14→22:54)
[2020-09-24] MEDS: predniSONE 20 MG TABLET PO SCH (09:14)
[2020-09-24] MEDS: CARVEDILOL 12.5 MG TABLET. PO SCH ×2 (09:14→18:15)
[2020-09-24] MEDS: MULTIVITAMIN with MINERAL TABLET. PO SCH (09:14)
[2020-09-24] MEDS: NYSTATIN TOPICAL POWDER 15GM BOTTLE. TP SCH ×2 (09:15→21:00)
[2020-09-24] MEDS: INSULIN LISPRO 300 UNITS/3 ML VIAL. SQ SCH ×3 (09:22→18:05)
--- NOTE | 2020-09-24 10:42 | NUR ---
SW following. Discussed with RN. 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 Pt on room air, ada diet, IV abx. Per [facility], pt does not need a COVID test to return. Pt does have a intermediate benefit, so can return SNU if needed. [facility] advised SW yesterday they can do IV fluids and IV abx at the facility. Pt's creatinine being monitored. OLIVIA will continue to follow.
[2020-09-24 11:00] VITALS: BP 120/90
[2020-09-24] MEDS: cefTRIAXone IV Push 1 GM VIAL. IVP SCH (11:28)
--- NOTE | 2020-09-24 12:20 | PDOC ---
PROGRESS NOTES Date of Service: DATE: 09/24/20 TIME: 12:20 Chief Complaint Chief Complaint VTE Prophylaxis Ordered VTE Prophylaxis Devices: Yes VTE Pharmacological Prophylaxi: Yes Assessment/Plan Assessment/Plan IMPRESSION: Patchy opacities medial right lung base, possibly atelectasis. ACUTE RENAL INJURY UTI - with confusion Pneumonia - likely COVID 19 related, RECOVERED Protein calorie malnutrition - moderate, Sepsis - H/o CVA with contractures - cont statin, ASA therapy DM2 - sliding scale insulin + basal bolus HLD - cont statin Anemia - likely of chronic disease CAD - stable, will cont meds H/o Gout - no pain complaints currently Sacral decubitus ulcer - stage I/II - local wound care uti PLAN ADMIT NEPHROLOGY CONSULT IV FLUID SUPPORT DVT PROPHYLAXIS IV ROCEPHIN 1 GM Q 24 HRS Justifications for Admission Other Justification History of Present Illness History of Present Illness Identification/Chief Complaint Chief Complaint SEEN IN ER WITH ACUTE RENAL INJURY 70 year old female who presents via EMS at 1 AM from nursing facility. Patient had labs drawn at 10 AM the previous day however resulted around midnight. She had some episodes of vomiting earlier which prompted the lab draw and a KUB. Labs showed her BUN and creatinine were elevated. Patient does not have a history of renal failure. Patient is alert oriented x2 and history was obtained from EMS and report from nursing facility. They state that her p.o. intake has been at 50% recently. Per chart review she was hospitalized with COVID-19 in April. 70yo F SNF resident w/ PMHx CVA with contractures, DM2, HLD, Anemia, CAD, Gout who presents to ED via [facility] from SNF for worsening mental status POOR INTAKE She was recently diagnosed with COVID19 on 04/18/2020 and was doing well TODAY Past Medical History Cardiovascular: HTN, Hyperlipidemia CENTRAL NERVOUS SYSTEM: CVA Rheumatologic: Gout Endocrine: Diabetes Past Surgical History Past Surgical History: No pertinent history Family History Family History: Hypertension, Family History Unknown Social History Smoke: No ALCOHOL: none Drugs: None Current Problem List Problem List Problems Medical Problems: (1) Acute renal insufficiency Status: Acute (2) UTI (urinary tract infection) Status: Acute Vitals Vitals Vital Signs Date Time Temp Pulse Resp B/P (MAP) Pulse Ox O2 Delivery O2 Flow Rate FiO2 09/24/20 11:00 98.3 102 16 120/90 (100) 95 Room Air 98.3 Physical Exam Physical Exam Physical Exam General: Alert, Oriented X3, Cooperative, No acute distress Lungs: Clear to auscultation, Normal air movement Heart: RRR Breasts: Not examined Abdomen: Normal bowel sounds, Soft PELVIC: Examination not indicated Extremities: No cyanosis Neuro: Normal speech, Sensation intact, Cranial nerves 3-12 NL Psych/Mental Status: Mental status NL, Mood NL General: Cooperative, No acute distress, severe distress (C) Heart: Regular rate Abdomen: Normal bowel sounds, Soft Extremities: No cyanosis Skin: No rashes, No breakdown Labs LABS Laboratory Tests Test 09/23/20 16:42 09/23/20 21:00 09/24/20 07:28 09/24/20 11:05 Glucose (Fingerstick) 145 mg/dL (70-99) 204 mg/dL (70-99) 130 mg/dL (70-99) 117 mg/dL (70-99) Assessment and Plan Assessmemt and Plan Problems Medical Problems: (1) Acute renal insufficiency Status: Acute (2) UTI (urinary tract infection) Status: Acute Comment Review of Relevant I have reviewed the following items daniel (where applicable) has been applied. Labs Laboratory Tests Test 09/23/20 01:30 09/23/20 02:24 09/23/20 06:47 09/23/20 10:01 White Blood Count 8.9 x10^3/uL (4.0-11.0) Red Blood Count 3.36 x10^6/uL (3.50-5.40) Hemoglobin 9.7 g/dL (12.0-15.5) Hematocrit 28.4 % (36.0-47.0) Mean Corpuscular Volume 85 fL (79-100) Mean Corpuscular Hemoglobin 29 pg (25-35) Mean Corpuscular Hemoglobin Concent 34 g/dL (31-37) Red Cell Distribution Width 13.7 % (11.5-14.5) Platelet Count 284 x10^3/uL (140-400) Neutrophils (%) (Auto) 72 % (31-73) Lymphocytes (%) (Auto) 17 % (24-48) Monocytes (%) (Auto) 7 % (0-9) Eosinophils (%) (Auto) 4 % (0-3) Basophils (%) (Auto) 0 % (0-3) Neutrophils # (Auto) 6.4 x10^3/uL (1.8-7.7) Lymphocytes # (Auto) 1.5 x10^3/uL (1.0-4.8) Monocytes # (Auto) 0.6 x10^3/uL (0.0-1.1) Eosinophils # (Auto) 0.4 x10^3/uL (0.0-0.7) Basophils # (Auto) 0.0 x10^3/uL (0.0-0.2) Sodium Level 143 mmol/L (136-145) Potassium Level 5.7 mmol/L (3.5-5.1) Chloride Level 109 mmol/L (98-107) Carbon Dioxide Level 17 mmol/L (21-32) Anion Gap 17 (6-14) Blood Urea Nitrogen 150 mg/dL (7-20) Creatinine 3.7 mg/dL (0.6-1.0) Estimated GFR (Cockcroft-Gault) 14.6 BUN/Creatinine Ratio 41 (6-20) Glucose Level 107 mg/dL (70-99) Lactic Acid Level 1.8 mmol/L (0.4-2.0) Calcium Level 9.9 mg/dL (8.5-10.1) Phosphorus Level 5.7 mg/dL (2.6-4.7) Magnesium Level 2.0 mg/dL (1.8-2.4) Total Bilirubin 0.2 mg/dL (0.2-1.0) Aspartate Amino Transf (AST/SGOT) 12 U/L (15-37) Alanine Aminotransferase (ALT/SGPT) 20 U/L (14-59) Alkaline Phosphatase 63 U/L (46-116) Troponin I Quantitative < 0.017 ng/mL (0.000-0.055) < 0.017 ng/mL (0.000-0.055) AR-Ogz-M-Type Natriuretic Peptide 542 pg/mL (0-124) Total Protein 8.3 g/dL (6.4-8.2) Albumin 3.4 g/dL (3.4-5.0) Albumin/Globulin Ratio 0.7 (1.0-1.7) Urine Collection Type U cath Urine Color Yellow Urine Clarity Cloudy Urine pH 6.0 (<5.0-8.0) Urine Specific [place] 1.015 (1.000-1.030) Urine Protein 30 mg/dL (NEG-TRACE) Urine Glucose (UA) Negative mg/dL (NEG) Urine Ketones (Stick) Negative mg/dL (NEG) Urine Blood Negative (NEG) Urine Nitrite Negative (NEG) Urine Bilirubin Negative (NEG) Urine Urobilinogen Dipstick 0.2 mg/dL (0.2 mg/dL) Urine Leukocyte Esterase Large (NEG) Urine RBC 3-5 /HPF (0-2) Urine WBC Tntc /HPF (0-4) Urine Squamous Epithelial Cells Occ /LPF Urine Amorphous Sediment Present /HPF Urine Bacteria Moderate /HPF (0-FEW) Urine Mucus Slight /LPF Glucose (Fingerstick) 96 mg/dL (70-99) Test 09/23/20 16:42 09/23/20 21:00 09/24/20 07:28 09/24/20 11:05 Glucose (Fingerstick) 145 mg/dL (70-99) 204 mg/dL (70-99) 130 mg/dL (70-99) 117 mg/dL (70-99) Laboratory Tests Test 09/23/20 16:42 09/23/20 21:00 09/24/20 07:28 09/24/20 11:05 Glucose (Fingerstick) 145 mg/dL (70-99) 204 mg/dL (70-99) 130 mg/dL (70-99) 117 mg/dL (70-99) Medications Current Medications Sodium Chloride 500 ml @ 500 mls/hr 1X ONCE IV Last administered on 09/23/20at 02:18; Start 09/23/20 at 02:15; Stop 09/23/20 at 03:14; Status DC Ondansetron HCl (Zofran) 4 mg PRN Q8HRS PRN IV NAUSEA/VOMITING Last administered on 09/23/20at 03:27; Start 09/23/20 at 02:45; Stop 09/24/20 at 02:44; Status DC Sodium Chloride 1,000 ml @ 100 mls/hr Q10H IV Last administered on 09/24/20at 01:59; Start 09/23/20 at 02:45; Stop 09/24/20 at 02:44; Status DC Ceftriaxone Sodium (Rocephin) 1 gm 1X ONCE IVP Last administered on 09/23/20at 03:22; Start 09/23/20 at 03:00; Stop 09/23/20 at 03:01; Status DC Atorvastatin Calcium (Lipitor) 10 mg HS PO Last administered on 09/23/20at 20:06; Start 09/23/20 at 21:00 Clopidogrel Bisulfate (Plavix) 75 mg DAILY PO Last administered on 09/24/20 09:14; Start 09/23/20 at 12:00 Docusate Sodium (Colace) 100 mg BID PO Last administered on 09/23/20at 11:51; Start 09/23/20 at 12:00 Hydralazine HCl (Apresoline) 50 mg BID PO Last administered on 09/24/20 09:14; Start 09/23/20 at 12:00 Lactobacillus Rhamnosus (Culturelle) 1 cap BID PO Last administered on 09/24/20 09:14; Start 09/23/20 at 12:00 Nystatin (Nystop) 1 eros BID TP Last administered on 09/24/20 09:15; Start 09/23/20 at 12:00 Prednisone (Prednisone) 20 mg DAILY PO Last administered on 09/24/20at 09:14; Start 09/23/20 at 12:00 Carvedilol (Coreg) 25 mg BIDWMEALS PO Last administered on 09/24/20 09:14; Start 09/23/20 at 12:00 Insulin Human Lispro (HumaLOG) 10 units TIDWMEALS SQ Last administered on 09/24/20 09:22; Start 09/23/20 at 12:00 Multivitamins (Thera M Plus) 1 tab DAILY PO Last administered on 09/24/20 09:14; Start 09/23/20 at 12:00 Ceftriaxone Sodium (Rocephin) 1 gm Q24H IVP Last administered on 09/24/20at 11:28; Start 09/24/20 at 09:00 Sodium Chloride (Normal Saline Flush) 3 ml QSHIFT PRN IV AFTER MEDS AND BLOOD DRAWS; Start 09/23/20 at 15:45 Ondansetron HCl (Zofran) 4 mg PRN Q4HRS PRN IV NAUSEA/VOMITING; Start 09/23/20 at 15:45 Acetaminophen (Tylenol) 650 mg PRN Q4HRS PRN PO TEMP OVER 100.4F OR MILD PAIN; Start 09/23/20 at 15:45 Acetaminophen (Tylenol Supp) 650 mg PRN Q4HRS PRN SC TEMP OVER 100.4F OR MILD PAIN; Start 09/23/20 at 15:45 Al Hydroxide/Mg Hydroxide (Mylanta Plus Xs) 30 ml PRN DAILY PRN PO HEARTBURN / GAS; Start 09/23/20 at 15:45 Sodium Monofluorophosphate (Fleet Adult) 133 ml PRN DAILY PRN SC CONSTIPATION; Start 09/23/20 at 15:45 Docusate Sodium (Colace) 100 mg PRN BID PRN PO HARD STOOLS; Start 09/23/20 at 15:45 Albuterol Sulfate (Ventolin Neb Soln) 2.5 mg PRN Q4HRS PRN NEB SHORTNESS OF BREATH; Start 09/23/20 at 15:45 Guaifenesin (Robitussin) 200 mg PRN Q4HRS PRN PO COUGH; Start 09/23/20 at 15:45 Enoxaparin Sodium (Lovenox 40mg Syringe) 40 mg Q24H SQ Last administered on 09/23/20at 20:08; Start 09/23/20 at 21:00 Ascorbic Acid (Vitamin C) 500 mg DAILY PO ; Start 09/24/20 at 12:00 Active Scripts Active Prednisone 20 Mg Tablet 1 Tab PO DAILY 5 Days Culturelle (Lactobacillus Rhamnosus Gg) 1 Each Cap.sprink 1 Cap PO BID 30 Days Enoxaparin Sodium 40 Mg/0.4 Ml Disp.syrin 40 Mg SQ DAILY 7 Days Amox Tr-K Clv 875-125 Mg Tab (Amoxicillin/Potassium Clav) 1 Each Tablet 1 Tab PO BID 3 Days Tramadol HCl ER (Tramadol HCl) 100 Mg Cpbp.25.75 50 Mg PO PRN Q6HRS PRN 6 Days FENTANYL 50mcg/hr (Fentanyl) 1 Each Patch.td72 1 Patch TD Q72H 30 Days Reported Novolog (Insulin Aspart) 100 Unit/1 Ml Cartridge 10 Unit SQ TID One-Daily Multi-Vitamin (Multivitamin) 1 Each Tablet 1 Tab PO DAILY 30 Days Metformin Hcl 1,000 Mg Tablet 1,000 Mg PO BIDWMEALS Acetaminophen 325 Mg Tablet 2 Tab PO PRN Q6HRS PRN 24 Days Nystatin 15 Gm Powder 15 Gm TP BID Losartan Potassium 100 Mg Tablet 100 Mg PO DAILY Loperamide (Loperamide Hcl) 2 Mg Tablet 2 Mg PO PRN Q4-6HRS Furosemide 20 Mg Tablet 1 Tab PO DAILY Lantus Solostar (Insulin Glargine,Hum.rec.anlog) 100 Unit/1 Ml Insuln.pen 25 Unit SQ QHS Hydralazine Hcl 50 Mg Tablet 1 Tab PO BID Carvedilol 25 Mg Tablet 25 Mg PO BIDWMEALS Colace (Docusate Sodium) 100 Mg Capsule 1 Cap PO BID 30 Days Clopidogrel (Clopidogrel Bisulfate) 75 Mg Tablet 1 Tab PO DAILY Atorvastatin Calcium 10 Mg Tablet 10 Mg PO HS Vitals/I & O Vital Sign - Last 24 Hours 09/23/20 09/23/20 09/23/20 09/23/20 12:34 13:04 14:44 17:04 Temp 98.3 98.3 Pulse 72 82 88 Resp 15 18 20 B/P (MAP) 155/64 (94) 140/64 (89) 103/59 (74) Pulse Ox 96 96 100 O2 Delivery Room Air Room Air Room Air Room Air 09/23/20 09/23/20 09/23/20 09/23/20 19:00 19:30 20:08 23:00 Temp 99.0 98.4 99.0 98.4 Pulse 95 95 90 Resp 18 16 B/P (MAP) 94/44 (61) 94/44 104/52 (69) Pulse Ox 95 97 O2 Delivery Room Air 09/24/20 09/24/20 09/24/20 09/24/20 03:00 07:00 08:00 09:14 Temp 98.3 98.7 98.3 98.7 Pulse 92 81 81 Resp 16 16 B/P (MAP) 120/69 (86) 135/60 (85) 135/60 Pulse Ox 96 96 O2 Delivery Room Air Room Air 09/24/20 09/24/20 09:14 11:00 Temp 98.3 98.3 Pulse 81 102 Resp 16 B/P (MAP) 135/60 120/90 (100) Pulse Ox 95 O2 Delivery Room Air Justicifation of Admission Dx: Justifications for Admission: Justification of Admission Dx: N/A LILY LOPEZ MD Sep 24, 2020 12:20
[2020-09-24] MEDS: ASCORBIC ACID 500 MG TABLET PO SCH (12:45)
--- NOTE | 2020-09-24 14:03 | NUR ---
Wound/Ostomy Care Wound Type/Assessment: Pt seen per wound care consult. See wound assessment. Pt has stage II PU to the right buttock, stage III to coccyx, and stage II with DTI to the left heel. All wounds cleansed and assessed. Treatment Recommendations/Plan: Recommendations for calazime cream to coccyx and buttock, skin prep and foam to the left heel. Left heel medix and wedge for turning. Education provided: Pt educated on dressing changes and PU prevention. Offloading surface/device: Pt transferred to [address] at this time. dressings applied and patient turned to left side using wedge. A heel medix placed to left heel and a foam placed to right heel just for protection. Recommended Referrals/Tests: N/A Discharge Recommendations for dressings: Dressing change instructions left in room. No other wounds noted upon complete head to toe assessment. Bed lowered and call light in reach. Spoke with RN regarding POC. Wound care will follow on 10/01/20.
[2020-09-24 14:40] LABS: CALCIUM 9.7 mg/dL (8.5-10.1); CREATININE 3.5 mg/dL (0.6-1.0); GFR 15.6; POTASSIUM 4.6 mmol/L (3.5-5.1)
[2020-09-24 14:41] LABS: BASO % 0 % (0-3); EOS % 0 % (0-3); HEMATOCRIT 26.3 % (36.0-47.0); HEMOGLOBIN 8.8 g/dL (12.0-15.5); LYMPH % 16 % (24-48); MEAN CORPUSCULAR HEMOGLOBIN 28 pg (25-35); MEAN CORPUSCULAR HGB CONC 34 g/dL (31-37); MEAN CORPUSCULAR VOLUME 85 fL (79-100); MONO # 0.4 x10^3/uL (0.0-1.1); MONO % 5 % (0-9); NEUT % 78 % (31-73); PLATELET COUNT 258 x10^3/uL (140-400); RED CELL DISTRIBUTION WIDTH 13.6 % (11.5-14.5); WHITE BLOOD COUNT 6.4 x10^3/uL (4.0-11.0)
--- NOTE | 2020-09-24 14:59 | PDOC ---
PROGRESS NOTES Date of Service: DATE: 09/24/20 TIME: 14:58 Chief Complaint Chief Complaint VTE Prophylaxis Ordered VTE Prophylaxis Devices: Yes VTE Pharmacological Prophylaxi: Yes Assessment/Plan Assessment/Plan IMPRESSION: Patchy opacities medial right lung base, possibly atelectasis. ACUTE RENAL INJURY UTI - with confusion Pneumonia - likely COVID 19 related, RECOVERED Protein calorie malnutrition - moderate, Sepsis - H/o CVA with contractures - cont statin, ASA therapy DM2 - sliding scale insulin + basal bolus HLD - cont statin Anemia - likely of chronic disease CAD - stable, will cont meds H/o Gout - no pain complaints currently Sacral decubitus ulcer - stage I/II - local wound care uti PLAN ADMIT NEPHROLOGY CONSULT IV FLUID SUPPORT DVT PROPHYLAXIS IV ROCEPHIN 1 GM Q 24 HRS D/W RN Justifications for Admission Other Justification History of Present Illness History of Present Illness Identification/Chief Complaint Chief Complaint SEEN IN ER WITH ACUTE RENAL INJURY 70 year old female who presents via EMS at 1 AM from nursing facility. Patient had labs drawn at 10 AM the previous day however resulted around midnight. She had some episodes of vomiting earlier which prompted the lab draw and a KUB. Labs showed her BUN and creatinine were elevated. Patient does not have a history of renal failure. Patient is alert oriented x2 and history was obtained from EMS and report from nursing facility. They state that her p.o. intake has been at 50% recently. Per chart review she was hospitalized with COVID-19 in April. 70yo F SNF resident w/ PMHx CVA with contractures, DM2, HLD, Anemia, CAD, Gout who presents to ED via [facility] from SNF for worsening mental status POOR INTAKE She was recently diagnosed with COVID19 on 04/18/2020 and was doing well TODAY Past Medical History Cardiovascular: HTN, Hyperlipidemia CENTRAL NERVOUS SYSTEM: CVA Rheumatologic: Gout Endocrine: Diabetes Past Surgical History Past Surgical History: No pertinent history Family History Family History: Hypertension, Family History Unknown Social History Smoke: No ALCOHOL: none Drugs: None Current Problem List Problem List Problems Medical Problems: (1) Acute renal insufficiency Status: Acute (2) UTI (urinary tract infection) Status: Acute Vitals Vitals Vital Signs Date Time Temp Pulse Resp B/P (MAP) Pulse Ox O2 Delivery O2 Flow Rate FiO2 09/24/20 11:00 98.3 102 16 120/90 (100) 95 Room Air 98.3 Physical Exam Physical Exam Physical Exam General: Alert, Oriented X3, Cooperative, No acute distress Lungs: Clear to auscultation, Normal air movement Heart: RRR Breasts: Not examined Abdomen: Normal bowel sounds, Soft PELVIC: Examination not indicated Extremities: No cyanosis Neuro: Normal speech, Sensation intact, Cranial nerves 3-12 NL Psych/Mental Status: Mental status NL, Mood NL General: Cooperative, No acute distress, severe distress (C) Heart: Regular rate Abdomen: Normal bowel sounds, Soft Extremities: No cyanosis Skin: No rashes, No breakdown Labs LABS RECD: 09/23/[address]: VILMA DOSHI MD SOURCE: STRA CATH ENTR: 09/23/[address]: SYDNEY MEYER MD SPDESC: LILY FONTANA MD ORDERED: URINE CULTURE Procedure Result URINE CULTURE Preliminary Preliminary GREATER THAN 100,000 CFU/ML GRAM NEGATIVE RODS on 09/24/20 at 0720 FINAL ID= [PROTEUS [facility]IR[facility]IS] Testing Performed by: [address] [address] For Inquires, the Physician may contact the Microbiology department at [phone] [facility] Unless otherwise specified, Testing Performed by: [facility] [address] [place] [address] For Inquires, the Physician may contact the Microbiology department at [phone] Laboratory Tests Test 09/23/20 16:42 09/23/20 21:00 09/24/20 07:28 09/24/20 11:05 Glucose (Fingerstick) 145 mg/dL (70-99) 204 mg/dL (70-99) 130 mg/dL (70-99) 117 mg/dL (70-99) Test 09/24/20 14:22 White Blood Count 6.4 x10^3/uL (4.0-11.0) Red Blood Count 3.10 x10^6/uL (3.50-5.40) Hemoglobin 8.8 g/dL (12.0-15.5) Hematocrit 26.3 % (36.0-47.0) Mean Corpuscular Volume 85 fL (79-100) Mean Corpuscular Hemoglobin 28 pg (25-35) Mean Corpuscular Hemoglobin Concent 34 g/dL (31-37) Red Cell Distribution Width 13.6 % (11.5-14.5) Platelet Count 258 x10^3/uL (140-400) Neutrophils (%) (Auto) 78 % (31-73) Lymphocytes (%) (Auto) 16 % (24-48) Monocytes (%) (Auto) 5 % (0-9) Eosinophils (%) (Auto) 0 % (0-3) Basophils (%) (Auto) 0 % (0-3) Neutrophils # (Auto) 5.0 x10^3/uL (1.8-7.7) Lymphocytes # (Auto) 1.0 x10^3/uL (1.0-4.8) Monocytes # (Auto) 0.4 x10^3/uL (0.0-1.1) Eosinophils # (Auto) 0.0 x10^3/uL (0.0-0.7) Basophils # (Auto) 0.0 x10^3/uL (0.0-0.2) Sodium Level 143 mmol/L (136-145) Potassium Level 4.6 mmol/L (3.5-5.1) Chloride Level 112 mmol/L (98-107) Carbon Dioxide Level 16 mmol/L (21-32) Anion Gap 15 (6-14) Blood Urea Nitrogen 119 mg/dL (7-20) Creatinine 3.5 mg/dL (0.6-1.0) Estimated GFR (Cockcroft-Gault) 15.6 Glucose Level 154 mg/dL (70-99) Calcium Level 9.7 mg/dL (8.5-10.1) Assessment and Plan Assessmemt and Plan Problems Medical Problems: (1) Acute renal insufficiency Status: Acute (2) UTI (urinary tract infection) Status: Acute Comment Review of Relevant I have reviewed the following items daniel (where applicable) has been applied. Labs Laboratory Tests Test 09/23/20 01:30 09/23/20 02:24 09/23/20 06:47 09/23/20 10:01 White Blood Count 8.9 x10^3/uL (4.0-11.0) Red Blood Count 3.36 x10^6/uL (3.50-5.40) Hemoglobin 9.7 g/dL (12.0-15.5) Hematocrit 28.4 % (36.0-47.0) Mean Corpuscular Volume 85 fL (79-100) Mean Corpuscular Hemoglobin 29 pg (25-35) Mean Corpuscular Hemoglobin Concent 34 g/dL (31-37) Red Cell Distribution Width 13.7 % (11.5-14.5) Platelet Count 284 x10^3/uL (140-400) Neutrophils (%) (Auto) 72 % (31-73) Lymphocytes (%) (Auto) 17 % (24-48) Monocytes (%) (Auto) 7 % (0-9) Eosinophils (%) (Auto) 4 % (0-3) Basophils (%) (Auto) 0 % (0-3) Neutrophils # (Auto) 6.4 x10^3/uL (1.8-7.7) Lymphocytes # (Auto) 1.5 x10^3/uL (1.0-4.8) Monocytes # (Auto) 0.6 x10^3/uL (0.0-1.1) Eosinophils # (Auto) 0.4 x10^3/uL (0.0-0.7) Basophils # (Auto) 0.0 x10^3/uL (0.0-0.2) Sodium Level 143 mmol/L (136-145) Potassium Level 5.7 mmol/L (3.5-5.1) Chloride Level 109 mmol/L (98-107) Carbon Dioxide Level 17 mmol/L (21-32) Anion Gap 17 (6-14) Blood Urea Nitrogen 150 mg/dL (7-20) Creatinine 3.7 mg/dL (0.6-1.0) Estimated GFR (Cockcroft-Gault) 14.6 BUN/Creatinine Ratio 41 (6-20) Glucose Level 107 mg/dL (70-99) Lactic Acid Level 1.8 mmol/L (0.4-2.0) Calcium Level 9.9 mg/dL (8.5-10.1) Phosphorus Level 5.7 mg/dL (2.6-4.7) Magnesium Level 2.0 mg/dL (1.8-2.4) Total Bilirubin 0.2 mg/dL (0.2-1.0) Aspartate Amino Transf (AST/SGOT) 12 U/L (15-37) Alanine Aminotransferase (ALT/SGPT) 20 U/L (14-59) Alkaline Phosphatase 63 U/L (46-116) Troponin I Quantitative < 0.017 ng/mL (0.000-0.055) < 0.017 ng/mL (0.000-0.055) TX-Xly-J-Type Natriuretic Peptide 542 pg/mL (0-124) Total Protein 8.3 g/dL (6.4-8.2) Albumin 3.4 g/dL (3.4-5.0) Albumin/Globulin Ratio 0.7 (1.0-1.7) Urine Collection Type U cath Urine Color Yellow Urine Clarity Cloudy Urine pH 6.0 (<5.0-8.0) Urine Specific [place] 1.015 (1.000-1.030) Urine Protein 30 mg/dL (NEG-TRACE) Urine Glucose (UA) Negative mg/dL (NEG) Urine Ketones (Stick) Negative mg/dL (NEG) Urine Blood Negative (NEG) Urine Nitrite Negative (NEG) Urine Bilirubin Negative (NEG) Urine Urobilinogen Dipstick 0.2 mg/dL (0.2 mg/dL) Urine Leukocyte Esterase Large (NEG) Urine RBC 3-5 /HPF (0-2) Urine WBC Tntc /HPF (0-4) Urine Squamous Epithelial Cells Occ /LPF Urine Amorphous Sediment Present /HPF Urine Bacteria Moderate /HPF (0-FEW) Urine Mucus Slight /LPF Glucose (Fingerstick) 96 mg/dL (70-99) Test 09/23/20 16:42 09/23/20 21:00 09/24/20 07:28 09/24/20 11:05 Glucose (Fingerstick) 145 mg/dL (70-99) 204 mg/dL (70-99) 130 mg/dL (70-99) 117 mg/dL (70-99) Test 09/24/20 14:22 White Blood Count 6.4 x10^3/uL (4.0-11.0) Red Blood Count 3.10 x10^6/uL (3.50-5.40) Hemoglobin 8.8 g/dL (12.0-15.5) Hematocrit 26.3 % (36.0-47.0) Mean Corpuscular Volume 85 fL (79-100) Mean Corpuscular Hemoglobin 28 pg (25-35) Mean Corpuscular Hemoglobin Concent 34 g/dL (31-37) Red Cell Distribution Width 13.6 % (11.5-14.5) Platelet Count 258 x10^3/uL (140-400) Neutrophils (%) (Auto) 78 % (31-73) Lymphocytes (%) (Auto) 16 % (24-48) Monocytes (%) (Auto) 5 % (0-9) Eosinophils (%) (Auto) 0 % (0-3) Basophils (%) (Auto) 0 % (0-3) Neutrophils # (Auto) 5.0 x10^3/uL (1.8-7.7) Lymphocytes # (Auto) 1.0 x10^3/uL (1.0-4.8) Monocytes # (Auto) 0.4 x10^3/uL (0.0-1.1) Eosinophils # (Auto) 0.0 x10^3/uL (0.0-0.7) Basophils # (Auto) 0.0 x10^3/uL (0.0-0.2) Sodium Level 143 mmol/L (136-145) Potassium Level 4.6 mmol/L (3.5-5.1) Chloride Level 112 mmol/L (98-107) Carbon Dioxide Level 16 mmol/L (21-32) Anion Gap 15 (6-14) Blood Urea Nitrogen 119 mg/dL (7-20) Creatinine 3.5 mg/dL (0.6-1.0) Estimated GFR (Cockcroft-Gault) 15.6 Glucose Level 154 mg/dL (70-99) Calcium Level 9.7 mg/dL (8.5-10.1) Laboratory Tests Test 09/23/20 16:42 09/23/20 21:00 09/24/20 07:28 09/24/20 11:05 Glucose (Fingerstick) 145 mg/dL (70-99) 204 mg/dL (70-99) 130 mg/dL (70-99) 117 mg/dL (70-99) Test 09/24/20 14:22 White Blood Count 6.4 x10^3/uL (4.0-11.0) Red Blood Count 3.10 x10^6/uL (3.50-5.40) Hemoglobin 8.8 g/dL (12.0-15.5) Hematocrit 26.3 % (36.0-47.0) Mean Corpuscular Volume 85 fL (79-100) Mean Corpuscular Hemoglobin 28 pg (25-35) Mean Corpuscular Hemoglobin Concent 34 g/dL (31-37) Red Cell Distribution Width 13.6 % (11.5-14.5) Platelet Count 258 x10^3/uL (140-400) Neutrophils (%) (Auto) 78 % (31-73) Lymphocytes (%) (Auto) 16 % (24-48) Monocytes (%) (Auto) 5 % (0-9) Eosinophils (%) (Auto) 0 % (0-3) Basophils (%) (Auto) 0 % (0-3) Neutrophils # (Auto) 5.0 x10^3/uL (1.8-7.7) Lymphocytes # (Auto) 1.0 x10^3/uL (1.0-4.8) Monocytes # (Auto) 0.4 x10^3/uL (0.0-1.1) Eosinophils # (Auto) 0.0 x10^3/uL (0.0-0.7) Basophils # (Auto) 0.0 x10^3/uL (0.0-0.2) Sodium Level 143 mmol/L (136-145) Potassium Level 4.6 mmol/L (3.5-5.1) Chloride Level 112 mmol/L (98-107) Carbon Dioxide Level 16 mmol/L (21-32) Anion Gap 15 (6-14) Blood Urea Nitrogen 119 mg/dL (7-20) Creatinine 3.5 mg/dL (0.6-1.0) Estimated GFR (Cockcroft-Gault) 15.6 Glucose Level 154 mg/dL (70-99) Calcium Level 9.7 mg/dL (8.5-10.1) Microbiology 09/23/20 Urine Culture - Preliminary, Resulted Medications Current Medications Sodium Chloride 500 ml @ 500 mls/hr 1X ONCE IV Last administered on 09/23/20at 02:18; Start 09/23/20 at 02:15; Stop 09/23/20 at 03:14; Status DC Ondansetron HCl (Zofran) 4 mg PRN Q8HRS PRN IV NAUSEA/VOMITING Last administered on 09/23/20at 03:27; Start 09/23/20 at 02:45; Stop 09/24/20 at 02:44; Status DC Sodium Chloride 1,000 ml @ 100 mls/hr Q10H IV Last administered on 09/24/20at 01:59; Start 09/23/20 at 02:45; Stop 09/24/20 at 02:44; Status DC Ceftriaxone Sodium (Rocephin) 1 gm 1X ONCE IVP Last administered on 09/23/20at 03:22; Start 09/23/20 at 03:00; Stop 09/23/20 at 03:01; Status DC Atorvastatin Calcium (Lipitor) 10 mg HS PO Last administered on 09/23/20at 20:06; Start 09/23/20 at 21:00 Clopidogrel Bisulfate (Plavix) 75 mg DAILY PO Last administered on 09/24/20 09:14; Start 09/23/20 at 12:00 Docusate Sodium (Colace) 100 mg BID PO Last administered on 09/23/20at 11:51; Start 09/23/20 at 12:00 Hydralazine HCl (Apresoline) 50 mg BID PO Last administered on 09/24/20 09:14; Start 09/23/20 at 12:00 Lactobacillus Rhamnosus (Culturelle) 1 cap BID PO Last administered on 09/24/20 09:14; Start 09/23/20 at 12:00 Nystatin (Nystop) 1 eros BID TP Last administered on 09/24/20 09:15; Start 09/23/20 at 12:00 Prednisone (Prednisone) 20 mg DAILY PO Last administered on 09/24/20 09:14; Start 09/23/20 at 12:00 Carvedilol (Coreg) 25 mg BIDWMEALS PO Last administered on 09/24/20 09:14; Start 09/23/20 at 12:00 Insulin Human Lispro (HumaLOG) 10 units TIDWMEALS SQ Last administered on 09/24/20 12:52; Start 09/23/20 at 12:00 Multivitamins (Thera M Plus) 1 tab DAILY PO Last administered on 09/24/20 09:14; Start 09/23/20 at 12:00 Ceftriaxone Sodium (Rocephin) 1 gm Q24H IVP Last administered on 09/24/20at 11:28; Start 09/24/20 at 09:00 Sodium Chloride (Normal Saline Flush) 3 ml QSHIFT PRN IV AFTER MEDS AND BLOOD DRAWS; Start 09/23/20 at 15:45 Ondansetron HCl (Zofran) 4 mg PRN Q4HRS PRN IV NAUSEA/VOMITING; Start 09/23/20 at 15:45 Acetaminophen (Tylenol) 650 mg PRN Q4HRS PRN PO TEMP OVER 100.4F OR MILD PAIN; Start 09/23/20 at 15:45 Acetaminophen (Tylenol Supp) 650 mg PRN Q4HRS PRN IA TEMP OVER 100.4F OR MILD PAIN; Start 09/23/20 at 15:45 Al Hydroxide/Mg Hydroxide (Mylanta Plus Xs) 30 ml PRN DAILY PRN PO HEARTBURN / GAS; Start 09/23/20 at 15:45 Sodium Monofluorophosphate (Fleet Adult) 133 ml PRN DAILY PRN IA CONSTIPATION; Start 09/23/20 at 15:45 Docusate Sodium (Colace) 100 mg PRN BID PRN PO HARD STOOLS; Start 09/23/20 at 15:45 Albuterol Sulfate (Ventolin Neb Soln) 2.5 mg PRN Q4HRS PRN NEB SHORTNESS OF BREATH; Start 09/23/20 at 15:45 Guaifenesin (Robitussin) 200 mg PRN Q4HRS PRN PO COUGH; Start 09/23/20 at 15:45 Enoxaparin Sodium (Lovenox 40mg Syringe) 40 mg Q24H SQ Last administered on 09/23/20at 20:08; Start 09/23/20 at 21:00 Ascorbic Acid (Vitamin C) 500 mg DAILY PO Last administered on 09/24/20at 12:45; Start 09/24/20 at 12:00 Active Scripts Active Prednisone 20 Mg Tablet 1 Tab PO DAILY 5 Days Culturelle (Lactobacillus Rhamnosus Gg) 1 Each Cap.sprink 1 Cap PO BID 30 Days Enoxaparin Sodium 40 Mg/0.4 Ml Disp.syrin 40 Mg SQ DAILY 7 Days Amox Tr-K Clv 875-125 Mg Tab (Amoxicillin/Potassium Clav) 1 Each Tablet 1 Tab PO BID 3 Days Tramadol HCl ER (Tramadol HCl) 100 Mg Cpbp.25.75 50 Mg PO PRN Q6HRS PRN 6 Days FENTANYL 50mcg/hr (Fentanyl) 1 Each Patch.td72 1 Patch TD Q72H 30 Days Reported Novolog (Insulin Aspart) 100 Unit/1 Ml Cartridge 10 Unit SQ TID One-Daily Multi-Vitamin (Multivitamin) 1 Each Tablet 1 Tab PO DAILY 30 Days Metformin Hcl 1,000 Mg Tablet 1,000 Mg PO BIDWMEALS Acetaminophen 325 Mg Tablet 2 Tab PO PRN Q6HRS PRN 24 Days Nystatin 15 Gm Powder 15 Gm TP BID Losartan Potassium 100 Mg Tablet 100 Mg PO DAILY Loperamide (Loperamide Hcl) 2 Mg Tablet 2 Mg PO PRN Q4-6HRS Furosemide 20 Mg Tablet 1 Tab PO DAILY Lantus Solostar (Insulin Glargine,Hum.rec.anlog) 100 Unit/1 Ml Insuln.pen 25 Unit SQ QHS Hydralazine Hcl 50 Mg Tablet 1 Tab PO BID Carvedilol 25 Mg Tablet 25 Mg PO BIDWMEALS Colace (Docusate Sodium) 100 Mg Capsule 1 Cap PO BID 30 Days Clopidogrel (Clopidogrel Bisulfate) 75 Mg Tablet 1 Tab PO DAILY Atorvastatin Calcium 10 Mg Tablet 10 Mg PO HS Vitals/I & O Vital Sign - Last 24 Hours 09/23/20 09/23/20 09/23/20 09/23/20 17:04 19:00 19:30 20:08 Temp 99.0 99.0 Pulse 95 95 Resp 18 B/P (MAP) 94/44 (61) 94/44 Pulse Ox 95 O2 Delivery Room Air Room Air 09/23/20 09/24/20 09/24/20 09/24/20 23:00 03:00 07:00 08:00 Temp 98.4 98.3 98.7 98.4 98.3 98.7 Pulse 90 92 81 Resp 16 16 16 B/P (MAP) 104/52 (69) 120/69 (86) 135/60 (85) Pulse Ox 97 96 96 O2 Delivery Room Air Room Air 09/24/20 09/24/20 09/24/20 09:14 09:14 11:00 Temp 98.3 98.3 Pulse 81 81 102 Resp 16 B/P (MAP) 135/60 135/60 120/90 (100) Pulse Ox 95 O2 Delivery Room Air Justicifation of Admission Dx: Justifications for Admission: Justification of Admission Dx: N/A LILY LOPEZ MD Sep 24, 2020 14:59
[2020-09-24 15:00] VITALS: BP 125/86
--- NOTE | 2020-09-24 17:44 | PDOC ---
Renal-Progress Notes Subjective Notes Notes CONFUSED History of Present Illness Hx of present illness STABLE Vitals Vitals Vital Signs Date Time Temp Pulse Resp B/P (MAP) Pulse Ox O2 Delivery O2 Flow Rate FiO2 09/24/20 15:00 98.8 70 18 125/86 (99) 95 Room Air 98.8 Weight Weight [ ] I.O. Intake and Output Intake and Output 09/24/20 07:00 # Voids 5 # Bowel Movements 3 Labs Labs Laboratory Tests Test 09/23/20 21:00 09/24/20 07:28 09/24/20 11:05 09/24/20 14:22 Glucose (Fingerstick) 204 mg/dL (70-99) 130 mg/dL (70-99) 117 mg/dL (70-99) White Blood Count 6.4 x10^3/uL (4.0-11.0) Red Blood Count 3.10 x10^6/uL (3.50-5.40) Hemoglobin 8.8 g/dL (12.0-15.5) Hematocrit 26.3 % (36.0-47.0) Mean Corpuscular Volume 85 fL (79-100) Mean Corpuscular Hemoglobin 28 pg (25-35) Mean Corpuscular Hemoglobin Concent 34 g/dL (31-37) Red Cell Distribution Width 13.6 % (11.5-14.5) Platelet Count 258 x10^3/uL (140-400) Neutrophils (%) (Auto) 78 % (31-73) Lymphocytes (%) (Auto) 16 % (24-48) Monocytes (%) (Auto) 5 % (0-9) Eosinophils (%) (Auto) 0 % (0-3) Basophils (%) (Auto) 0 % (0-3) Neutrophils # (Auto) 5.0 x10^3/uL (1.8-7.7) Lymphocytes # (Auto) 1.0 x10^3/uL (1.0-4.8) Monocytes # (Auto) 0.4 x10^3/uL (0.0-1.1) Eosinophils # (Auto) 0.0 x10^3/uL (0.0-0.7) Basophils # (Auto) 0.0 x10^3/uL (0.0-0.2) Sodium Level 143 mmol/L (136-145) Potassium Level 4.6 mmol/L (3.5-5.1) Chloride Level 112 mmol/L (98-107) Carbon Dioxide Level 16 mmol/L (21-32) Anion Gap 15 (6-14) Blood Urea Nitrogen 119 mg/dL (7-20) Creatinine 3.5 mg/dL (0.6-1.0) Estimated GFR (Cockcroft-Gault) 15.6 Glucose Level 154 mg/dL (70-99) Calcium Level 9.7 mg/dL (8.5-10.1) Micro Micro Microbiology 09/23/20 Urine Culture - Preliminary, Resulted Review of Systems Constitutional: yes: other (CONFUSED) Physical Exam General Appearance: no apparent distress Skin: warm Respiratory: bilateral CTA Heart: S1S2 Abdomen: soft, bowel sounds present Genitourinary: bladder flat Extremities: pulses present, atrophy Neurology: alert, confused Assessment Assessment Assessment/Plan IMP JEVON WITH CR OF 3.7 ON ADMIT AND NOW 3.5 CKD STAGE 3B WITH CR OF 1.8 DEHYDRATION URINARY TRACT INFECTION MET ENCEPHALOPATHY PNEUMONIA MALNUTRITION SACRAL DECUBITI HX CVA WITH CONTRACTURES ANEMIA DM II PLAN HOLD ARB HOLD DIURETICS HYDRATION ANTIBIOTICS WILL FOLLOW LEXIE HUMPHREY MD Sep 24, 2020 17:44
[2020-09-24 19:00] VITALS: BP 135/65
[2020-09-24] MEDS: ATORVASTATIN CALCIUM 10 MG TABLET. PO SCH (22:54)
[2020-09-24] MEDS: ENOXAPARIN 40 MG/0.4 ML SYRINGE. SQ SCH (22:54)
[2020-09-24 23:00] VITALS: BP 127/62
[2020-09-25] VITALS (7 sets, daily range): BP systolic 106–143; BP diastolic 40–81
[2020-09-25] MEDS: INSULIN LISPRO 300 UNITS/3 ML VIAL. SQ SCH ×3 (08:00→18:52)
--- NOTE | 2020-09-25 08:36 | PDOC ---
PROGRESS NOTES Date of Service: DATE: 09/25/20 TIME: 08:35 Chief Complaint Chief Complaint VTE Prophylaxis Ordered VTE Prophylaxis Devices: Yes VTE Pharmacological Prophylaxi: Yes Assessment/Plan Assessment/Plan IMPRESSION: Patchy opacities medial right lung base, possibly atelectasis. ACUTE RENAL INJURY UTI - with confusion Pneumonia - likely COVID 19 related, RECOVERED Protein calorie malnutrition - moderate, Sepsis - H/o CVA with contractures - cont statin, ASA therapy DM2 - sliding scale insulin + basal bolus HLD - cont statin Anemia - likely of chronic disease CAD - stable, will cont meds H/o Gout - no pain complaints currently Sacral decubitus ulcer - stage I/II - local wound care uti PLAN ADMIT NEPHROLOGY CONSULT IV FLUID SUPPORT DVT PROPHYLAXIS IV ROCEPHIN 1 GM Q 24 HRS D/W RN Justifications for Admission Other Justification History of Present Illness History of Present Illness Identification/Chief Complaint Chief Complaint SEEN IN ER WITH ACUTE RENAL INJURY 70 year old female who presents via EMS at 1 AM from nursing facility. Patient had labs drawn at 10 AM the previous day however resulted around midnight. She had some episodes of vomiting earlier which prompted the lab draw and a KUB. Labs showed her BUN and creatinine were elevated. Patient does not have a history of renal failure. Patient is alert oriented x2 and history was obtained from EMS and report from nursing facility. They state that her p.o. intake has been at 50% recently. Per chart review she was hospitalized with COVID-19 in April. 70yo F SNF resident w/ PMHx CVA with contractures, DM2, HLD, Anemia, CAD, Gout who presents to ED via [facility] from SNF for worsening mental status POOR INTAKE She was recently diagnosed with COVID19 on 04/18/2020 and was doing well TODAY Past Medical History Cardiovascular: HTN, Hyperlipidemia CENTRAL NERVOUS SYSTEM: CVA Rheumatologic: Gout Endocrine: Diabetes Past Surgical History Past Surgical History: No pertinent history Family History Family History: Hypertension, Family History Unknown Social History Smoke: No ALCOHOL: none Drugs: None Current Problem List Problem List Problems Medical Problems: (1) Acute renal insufficiency Status: Acute (2) UTI (urinary tract infection) Status: Acute Vitals Vitals Vital Signs Date Time Temp Pulse Resp B/P (MAP) Pulse Ox O2 Delivery O2 Flow Rate FiO2 09/25/20 03:00 98.1 73 21 106/72 (83) 96 Room Air 98.1 Physical Exam Physical Exam Physical Exam General: Alert, Oriented X3, Cooperative, No acute distress Lungs: Clear to auscultation, Normal air movement Heart: RRR Breasts: Not examined Abdomen: Normal bowel sounds, Soft PELVIC: Examination not indicated Extremities: No cyanosis Neuro: Normal speech, Sensation intact, Cranial nerves 3-12 NL Psych/Mental Status: Mental status NL, Mood NL General: Cooperative, No acute distress, severe distress (C) Heart: Regular rate Abdomen: Normal bowel sounds, Soft Extremities: No cyanosis Skin: No rashes, No breakdown Labs LABS Laboratory Tests Test 09/24/20 11:05 09/24/20 14:22 09/24/20 17:22 09/24/20 20:28 Glucose (Fingerstick) 117 mg/dL (70-99) 103 mg/dL (70-99) 159 mg/dL (70-99) White Blood Count 6.4 x10^3/uL (4.0-11.0) Red Blood Count 3.10 x10^6/uL (3.50-5.40) Hemoglobin 8.8 g/dL (12.0-15.5) Hematocrit 26.3 % (36.0-47.0) Mean Corpuscular Volume 85 fL (79-100) Mean Corpuscular Hemoglobin 28 pg (25-35) Mean Corpuscular Hemoglobin Concent 34 g/dL (31-37) Red Cell Distribution Width 13.6 % (11.5-14.5) Platelet Count 258 x10^3/uL (140-400) Neutrophils (%) (Auto) 78 % (31-73) Lymphocytes (%) (Auto) 16 % (24-48) Monocytes (%) (Auto) 5 % (0-9) Eosinophils (%) (Auto) 0 % (0-3) Basophils (%) (Auto) 0 % (0-3) Neutrophils # (Auto) 5.0 x10^3/uL (1.8-7.7) Lymphocytes # (Auto) 1.0 x10^3/uL (1.0-4.8) Monocytes # (Auto) 0.4 x10^3/uL (0.0-1.1) Eosinophils # (Auto) 0.0 x10^3/uL (0.0-0.7) Basophils # (Auto) 0.0 x10^3/uL (0.0-0.2) Sodium Level 143 mmol/L (136-145) Potassium Level 4.6 mmol/L (3.5-5.1) Chloride Level 112 mmol/L (98-107) Carbon Dioxide Level 16 mmol/L (21-32) Anion Gap 15 (6-14) Blood Urea Nitrogen 119 mg/dL (7-20) Creatinine 3.5 mg/dL (0.6-1.0) Estimated GFR (Cockcroft-Gault) 15.6 Glucose Level 154 mg/dL (70-99) Calcium Level 9.7 mg/dL (8.5-10.1) Test 09/25/20 08:28 Glucose (Fingerstick) 99 mg/dL (70-99) Assessment and Plan Assessmemt and Plan Problems Medical Problems: (1) Acute renal insufficiency Status: Acute (2) UTI (urinary tract infection) Status: Acute Comment Review of Relevant I have reviewed the following items daniel (where applicable) has been applied. Labs Laboratory Tests Test 09/23/20 10:01 09/23/20 16:42 09/23/20 21:00 09/24/20 07:28 Glucose (Fingerstick) 96 mg/dL (70-99) 145 mg/dL (70-99) 204 mg/dL (70-99) 130 mg/dL (70-99) Test 09/24/20 11:05 09/24/20 14:22 09/24/20 17:22 09/24/20 20:28 Glucose (Fingerstick) 117 mg/dL (70-99) 103 mg/dL (70-99) 159 mg/dL (70-99) White Blood Count 6.4 x10^3/uL (4.0-11.0) Red Blood Count 3.10 x10^6/uL (3.50-5.40) Hemoglobin 8.8 g/dL (12.0-15.5) Hematocrit 26.3 % (36.0-47.0) Mean Corpuscular Volume 85 fL (79-100) Mean Corpuscular Hemoglobin 28 pg (25-35) Mean Corpuscular Hemoglobin Concent 34 g/dL (31-37) Red Cell Distribution Width 13.6 % (11.5-14.5) Platelet Count 258 x10^3/uL (140-400) Neutrophils (%) (Auto) 78 % (31-73) Lymphocytes (%) (Auto) 16 % (24-48) Monocytes (%) (Auto) 5 % (0-9) Eosinophils (%) (Auto) 0 % (0-3) Basophils (%) (Auto) 0 % (0-3) Neutrophils # (Auto) 5.0 x10^3/uL (1.8-7.7) Lymphocytes # (Auto) 1.0 x10^3/uL (1.0-4.8) Monocytes # (Auto) 0.4 x10^3/uL (0.0-1.1) Eosinophils # (Auto) 0.0 x10^3/uL (0.0-0.7) Basophils # (Auto) 0.0 x10^3/uL (0.0-0.2) Sodium Level 143 mmol/L (136-145) Potassium Level 4.6 mmol/L (3.5-5.1) Chloride Level 112 mmol/L (98-107) Carbon Dioxide Level 16 mmol/L (21-32) Anion Gap 15 (6-14) Blood Urea Nitrogen 119 mg/dL (7-20) Creatinine 3.5 mg/dL (0.6-1.0) Estimated GFR (Cockcroft-Gault) 15.6 Glucose Level 154 mg/dL (70-99) Calcium Level 9.7 mg/dL (8.5-10.1) Test 09/25/20 08:28 Glucose (Fingerstick) 99 mg/dL (70-99) Laboratory Tests Test 09/24/20 11:05 09/24/20 14:22 09/24/20 17:22 09/24/20 20:28 Glucose (Fingerstick) 117 mg/dL (70-99) 103 mg/dL (70-99) 159 mg/dL (70-99) White Blood Count 6.4 x10^3/uL (4.0-11.0) Red Blood Count 3.10 x10^6/uL (3.50-5.40) Hemoglobin 8.8 g/dL (12.0-15.5) Hematocrit 26.3 % (36.0-47.0) Mean Corpuscular Volume 85 fL (79-100) Mean Corpuscular Hemoglobin 28 pg (25-35) Mean Corpuscular Hemoglobin Concent 34 g/dL (31-37) Red Cell Distribution Width 13.6 % (11.5-14.5) Platelet Count 258 x10^3/uL (140-400) Neutrophils (%) (Auto) 78 % (31-73) Lymphocytes (%) (Auto) 16 % (24-48) Monocytes (%) (Auto) 5 % (0-9) Eosinophils (%) (Auto) 0 % (0-3) Basophils (%) (Auto) 0 % (0-3) Neutrophils # (Auto) 5.0 x10^3/uL (1.8-7.7) Lymphocytes # (Auto) 1.0 x10^3/uL (1.0-4.8) Monocytes # (Auto) 0.4 x10^3/uL (0.0-1.1) Eosinophils # (Auto) 0.0 x10^3/uL (0.0-0.7) Basophils # (Auto) 0.0 x10^3/uL (0.0-0.2) Sodium Level 143 mmol/L (136-145) Potassium Level 4.6 mmol/L (3.5-5.1) Chloride Level 112 mmol/L (98-107) Carbon Dioxide Level 16 mmol/L (21-32) Anion Gap 15 (6-14) Blood Urea Nitrogen 119 mg/dL (7-20) Creatinine 3.5 mg/dL (0.6-1.0) Estimated GFR (Cockcroft-Gault) 15.6 Glucose Level 154 mg/dL (70-99) Calcium Level 9.7 mg/dL (8.5-10.1) Test 09/25/20 08:28 Glucose (Fingerstick) 99 mg/dL (70-99) Microbiology 09/23/20 Urine Culture - Final, Complete 09/23/20 Antimicrobic Susceptibility - Final, Complete Medications Current Medications Sodium Chloride 500 ml @ 500 mls/hr 1X ONCE IV Last administered on 09/23/20at 02:18; Start 09/23/20 at 02:15; Stop 09/23/20 at 03:14; Status DC Ondansetron HCl (Zofran) 4 mg PRN Q8HRS PRN IV NAUSEA/VOMITING Last adminis tered on 09/23/20at 03:27; Start 09/23/20 at 02:45; Stop 09/24/20 at 02:44; Status DC Sodium Chloride 1,000 ml @ 100 mls/hr Q10H IV Last administered on 09/24/20at 01:59; Start 09/23/20 at 02:45; Stop 09/24/20 at 02:44; Status DC Ceftriaxone Sodium (Rocephin) 1 gm 1X ONCE IVP Last administered on 09/23/20at 03:22; Start 09/23/20 at 03:00; Stop 09/23/20 at 03:01; Status DC Atorvastatin Calcium (Lipitor) 10 mg HS PO Last administered on 09/24/20at 22:54; Start 09/23/20 at 21:00 Clopidogrel Bisulfate (Plavix) 75 mg DAILY PO Last administered on 09/24/20at 09:14; Start 09/23/20 at 12:00 Docusate Sodium (Colace) 100 mg BID PO Last administered on 09/23/20at 11:51; Start 09/23/20 at 12:00 Hydralazine HCl (Apresoline) 50 mg BID PO Last administered on 09/24/20at 22:54; Start 09/23/20 at 12:00 Lactobacillus Rhamnosus (Culturelle) 1 cap BID PO Last administered on 09/24/20at 22:54; Start 09/23/20 at 12:00 Nystatin (Nystop) 1 eros BID TP Last administered on 09/24/20 09:15; Start 09/23/20 at 12:00 Prednisone (Prednisone) 20 mg DAILY PO Last administered on 09/24/20 09:14; Start 09/23/20 at 12:00 Carvedilol (Coreg) 25 mg BIDWMEALS PO Last administered on 09/24/20at 18:15; Start 09/23/20 at 12:00 Insulin Human Lispro (HumaLOG) 10 units TIDWMEALS SQ Last administered on 09/24/20at 12:52; Start 09/23/20 at 12:00 Multivitamins (Thera M Plus) 1 tab DAILY PO Last administered on 09/24/20at 09:14; Start 09/23/20 at 12:00 Ceftriaxone Sodium (Rocephin) 1 gm Q24H IVP Last administered on 09/24/20at 11:28; Start 09/24/20 at 09:00 Sodium Chloride (Normal Saline Flush) 3 ml QSHIFT PRN IV AFTER MEDS AND BLOOD DRAWS; Start 09/23/20 at 15:45 Ondansetron HCl (Zofran) 4 mg PRN Q4HRS PRN IV NAUSEA/VOMITING; Start 09/23/20 at 15:45 Acetaminophen (Tylenol) 650 mg PRN Q4HRS PRN PO TEMP OVER 100.4F OR MILD PAIN; Start 09/23/20 at 15:45 Acetaminophen (Tylenol Supp) 650 mg PRN Q4HRS PRN ND TEMP OVER 100.4F OR MILD PAIN; Start 09/23/20 at 15:45 Al Hydroxide/Mg Hydroxide (Mylanta Plus Xs) 30 ml PRN DAILY PRN PO HEARTBURN / GAS; Start 09/23/20 at 15:45 Sodium Monofluorophosphate (Fleet Adult) 133 ml PRN DAILY PRN ND CONSTIPATION; Start 09/23/20 at 15:45 Docusate Sodium (Colace) 100 mg PRN BID PRN PO HARD STOOLS; Start 09/23/20 at 15:45 Albuterol Sulfate (Ventolin Neb Soln) 2.5 mg PRN Q4HRS PRN NEB SHORTNESS OF BREATH; Start 09/23/20 at 15:45 Guaifenesin (Robitussin) 200 mg PRN Q4HRS PRN PO COUGH; Start 09/23/20 at 15:45 Enoxaparin Sodium (Lovenox 40mg Syringe) 40 mg Q24H SQ Last administered on 09/24/20at 22:54; Start 09/23/20 at 21:00 Ascorbic Acid (Vitamin C) 500 mg DAILY PO Last administered on 09/24/20at 12:45; Start 09/24/20 at 12:00 Sodium Chloride 1,000 ml @ 75 mls/hr [id number] IV Last administered on 09/24/20at 18:14; Start 09/24/20 at 17:45 Active Scripts Active Prednisone 20 Mg Tablet 1 Tab PO DAILY 5 Days Culturelle (Lactobacillus Rhamnosus Gg) 1 Each Cap.sprink 1 Cap PO BID 30 Days Enoxaparin Sodium 40 Mg/0.4 Ml Disp.syrin 40 Mg SQ DAILY 7 Days Amox Tr-K Clv 875-125 Mg Tab (Amoxicillin/Potassium Clav) 1 Each Tablet 1 Tab PO BID 3 Days Tramadol HCl ER (Tramadol HCl) 100 Mg Cpbp.25.75 50 Mg PO PRN Q6HRS PRN 6 Days FENTANYL 50mcg/hr (Fentanyl) 1 Each Patch.td72 1 Patch TD Q72H 30 Days Reported Novolog (Insulin Aspart) 100 Unit/1 Ml Cartridge 10 Unit SQ TID One-Daily Multi-Vitamin (Multivitamin) 1 Each Tablet 1 Tab PO DAILY 30 Days Metformin Hcl 1,000 Mg Tablet 1,000 Mg PO BIDWMEALS Acetaminophen 325 Mg Tablet 2 Tab PO PRN Q6HRS PRN 24 Days Nystatin 15 Gm Powder 15 Gm TP BID Losartan Potassium 100 Mg Tablet 100 Mg PO DAILY Loperamide (Loperamide Hcl) 2 Mg Tablet 2 Mg PO PRN Q4-6HRS Furosemide 20 Mg Tablet 1 Tab PO DAILY Lantus Solostar (Insulin Glargine,Hum.rec.anlog) 100 Unit/1 Ml Insuln.pen 25 Unit SQ QHS Hydralazine Hcl 50 Mg Tablet 1 Tab PO BID Carvedilol 25 Mg Tablet 25 Mg PO BIDWMEALS Colace (Docusate Sodium) 100 Mg Capsule 1 Cap PO BID 30 Days Clopidogrel (Clopidogrel Bisulfate) 75 Mg Tablet 1 Tab PO DAILY Atorvastatin Calcium 10 Mg Tablet 10 Mg PO HS Vitals/I & O Vital Sign - Last 24 Hours 09/24/20 09/24/20 09/24/20 09/24/20 09:14 09:14 11:00 15:00 Temp 98.3 98.8 98.3 98.8 Pulse 81 81 102 70 Resp 16 18 B/P (MAP) 135/60 135/60 120/90 (100) 125/86 (99) Pulse Ox 95 95 O2 Delivery Room Air Room Air 09/24/20 09/24/20 09/24/20 09/24/20 18:15 19:00 20:30 22:54 Temp 98.4 98.4 Pulse 69 66 66 Resp 22 B/P (MAP) 122/58 135/65 (88) 135/65 Pulse Ox 96 O2 Delivery Room Air 09/24/20 09/25/20 23:00 03:00 Temp 98.3 98.1 98.3 98.1 Pulse 73 Resp 20 21 B/P (MAP) 127/62 (83) 106/72 (83) Pulse Ox 95 96 O2 Delivery Room Air Room Air Intake and Output 09/24/20 09/24/20 09/25/20 15:00 23:00 07:00 Intake Total 440 ml 200 ml Output Total 900 ml Balance 440 ml -700 ml Justicifation of Admission Dx: Justifications for Admission: Justification of Admission Dx: N/A LILY LOPEZ MD Sep 25, 2020 08:35
[2020-09-25] MEDS: DOCUSATE SODIUM 100 MG CAPSULE. PO SCH ×2 (09:00→21:00)
[2020-09-25] MEDS: IV NORMAL SALINE 1000ML BAG 1,000 ML IV SCH (10:23)
[2020-09-25] MEDS: ASCORBIC ACID 500 MG TABLET PO SCH (10:24)
[2020-09-25] MEDS: CLOPIDOGREL BISULFATE 75 MG TABLET PO SCH (10:24)
[2020-09-25] MEDS: MULTIVITAMIN with MINERAL TABLET. PO SCH (10:24)
[2020-09-25] MEDS: LACTOBACILLUS RHAMNOSUS GG 1 CAPSULE. PO SCH ×2 (10:24→21:57)
[2020-09-25] MEDS: predniSONE 20 MG TABLET PO SCH (10:24)
[2020-09-25] MEDS: CARVEDILOL 12.5 MG TABLET. PO SCH ×2 (10:25→18:50)
[2020-09-25] MEDS: NYSTATIN TOPICAL POWDER 15GM BOTTLE. TP SCH ×2 (10:26→21:00)
--- NOTE | 2020-09-25 11:27 | NUR ---
SW following. Discussed with RN, pt from [facility], room air, soft mechanical diet. Pt does not need a COVID test to return to facility. [facility] advised they can do IV fluids and IV abx if pt needing upon return. Dr. Hurtado notified. OLIVIA will continue to follow.
--- NOTE | 2020-09-25 11:42 | PDOC ---
Renal-Progress Notes Subjective Notes Notes NO NEW COMPLAINTS History of Present Illness Hx of present illness NO ACUTE CHANGES Vitals Vitals Vital Signs Date Time Temp Pulse Resp B/P (MAP) Pulse Ox O2 Delivery O2 Flow Rate FiO2 09/25/20 10:25 64 113/50 09/25/20 07:00 97.9 16 16 Room Air 97.9 Weight Weight [ ] I.O. Intake and Output Intake and Output 09/25/20 07:00 Intake Total 640 ml Output Total 900 ml Balance -260 ml Intake Oral 640 ml Output Urine Total 900 ml # Voids 4 Labs Labs Laboratory Tests Test 09/24/20 14:22 09/24/20 17:22 09/24/20 20:28 09/25/20 08:28 White Blood Count 6.4 x10^3/uL (4.0-11.0) Red Blood Count 3.10 x10^6/uL (3.50-5.40) Hemoglobin 8.8 g/dL (12.0-15.5) Hematocrit 26.3 % (36.0-47.0) Mean Corpuscular Volume 85 fL (79-100) Mean Corpuscular Hemoglobin 28 pg (25-35) Mean Corpuscular Hemoglobin Concent 34 g/dL (31-37) Red Cell Distribution Width 13.6 % (11.5-14.5) Platelet Count 258 x10^3/uL (140-400) Neutrophils (%) (Auto) 78 % (31-73) Lymphocytes (%) (Auto) 16 % (24-48) Monocytes (%) (Auto) 5 % (0-9) Eosinophils (%) (Auto) 0 % (0-3) Basophils (%) (Auto) 0 % (0-3) Neutrophils # (Auto) 5.0 x10^3/uL (1.8-7.7) Lymphocytes # (Auto) 1.0 x10^3/uL (1.0-4.8) Monocytes # (Auto) 0.4 x10^3/uL (0.0-1.1) Eosinophils # (Auto) 0.0 x10^3/uL (0.0-0.7) Basophils # (Auto) 0.0 x10^3/uL (0.0-0.2) Sodium Level 143 mmol/L (136-145) Potassium Level 4.6 mmol/L (3.5-5.1) Chloride Level 112 mmol/L (98-107) Carbon Dioxide Level 16 mmol/L (21-32) Anion Gap 15 (6-14) Blood Urea Nitrogen 119 mg/dL (7-20) Creatinine 3.5 mg/dL (0.6-1.0) Estimated GFR (Cockcroft-Gault) 15.6 Glucose Level 154 mg/dL (70-99) Calcium Level 9.7 mg/dL (8.5-10.1) Glucose (Fingerstick) 103 mg/dL (70-99) 159 mg/dL (70-99) 99 mg/dL (70-99) Micro Micro Microbiology 09/23/20 Urine Culture - Final, Complete 09/23/20 Antimicrobic Susceptibility - Final, Complete Review of Systems Constitutional: yes: other (CONFUSED) Physical Exam General Appearance: no apparent distress Skin: warm Respiratory: bilateral CTA Heart: S1S2 Abdomen: soft, bowel sounds present Genitourinary: bladder flat Extremities: pulses present, atrophy Neurology: alert, confused Assessment Assessment Assessment/Plan IMP JEVON WITH CR OF 3.7 ON ADMIT AND NOW 3.5 CKD STAGE 3B WITH CR OF 1.8 DEHYDRATION URINARY TRACT INFECTION MET ENCEPHALOPATHY PNEUMONIA MALNUTRITION SACRAL DECUBITI HX CVA WITH CONTRACTURES ANEMIA DM II PLAN HOLD ARB HOLD DIURETICS HYDRATION ANTIBIOTICS LAB PENDING FOR TODAY WILL FOLLOW LEXIE HUMPHREY MD Sep 25, 2020 11:42
[2020-09-25] MEDS: cefTRIAXone IV Push 1 GM VIAL. IVP SCH (11:43)
[2020-09-25 12:18] LABS: BASO % 0 % (0-3); EOS # 0.1 x10^3/uL (0.0-0.7); EOS % 1 % (0-3); HEMATOCRIT 26.1 % (36.0-47.0); LYMPH # 1.4 x10^3/uL (1.0-4.8); LYMPH % 20 % (24-48); MEAN CORPUSCULAR HEMOGLOBIN 29 pg (25-35); MEAN CORPUSCULAR HGB CONC 35 g/dL (31-37); MEAN CORPUSCULAR VOLUME 85 fL (79-100); MONO # 0.6 x10^3/uL (0.0-1.1); MONO % 9 % (0-9); NEUT # 5.1 x10^3/uL (1.8-7.7); NEUT % 71 % (31-73); PLATELET COUNT 260 x10^3/uL (140-400); RED BLOOD COUNT 3.08 x10^6/uL (3.50-5.40); RED CELL DISTRIBUTION WIDTH 13.5 % (11.5-14.5); WHITE BLOOD COUNT 7.3 x10^3/uL (4.0-11.0)
[2020-09-25 12:50] LABS: ALBUMIN 3.1 g/dL (3.4-5.0); ALBUMIN/GLOBULIN RATIO 0.7 (1.0-1.7); CREATININE 2.5 mg/dL (0.6-1.0); POTASSIUM 4.3 mmol/L (3.5-5.1); TOTAL BILIRUBIN 0.3 mg/dL (0.2-1.0); TOTAL PROTEIN 7.7 g/dL (6.4-8.2)
--- NOTE | 2020-09-25 12:57 | NUR ---
Lunch dose of insulin not administered due to patient refused to eat lunch.
[2020-09-25] MEDS: ATORVASTATIN CALCIUM 10 MG TABLET. PO SCH (21:57)
[2020-09-25] MEDS: ENOXAPARIN 40 MG/0.4 ML SYRINGE. SQ SCH (21:58)
[2020-09-26] MEDS: IV NORMAL SALINE 1000ML BAG 1,000 ML IV SCH ×2 (00:27→12:41)
[2020-09-26 03:00] VITALS: BP 121/63
[2020-09-26 07:00] VITALS: BP 144/61
[2020-09-26] MEDS: CARVEDILOL 12.5 MG TABLET. PO SCH (08:00)
[2020-09-26] MEDS: INSULIN LISPRO 300 UNITS/3 ML VIAL. SQ SCH ×3 (08:00→18:00)
[2020-09-26] MEDS: DOCUSATE SODIUM 100 MG CAPSULE. PO SCH ×2 (09:00→21:00)
[2020-09-26] MEDS: MULTIVITAMIN with MINERAL TABLET. PO SCH (09:40)
[2020-09-26] MEDS: LACTOBACILLUS RHAMNOSUS GG 1 CAPSULE. PO SCH ×2 (09:40→20:14)
[2020-09-26] MEDS: predniSONE 20 MG TABLET PO SCH (09:40)
[2020-09-26] MEDS: ASCORBIC ACID 500 MG TABLET PO SCH (09:40)
[2020-09-26] MEDS: CLOPIDOGREL BISULFATE 75 MG TABLET PO SCH (09:40)
[2020-09-26] MEDS: NYSTATIN TOPICAL POWDER 15GM BOTTLE. TP SCH ×2 (09:42→20:15)
[2020-09-26 09:49] LABS: CALCIUM 9.9 mg/dL (8.5-10.1); CREATININE 2.4 mg/dL (0.6-1.0); GFR 24.1; PHOSPHORUS 2.3 mg/dL (2.6-4.7); POTASSIUM 4.1 mmol/L (3.5-5.1)
--- NOTE | 2020-09-26 09:55 | NUR ---
SW following. Discussed with RN, pt from [facility], room air, soft mechanical diet. Cardiology consulted. OLIVIA faxed clinicals to [facility] in case of weekend discharge. [facility] is not requiring a COVID test to return. OLIVIA will continue to follow.
[2020-09-26 11:00] VITALS: BP 143/77
--- NOTE | 2020-09-26 12:31 | PDOC2 ---
KAYLEN GONZALEZ THREAD MILLING MACHINE SET UP OPERATOR 09/26/20 1231: CARDIAC CONSULT DATE OF CONSULT Date of Consult DATE: 09/26/20 TIME: 12:24 REASON FOR CONSULT Reason for Consult: bradycardia on coreg REFERRING PHYSICIAN Referring Physician: Fullbright SOURCE Source: Chart review HISTORY OF PRESENT ILLNESS HISTORY OF PRESENT ILLNESS This is a 70 yo female admitted for episodes of vomiting. No reported complains of chest pain, SOA. or diarrhea. She came from a facility and likely has dementia with multiple strokes in the past pointed out by daughter. I talked to Arti her daughter as pt is a poor historian and no cardiac symptoms were reported to her. She does however has hx of CAD in addition with stents in the past possibly over 2 yrs ago done at [facility]. She also had Covid-19 last yr which she recovered from but could not tell me if patient has issues with bradycardia, AFIB or any other arrhythmias. Pt is not on any anticoagulation but does take plavix. Currently denies any chest pain or SOA. PAST MEDICAL HISTORY Cardiovascular: CAD, HTN, Hyperlipidemia Pulmonary: COPD, Pneumonia, Other (covid-19) CENTRAL NERVOUS SYSTEM: CVA (with left side hemiparesis), Dementia, Periperal neuropathy, Seizure GI: Constipation Heme/Onc: Anemia NOS Hepatobiliary: No pertinent hx Psych: No pertinent hx Musculoskeletal: Osteoarthritis Rheumatologic: Gout Infectious disease: No pertinent hx ENT: No pertinent hx Renal/: Chronic renal insuff (?) Endocrine: Diabetes (2) Dermatology: Other (coccyx ulcer) PAST SURGICAL HISTORY Past Surgical History: Total hip replacement, Hysterectomy FAMILY HISTORY Family History: Family History Unknown SOCIAL HISTORY Smoke: Quit ALCOHOL: none Drugs: None Lives: [facility] ALLERGIES ALLERGIES: Coded Allergies: No Known Drug Allergies (Unverified , 04/28/20) ROS Review of System limited, poor historian PHYSICAL EXAM General: Alert, Cooperative, No acute distress, Other (Ox2) HEENT: Atraumatic, Mucous membr. moist/pink Lungs: Other (diminished bases) Heart: Regular rate (SR) Abdomen: Soft, Other (obesde) Extremities: No cyanosis, No edema Skin: Other (sacral ulcer) Neuro: Normal speech, Sensation intact Psych/Mental Status: Mental status NL, Mood NL MUSCULOSKELETAL: Osteoarthritic changes both hands VITALS/I&O VITALS/I&O: Vital Signs Date Time Temp Pulse Resp B/P (MAP) Pulse Ox O2 Delivery O2 Flow Rate FiO2 09/26/20 11:00 98.7 62 18 143/77 (99) 96 Room Air 98.7 I & O 09/25/20 09/25/20 09/26/20 15:00 23:00 07:00 Intake Total 1000 ml Balance 1000 ml LABS Lab: Laboratory Tests Test 09/25/20 16:38 09/25/20 21:12 09/26/20 08:02 09/26/20 08:43 Glucose (Fingerstick) 292 mg/dL (70-99) H 318 mg/dL (70-99) H 135 mg/dL (70-99) H Sodium Level 150 mmol/L (136-145) H Potassium Level 4.1 mmol/L (3.5-5.1) Chloride Level 117 mmol/L (98-107) H Carbon Dioxide Level 21 mmol/L (21-32) Anion Gap 12 (6-14) Blood Urea Nitrogen 69 mg/dL (7-20) H Creatinine 2.4 mg/dL (0.6-1.0) H Estimated GFR (Cockcroft-Gault) 24.1 Glucose Level 126 mg/dL (70-99) H Calcium Level 9.9 mg/dL (8.5-10.1) Phosphorus Level 2.3 mg/dL (2.6-4.7) L Albumin 3.0 g/dL (3.4-5.0) L Test 09/26/20 11:49 Glucose (Fingerstick) 165 mg/dL (70-99) H Laboratory Tests 09/26/20 08:43 ASSESSMENT/PLAN ASSESSMENT/PLAN 1. Asymptomatic Sinus bradycardia: lowest in the 40s due to high dose coreg with renal insufficiency. No pauses or high grade blocks 2. JEVON likely on CKD: nephrology following 3. HTN: controlled 4. DM2/HLP: per PCP 5. CAD: past stents at [facility], clinically stable 6. Multiple past CVA with left side hemiparesis 7. suspect underlying dementia Recommendations 1. She takes 25 mg daily of coreg bid and will decrease to 6.25 mg bid 2. Continue plavix and secondary prevention measures 3. Renal optimization per nephrology. Avoid nephrotoxins. 4. May follow up in office if family wishes. [place] used to live in [place] and now in [place] hence want to transfer cardiology care. LIZA ROACH MD 09/26/20 5837: CARDIAC CONSULT ASSESSMENT/PLAN ASSESSMENT/PLAN Patient seen and examined. Agree with ANTISQUEAK CHALKER's assessment and plan. Sinus bradycardia asymptomatic and prob secondary to high dose coreg Agree with decreasing dose of coreg Tele did not show any pauses/evidence of SSS CAD clinically stable. Continue current secondary prevention measures Follow up with our office in one month KAYLEN GONZALEZ APRN Sep 26, 2020 12:31 LIZA ROACH MD Sep 26, 2020 16:57
[2020-09-26] MEDS: cefTRIAXone IV Push 1 GM VIAL. IVP SCH (12:42)
--- NOTE | 2020-09-26 13:13 | PDOC ---
Renal-Progress Notes Subjective Notes Notes NO NEW COMPLAINTS History of Present Illness Hx of present illness STABLE Vitals Vitals Vital Signs Date Time Temp Pulse Resp B/P (MAP) Pulse Ox O2 Delivery O2 Flow Rate FiO2 09/26/20 11:00 98.7 62 18 143/77 (99) 96 Room Air 98.7 Weight Weight [ ] I.O. Intake and Output Intake and Output 09/26/20 07:00 Intake Total 1000 ml Balance 1000 ml IV Total 1000 ml # Voids 2 Labs Labs Laboratory Tests Test 09/25/20 16:38 09/25/20 21:12 09/26/20 08:02 09/26/20 08:43 Glucose (Fingerstick) 292 mg/dL (70-99) 318 mg/dL (70-99) 135 mg/dL (70-99) Sodium Level 150 mmol/L (136-145) Potassium Level 4.1 mmol/L (3.5-5.1) Chloride Level 117 mmol/L (98-107) Carbon Dioxide Level 21 mmol/L (21-32) Anion Gap 12 (6-14) Blood Urea Nitrogen 69 mg/dL (7-20) Creatinine 2.4 mg/dL (0.6-1.0) Estimated GFR (Cockcroft-Gault) 24.1 Glucose Level 126 mg/dL (70-99) Calcium Level 9.9 mg/dL (8.5-10.1) Phosphorus Level 2.3 mg/dL (2.6-4.7) Albumin 3.0 g/dL (3.4-5.0) Test 09/26/20 11:49 Glucose (Fingerstick) 165 mg/dL (70-99) Micro Micro Microbiology 09/23/20 Urine Culture - Final, Complete 09/23/20 Antimicrobic Susceptibility - Final, Complete Review of Systems Constitutional: yes: other (CONFUSED) Physical Exam General Appearance: no apparent distress Skin: warm Respiratory: bilateral CTA Heart: S1S2 Abdomen: soft, bowel sounds present Genitourinary: bladder flat Extremities: pulses present, atrophy Neurology: alert, confused Assessment Assessment Assessment/Plan IMP JEVON WITH CR OF 3.7 ON ADMIT AND NOW 2.4 CKD STAGE 3B WITH CR OF 1.8 DEHYDRATION URINARY TRACT INFECTION MET ENCEPHALOPATHY PNEUMONIA MALNUTRITION SACRAL DECUBITI HX CVA WITH CONTRACTURES ANEMIA DM II PLAN HOLD ARB HOLD DIURETICS HYDRATION ANTIBIOTICS LAB PENDING FOR TODAY WILL FOLLOW LEXIE HUMPHREY MD Sep 26, 2020 13:13
[2020-09-26 15:00] VITALS: BP 144/83
[2020-09-26] MEDS ORDERED: CARVEDILOL 12.5 MG TABLET. PO SCH (17:00)
[2020-09-26] MEDS: CARVEDILOL 6.25 MG TABLET. PO SCH (17:25)
[2020-09-26 20:12] VITALS: BP 135/97
[2020-09-26] MEDS: ATORVASTATIN CALCIUM 10 MG TABLET. PO SCH (20:14)
[2020-09-26] MEDS: ENOXAPARIN 40 MG/0.4 ML SYRINGE. SQ SCH (20:14)
[2020-09-26 23:25] VITALS: BP 145/69
[2020-09-27] MEDS: IV NORMAL SALINE 1000ML BAG 1,000 ML IV SCH ×2 (02:08→12:25)
[2020-09-27 03:10] VITALS: BP 136/60
[2020-09-27 07:59] VITALS: BP 134/63
[2020-09-27 08:26] LABS: ALBUMIN 2.9 g/dL (3.4-5.0); CALCIUM 9.9 mg/dL (8.5-10.1); CREATININE 2.1 mg/dL (0.6-1.0); GFR 28.1; PHOSPHORUS 2.2 mg/dL (2.6-4.7); POTASSIUM 3.6 mmol/L (3.5-5.1)
[2020-09-27] MEDS: MULTIVITAMIN with MINERAL TABLET. PO SCH (08:43)
[2020-09-27] MEDS: predniSONE 20 MG TABLET PO SCH (08:43)
[2020-09-27] MEDS: LACTOBACILLUS RHAMNOSUS GG 1 CAPSULE. PO SCH ×2 (08:43→21:35)
[2020-09-27] MEDS: CARVEDILOL 6.25 MG TABLET. PO SCH ×2 (08:44→17:36)
[2020-09-27] MEDS: DOCUSATE SODIUM 100 MG CAPSULE. PO SCH ×2 (08:44→21:36)
[2020-09-27] MEDS: CLOPIDOGREL BISULFATE 75 MG TABLET PO SCH (08:44)
[2020-09-27] MEDS: NYSTATIN TOPICAL POWDER 15GM BOTTLE. TP SCH ×2 (08:45→21:37)
[2020-09-27] MEDS: INSULIN LISPRO 300 UNITS/3 ML VIAL. SQ SCH ×3 (08:52→17:39)
[2020-09-27] MEDS: ASCORBIC ACID 500 MG TABLET PO SCH (09:00)
--- NOTE | 2020-09-27 10:07 | PDOC ---
PROGRESS NOTES Date of Service: DATE: 09/27/20 TIME: 10:07 Chief Complaint Chief Complaint VTE Prophylaxis Ordered VTE Prophylaxis Devices: Yes VTE Pharmacological Prophylaxi: Yes Assessment/Plan Assessment/Plan IMPRESSION: Patchy opacities medial right lung base, possibly atelectasis. ACUTE RENAL INJURY, acute vasomotor nephropathy UTI - with confusion Pneumonia - likely COVID 19 related, RECOVERED Protein calorie malnutrition - moderate, Sepsis - H/o CVA with contractures - cont statin, ASA therapy DM2 - sliding scale insulin + basal bolus HLD - cont statin Anemia - likely of chronic disease CAD - stable, will cont meds H/o Gout - no pain complaints currently Sacral decubitus ulcer - stage I/II - local wound care uti PLAN ADMIT NEPHROLOGY CONSULT IV FLUID SUPPORT DVT PROPHYLAXIS IV ROCEPHIN 1 GM Q 24 HRS D/W RN cr slow to improve at 2.1 Justifications for Admission Other Justification History of Present Illness History of Present Illness Identification/Chief Complaint Chief Complaint SEEN IN ER WITH ACUTE RENAL INJURY 70 year old female who presents via EMS at 1 AM from nursing facility. Patient had labs drawn at 10 AM the previous day however resulted around midnight. She had some episodes of vomiting earlier which prompted the lab draw and a KUB. Labs showed her BUN and creatinine were elevated. Patient does not have a history of renal failure. Patient is alert oriented x2 and history was obtained from EMS and report from nursing facility. They state that her p.o. intake has been at 50% recently. Per chart review she was hospitalized with COVID-19 in April. 70yo F SNF resident w/ PMHx CVA with contractures, DM2, HLD, Anemia, CAD, Gout who presents to ED via [facility] from SNF for worsening mental status POOR INTAKE She was recently diagnosed with COVID19 on 04/18/2020 and was doing well TODAY Past Medical History Cardiovascular: HTN, Hyperlipidemia CENTRAL NERVOUS SYSTEM: CVA Rheumatologic: Gout Endocrine: Diabetes Past Surgical History Past Surgical History: No pertinent history Family History Family History: Hypertension, Family History Unknown Social History Smoke: No ALCOHOL: none Drugs: None Current Problem List Problem List Problems Medical Problems: (1) Acute renal insufficiency Status: Acute (2) UTI (urinary tract infection) Status: Acute Vitals Vitals Vital Signs Date Time Temp Pulse Resp B/P (MAP) Pulse Ox O2 Delivery O2 Flow Rate FiO2 09/27/20 08:44 57 134/63 09/27/20 08:00 Room Air 09/27/20 07:59 99.6 16 95 99.6 Physical Exam Physical Exam Physical Exam General: Alert, Oriented X3, Cooperative, No acute distress Lungs: Clear to auscultation, Normal air movement Heart: RRR Breasts: Not examined Abdomen: Normal bowel sounds, Soft PELVIC: Examination not indicated Extremities: No cyanosis Neuro: Normal speech, Sensation intact, Cranial nerves 3-12 NL Psych/Mental Status: Mental status NL, Mood NL General: Alert, Cooperative, No acute distress, Other (Ox2) Heart: Regular rate (SR) Abdomen: Soft, Other (obesde) Extremities: No cyanosis, No edema Skin: Other (sacral ulcer) Labs LABS Laboratory Tests Test 09/26/20 11:49 09/26/20 17:10 09/26/20 21:06 09/27/20 07:00 Glucose (Fingerstick) 165 mg/dL (70-99) 266 mg/dL (70-99) 251 mg/dL (70-99) Sodium Level 145 mmol/L (136-145) Potassium Level 3.6 mmol/L (3.5-5.1) Chloride Level 113 mmol/L (98-107) Carbon Dioxide Level 19 mmol/L (21-32) Anion Gap 13 (6-14) Blood Urea Nitrogen 53 mg/dL (7-20) Creatinine 2.1 mg/dL (0.6-1.0) Estimated GFR (Cockcroft-Gault) 28.1 Glucose Level 123 mg/dL (70-99) Calcium Level 9.9 mg/dL (8.5-10.1) Phosphorus Level 2.2 mg/dL (2.6-4.7) Albumin 2.9 g/dL (3.4-5.0) Test 09/27/20 08:30 Glucose (Fingerstick) 140 mg/dL (70-99) Assessment and Plan Assessmemt and Plan Problems Medical Problems: (1) Acute renal insufficiency Status: Acute (2) UTI (urinary tract infection) Status: Acute Comment Review of Relevant I have reviewed the following items daniel (where applicable) has been applied. Labs Laboratory Tests Test 09/25/20 11:25 09/25/20 12:03 09/25/20 16:38 09/25/20 21:12 White Blood Count 7.3 x10^3/uL (4.0-11.0) Red Blood Count 3.08 x10^6/uL (3.50-5.40) Hemoglobin 9.0 g/dL (12.0-15.5) Hematocrit 26.1 % (36.0-47.0) Mean Corpuscular Volume 85 fL (79-100) Mean Corpuscular Hemoglobin 29 pg (25-35) Mean Corpuscular Hemoglobin Concent 35 g/dL (31-37) Red Cell Distribution Width 13.5 % (11.5-14.5) Platelet Count 260 x10^3/uL (140-400) Neutrophils (%) (Auto) 71 % (31-73) Lymphocytes (%) (Auto) 20 % (24-48) Monocytes (%) (Auto) 9 % (0-9) Eosinophils (%) (Auto) 1 % (0-3) Basophils (%) (Auto) 0 % (0-3) Neutrophils # (Auto) 5.1 x10^3/uL (1.8-7.7) Lymphocytes # (Auto) 1.4 x10^3/uL (1.0-4.8) Monocytes # (Auto) 0.6 x10^3/uL (0.0-1.1) Eosinophils # (Auto) 0.1 x10^3/uL (0.0-0.7) Basophils # (Auto) 0.0 x10^3/uL (0.0-0.2) Sodium Level 144 mmol/L (136-145) Potassium Level 4.3 mmol/L (3.5-5.1) Chloride Level 113 mmol/L (98-107) Carbon Dioxide Level 19 mmol/L (21-32) Anion Gap 12 (6-14) Blood Urea Nitrogen 86 mg/dL (7-20) Creatinine 2.5 mg/dL (0.6-1.0) Estimated GFR (Cockcroft-Gault) 23.0 BUN/Creatinine Ratio 34 (6-20) Glucose Level 118 mg/dL (70-99) Calcium Level 10.0 mg/dL (8.5-10.1) Total Bilirubin 0.3 mg/dL (0.2-1.0) Aspartate Amino Transf (AST/SGOT) 13 U/L (15-37) Alanine Aminotransferase (ALT/SGPT) 16 U/L (14-59) Alkaline Phosphatase 45 U/L (46-116) Total Protein 7.7 g/dL (6.4-8.2) Albumin 3.1 g/dL (3.4-5.0) Albumin/Globulin Ratio 0.7 (1.0-1.7) Glucose (Fingerstick) 154 mg/dL (70-99) 292 mg/dL (70-99) 318 mg/dL (70-99) Test 09/26/20 08:02 09/26/20 08:43 09/26/20 11:49 09/26/20 17:10 Glucose (Fingerstick) 135 mg/dL (70-99) 165 mg/dL (70-99) 266 mg/dL (70-99) Sodium Level 150 mmol/L (136-145) Potassium Level 4.1 mmol/L (3.5-5.1) Chloride Level 117 mmol/L (98-107) Carbon Dioxide Level 21 mmol/L (21-32) Anion Gap 12 (6-14) Blood Urea Nitrogen 69 mg/dL (7-20) Creatinine 2.4 mg/dL (0.6-1.0) Estimated GFR (Cockcroft-Gault) 24.1 Glucose Level 126 mg/dL (70-99) Calcium Level 9.9 mg/dL (8.5-10.1) Phosphorus Level 2.3 mg/dL (2.6-4.7) Albumin 3.0 g/dL (3.4-5.0) Test 09/26/20 21:06 09/27/20 07:00 09/27/20 08:30 Glucose (Fingerstick) 251 mg/dL (70-99) 140 mg/dL (70-99) Sodium Level 145 mmol/L (136-145) Potassium Level 3.6 mmol/L (3.5-5.1) Chloride Level 113 mmol/L (98-107) Carbon Dioxide Level 19 mmol/L (21-32) Anion Gap 13 (6-14) Blood Urea Nitrogen 53 mg/dL (7-20) Creatinine 2.1 mg/dL (0.6-1.0) Estimated GFR (Cockcroft-Gault) 28.1 Glucose Level 123 mg/dL (70-99) Calcium Level 9.9 mg/dL (8.5-10.1) Phosphorus Level 2.2 mg/dL (2.6-4.7) Albumin 2.9 g/dL (3.4-5.0) Laboratory Tests Test 09/26/20 11:49 09/26/20 17:10 09/26/20 21:06 09/27/20 07:00 Glucose (Fingerstick) 165 mg/dL (70-99) 266 mg/dL (70-99) 251 mg/dL (70-99) Sodium Level 145 mmol/L (136-145) Potassium Level 3.6 mmol/L (3.5-5.1) Chloride Level 113 mmol/L (98-107) Carbon Dioxide Level 19 mmol/L (21-32) Anion Gap 13 (6-14) Blood Urea Nitrogen 53 mg/dL (7-20) Creatinine 2.1 mg/dL (0.6-1.0) Estimated GFR (Cockcroft-Gault) 28.1 Glucose Level 123 mg/dL (70-99) Calcium Level 9.9 mg/dL (8.5-10.1) Phosphorus Level 2.2 mg/dL (2.6-4.7) Albumin 2.9 g/dL (3.4-5.0) Test 09/27/20 08:30 Glucose (Fingerstick) 140 mg/dL (70-99) Microbiology 09/23/20 Urine Culture - Final, Complete 09/23/20 Antimicrobic Susceptibility - Final, Complete Medications Current Medications Sodium Chloride 500 ml @ 500 mls/hr 1X ONCE IV Last administered on 09/23/20at 02:18; Start 09/23/20 at 02:15; Stop 09/23/20 at 03:14; Status DC Ondansetron HCl (Zofran) 4 mg PRN Q8HRS PRN IV NAUSEA/VOMITING Last administered on 09/23/20at 03:27; Start 09/23/20 at 02:45; Stop 09/24/20 at 02:44; Status DC Sodium Chloride 1,000 ml @ 100 mls/hr Q10H IV Last administered on 09/24/20at 01:59; Start 09/23/20 at 02:45; Stop 09/24/20 at 02:44; Status DC Ceftriaxone Sodium (Rocephin) 1 gm 1X ONCE IVP Last administered on 09/23/20at 03:22; Start 09/23/20 at 03:00; Stop 09/23/20 at 03:01; Status DC Atorvastatin Calcium (Lipitor) 10 mg HS PO Last administered on 09/26/20at 20:14; Start 09/23/20 at 21:00 Clopidogrel Bisulfate (Plavix) 75 mg DAILY PO Last administered on 09/27/20at 08:44; Start 09/23/20 at 12:00 Docusate Sodium (Colace) 100 mg BID PO Last administered on 09/27/20at 08:44; Start 09/23/20 at 12:00 Hydralazine HCl (Apresoline) 50 mg BID PO Last administered on 09/27/20at 08:43; Start 09/23/20 at 12:00 Lactobacillus Rhamnosus (Culturelle) 1 cap BID PO Last administered on 09/27/20at 08:43; Start 09/23/20 at 12:00 Nystatin (Nystop) 1 eros BID TP Last administered on 09/27/20at 08:45; Start 09/23/20 at 12:00 Prednisone (Prednisone) 20 mg DAILY PO Last administered on 09/27/20at 08:43; Start 09/23/20 at 12:00 Carvedilol (Coreg) 25 mg BIDWMEALS PO Last administered on 09/25/20at 18:50; Start 09/23/20 at 12:00; Stop 09/26/20 at 10:33; Status DC Insulin Human Lispro (HumaLOG) 10 units TIDWMEALS SQ Last administered on 09/27/20 08:52; Start 09/23/20 at 12:00 Multivitamins (Thera M Plus) 1 tab DAILY PO Last administered on 09/27/20at 08:43; Start 09/23/20 at 12:00 Ceftriaxone Sodium (Rocephin) 1 gm Q24H IVP Last administered on 09/26/20at 12:42; Start 09/24/20 at 09:00 Sodium Chloride (Normal Saline Flush) 3 ml QSHIFT PRN IV AFTER MEDS AND BLOOD DRAWS; Start 09/23/20 at 15:45 Ondansetron HCl (Zofran) 4 mg PRN Q4HRS PRN IV NAUSEA/VOMITING; Start 09/23/20 at 15:45 Acetaminophen (Tylenol) 650 mg PRN Q4HRS PRN PO TEMP OVER 100.4F OR MILD PAIN Last administered on 09/26/20at 20:21; Start 09/23/20 at 15:45 Acetaminophen (Tylenol Supp) 650 mg PRN Q4HRS PRN CO TEMP OVER 100.4F OR MILD PAIN; Start 09/23/20 at 15:45 Al Hydroxide/Mg Hydroxide (Mylanta Plus Xs) 30 ml PRN DAILY PRN PO HEARTBURN / GAS; Start 09/23/20 at 15:45 Sodium Monofluorophosphate (Fleet Adult) 133 ml PRN DAILY PRN CO CONSTIPATION; Start 09/23/20 at 15:45 Docusate Sodium (Colace) 100 mg PRN BID PRN PO HARD STOOLS; Start 09/23/20 at 15:45 Albuterol Sulfate (Ventolin Neb Soln) 2.5 mg PRN Q4HRS PRN NEB SHORTNESS OF BREATH; Start 09/23/20 at 15:45 Guaifenesin (Robitussin) 200 mg PRN Q4HRS PRN PO COUGH; Start 09/23/20 at 15:45 Enoxaparin Sodium (Lovenox 40mg Syringe) 40 mg Q24H SQ Last administered on 09/26/20at 20:14; Start 09/23/20 at 21:00 Ascorbic Acid (Vitamin C) 500 mg DAILY PO Last administered on 09/26/20at 09:40; Start 09/24/20 at 12:00 Sodium Chloride 1,000 ml @ 75 mls/hr [id number] IV Last administered on 09/27/20at 02:08; Start 09/24/20 at 17:45 Carvedilol (Coreg) 12.5 mg BIDWMEALS PO ; Start 09/26/20 at 17:00; Stop 09/26/20 at 15:25; Status DC Carvedilol (Coreg) 6.25 mg BIDWMEALS PO Last administered on 09/27/20at 08:44; Start 09/26/20 at 17:00 Active Scripts Active Prednisone 20 Mg Tablet 1 Tab PO DAILY 5 Days Culturelle (Lactobacillus Rhamnosus Gg) 1 Each Cap.sprink 1 Cap PO BID 30 Days Enoxaparin Sodium 40 Mg/0.4 Ml Disp.syrin 40 Mg SQ DAILY 7 Days Amox Tr-K Clv 875-125 Mg Tab (Amoxicillin/Potassium Clav) 1 Each Tablet 1 Tab PO BID 3 Days Tramadol HCl ER (Tramadol HCl) 100 Mg Cpbp.25.75 50 Mg PO PRN Q6HRS PRN 6 Days FENTANYL 50mcg/hr (Fentanyl) 1 Each Patch.td72 1 Patch TD Q72H 30 Days Reported Novolog (Insulin Aspart) 100 Unit/1 Ml Cartridge 10 Unit SQ TID One-Daily Multi-Vitamin (Multivitamin) 1 Each Tablet 1 Tab PO DAILY 30 Days Metformin Hcl 1,000 Mg Tablet 1,000 Mg PO BIDWMEALS Acetaminophen 325 Mg Tablet 2 Tab PO PRN Q6HRS PRN 24 Days Nystatin 15 Gm Powder 15 Gm TP BID Losartan Potassium 100 Mg Tablet 100 Mg PO DAILY Loperamide (Loperamide Hcl) 2 Mg Tablet 2 Mg PO PRN Q4-6HRS Furosemide 20 Mg Tablet 1 Tab PO DAILY Lantus Solostar (Insulin Glargine,Hum.rec.anlog) 100 Unit/1 Ml Insuln.pen 25 Unit SQ QHS Hydralazine Hcl 50 Mg Tablet 1 Tab PO BID Carvedilol 25 Mg Tablet 25 Mg PO BIDWMEALS Colace (Docusate Sodium) 100 Mg Capsule 1 Cap PO BID 30 Days Clopidogrel (Clopidogrel Bisulfate) 75 Mg Tablet 1 Tab PO DAILY Atorvastatin Calcium 10 Mg Tablet 10 Mg PO HS Vitals/I & O Vital Sign - Last 24 Hours 09/26/20 09/26/20 09/26/20 09/26/20 11:00 15:00 17:25 20:00 Temp 98.7 98.6 98.7 98.6 Pulse 62 92 42 Resp 18 18 B/P (MAP) 143/77 (99) 144/83 (103) Pulse Ox 96 96 O2 Delivery Room Air Room Air Room Air 09/26/20 09/26/20 09/26/20 09/27/20 20:12 20:14 23:25 03:10 Temp 99.9 99.3 99.0 99.9 99.3 99.0 Pulse 67 67 60 62 Resp 20 18 18 B/P (MAP) 135/97 (110) 135/97 145/69 (94) 136/60 (85) Pulse Ox 99 99 100 O2 Delivery Room Air Room Air 09/27/20 09/27/20 09/27/20 09/27/20 07:59 08:00 08:43 08:44 Temp 99.6 99.6 Pulse 57 57 57 Resp 16 B/P (MAP) 134/63 (86) 134/63 134/63 Pulse Ox 95 O2 Delivery Room Air Room Air Intake and Output 09/26/20 09/26/20 09/27/20 15:00 23:00 07:00 Intake Total 550 ml 1390 ml Balance 550 ml 1390 ml Justicifation of Admission Dx: Justifications for Admission: Justification of Admission Dx: N/A LILY LOPEZ MD Sep 27, 2020 10:07
[2020-09-27 11:59] VITALS: BP 128/62
[2020-09-27] MEDS: cefTRIAXone IV Push 1 GM VIAL. IVP SCH (13:01)
--- NOTE | 2020-09-27 14:39 | PDOC ---
PROGRESS NOTES Date of Service DATE: 09/27/20 TIME: 14:38 Subjective Subjective SEEN IN FOLLOW UP OF ARF Objective Objective Vital Signs Date Time Temp Pulse Resp B/P (MAP) Pulse Ox O2 Delivery O2 Flow Rate FiO2 09/27/20 11:59 99.1 64 18 128/62 (84) 98 Room Air 99.1 Intake and Output 09/27/20 07:00 Intake Total 1940 ml Balance 1940 ml Intake Oral 940 ml IV Total 1000 ml # Voids 3 # Bowel Movements 3 Physical Exam Abdomen: Normal bowel sounds, Soft, No tenderness, No hepatosplenomegaly, No masses Heart: Regular rate, Normal S1, Normal S2, No murmurs, Gallops Extremities: No clubbing, No cyanosis, No edema, Normal pulses, No tenderness/swelling General: Alert, Oriented X3, Cooperative, No acute distress Lungs: Clear to auscultation, Normal air movement Psych/Mental Status: Mental status NL, Mood NL Diagnosis RENAL FAILURE: Acute (Acute tubular necrosis) Assessment Assessment Problems Medical Problems: (1) Acute renal insufficiency Status: Acute (2) UTI (urinary tract infection) Status: Acute Plan Plan of Care RENAL FUNCITON IS IMPROVING. SHE HAS CKD3 WITH BASELINE CREAT 1.8. CONT FLUID BALANCE Comment Review of Relevant I have reviewed the following items daniel (where applicable) has been applied. Labs Laboratory Tests Test 09/25/20 16:38 09/25/20 21:12 09/26/20 08:02 09/26/20 08:43 Glucose (Fingerstick) 292 mg/dL (70-99) 318 mg/dL (70-99) 135 mg/dL (70-99) Sodium Level 150 mmol/L (136-145) Potassium Level 4.1 mmol/L (3.5-5.1) Chloride Level 117 mmol/L (98-107) Carbon Dioxide Level 21 mmol/L (21-32) Anion Gap 12 (6-14) Blood Urea Nitrogen 69 mg/dL (7-20) Creatinine 2.4 mg/dL (0.6-1.0) Estimated GFR (Cockcroft-Gault) 24.1 Glucose Level 126 mg/dL (70-99) Calcium Level 9.9 mg/dL (8.5-10.1) Phosphorus Level 2.3 mg/dL (2.6-4.7) Albumin 3.0 g/dL (3.4-5.0) Test 09/26/20 11:49 09/26/20 17:10 09/26/20 21:06 09/27/20 07:00 Glucose (Fingerstick) 165 mg/dL (70-99) 266 mg/dL (70-99) 251 mg/dL (70-99) Sodium Level 145 mmol/L (136-145) Potassium Level 3.6 mmol/L (3.5-5.1) Chloride Level 113 mmol/L (98-107) Carbon Dioxide Level 19 mmol/L (21-32) Anion Gap 13 (6-14) Blood Urea Nitrogen 53 mg/dL (7-20) Creatinine 2.1 mg/dL (0.6-1.0) Estimated GFR (Cockcroft-Gault) 28.1 Glucose Level 123 mg/dL (70-99) Calcium Level 9.9 mg/dL (8.5-10.1) Phosphorus Level 2.2 mg/dL (2.6-4.7) Albumin 2.9 g/dL (3.4-5.0) Test 09/27/20 08:30 09/27/20 11:47 Glucose (Fingerstick) 140 mg/dL (70-99) 193 mg/dL (70-99) Laboratory Tests Test 09/26/20 17:10 09/26/20 21:06 09/27/20 07:00 09/27/20 08:30 Glucose (Fingerstick) 266 mg/dL (70-99) 251 mg/dL (70-99) 140 mg/dL (70-99) Sodium Level 145 mmol/L (136-145) Potassium Level 3.6 mmol/L (3.5-5.1) Chloride Level 113 mmol/L (98-107) Carbon Dioxide Level 19 mmol/L (21-32) Anion Gap 13 (6-14) Blood Urea Nitrogen 53 mg/dL (7-20) Creatinine 2.1 mg/dL (0.6-1.0) Estimated GFR (Cockcroft-Gault) 28.1 Glucose Level 123 mg/dL (70-99) Calcium Level 9.9 mg/dL (8.5-10.1) Phosphorus Level 2.2 mg/dL (2.6-4.7) Albumin 2.9 g/dL (3.4-5.0) Test 09/27/20 11:47 Glucose (Fingerstick) 193 mg/dL (70-99) Microbiology 09/23/20 Urine Culture - Final, Complete 09/23/20 Antimicrobic Susceptibility - Final, Complete Medications Current Medications Sodium Chloride 500 ml @ 500 mls/hr 1X ONCE IV Last administered on 09/23/20at 02:18; Start 09/23/20 at 02:15; Stop 09/23/20 at 03:14; Status DC Ondansetron HCl (Zofran) 4 mg PRN Q8HRS PRN IV NAUSEA/VOMITING Last administered on 09/23/20at 03:27; Start 09/23/20 at 02:45; Stop 09/24/20 at 02:44; Status DC Sodium Chloride 1,000 ml @ 100 mls/hr Q10H IV Last administered on 09/24/20at 01:59; Start 09/23/20 at 02:45; Stop 09/24/20 at 02:44; Status DC Ceftriaxone Sodium (Rocephin) 1 gm 1X ONCE IVP Last administered on 09/23/20at 03:22; Start 09/23/20 at 03:00; Stop 09/23/20 at 03:01; Status DC Atorvastatin Calcium (Lipitor) 10 mg HS PO Last administered on 09/26/20at 20:14; Start 09/23/20 at 21:00 Clopidogrel Bisulfate (Plavix) 75 mg DAILY PO Last administered on 09/27/20at 08:44; Start 09/23/20 at 12:00 Docusate Sodium (Colace) 100 mg BID PO Last administered on 09/27/20at 08:44; Start 09/23/20 at 12:00 Hydralazine HCl (Apresoline) 50 mg BID PO Last administered on 09/27/20at 08:43; Start 09/23/20 at 12:00 Lactobacillus Rhamnosus (Culturelle) 1 cap BID PO Last administered on 09/27/20at 08:43; Start 09/23/20 at 12:00 Nystatin (Nystop) 1 eros BID TP Last administered on 09/27/20at 08:45; Start 09/23/20 at 12:00 Prednisone (Prednisone) 20 mg DAILY PO Last administered on 09/27/20at 08:43; Start 09/23/20 at 12:00 Carvedilol (Coreg) 25 mg BIDWMEALS PO Last administered on 09/25/20at 18:50; Start 09/23/20 at 12:00; Stop 09/26/20 at 10:33; Status DC Insulin Human Lispro (HumaLOG) 10 units TIDWMEALS SQ Last administered on 09/27/20at 13:05; Start 09/23/20 at 12:00 Multivitamins (Thera M Plus) 1 tab DAILY PO Last administered on 09/27/20at 08:43; Start 09/23/20 at 12:00 Ceftriaxone Sodium (Rocephin) 1 gm Q24H IVP Last administered on 09/27/20at 13:01; Start 09/24/20 at 09:00 Sodium Chloride (Normal Saline Flush) 3 ml QSHIFT PRN IV AFTER MEDS AND BLOOD DRAWS; Start 09/23/20 at 15:45 Ondansetron HCl (Zofran) 4 mg PRN Q4HRS PRN IV NAUSEA/VOMITING; Start 09/23/20 at 15:45 Acetaminophen (Tylenol) 650 mg PRN Q4HRS PRN PO TEMP OVER 100.4F OR MILD PAIN Last administered on 09/26/20at 20:21; Start 09/23/20 at 15:45 Acetaminophen (Tylenol Supp) 650 mg PRN Q4HRS PRN NC TEMP OVER 100.4F OR MILD PAIN; Start 09/23/20 at 15:45 Al Hydroxide/Mg Hydroxide (Mylanta Plus Xs) 30 ml PRN DAILY PRN PO HEARTBURN / GAS; Start 09/23/20 at 15:45 Sodium Monofluorophosphate (Fleet Adult) 133 ml PRN DAILY PRN NC CONSTIPATION; Start 09/23/20 at 15:45 Docusate Sodium (Colace) 100 mg PRN BID PRN PO HARD STOOLS; Start 09/23/20 at 15:45 Albuterol Sulfate (Ventolin Neb Soln) 2.5 mg PRN Q4HRS PRN NEB SHORTNESS OF BREATH; Start 09/23/20 at 15:45 Guaifenesin (Robitussin) 200 mg PRN Q4HRS PRN PO COUGH; Start 09/23/20 at 15:45 Enoxaparin Sodium (Lovenox 40mg Syringe) 40 mg Q24H SQ Last administered on 09/26/20at 20:14; Start 09/23/20 at 21:00 Ascorbic Acid (Vitamin C) 500 mg DAILY PO Last administered on 09/26/20at 09:40; Start 09/24/20 at 12:00 Sodium Chloride 1,000 ml @ 75 mls/hr [id number] IV Last administered on 09/27/20at 02:08; Start 09/24/20 at 17:45 Carvedilol (Coreg) 12.5 mg BIDWMEALS PO ; Start 09/26/20 at 17:00; Stop 09/26/20 at 15:25; Status DC Carvedilol (Coreg) 6.25 mg BIDWMEALS PO Last administered on 09/27/20at 08:44; Start 09/26/20 at 17:00 Active Scripts Active Prednisone 20 Mg Tablet 1 Tab PO DAILY 5 Days Culturelle (Lactobacillus Rhamnosus Gg) 1 Each Cap.sprink 1 Cap PO BID 30 Days Enoxaparin Sodium 40 Mg/0.4 Ml Disp.syrin 40 Mg SQ DAILY 7 Days Amox Tr-K Clv 875-125 Mg Tab (Amoxicillin/Potassium Clav) 1 Each Tablet 1 Tab PO BID 3 Days Tramadol HCl ER (Tramadol HCl) 100 Mg Cpbp.25.75 50 Mg PO PRN Q6HRS PRN 6 Days FENTANYL 50mcg/hr (Fentanyl) 1 Each Patch.td72 1 Patch TD Q72H 30 Days Reported Novolog (Insulin Aspart) 100 Unit/1 Ml Cartridge 10 Unit SQ TID One-Daily Multi-Vitamin (Multivitamin) 1 Each Tablet 1 Tab PO DAILY 30 Days Metformin Hcl 1,000 Mg Tablet 1,000 Mg PO BIDWMEALS Acetaminophen 325 Mg Tablet 2 Tab PO PRN Q6HRS PRN 24 Days Nystatin 15 Gm Powder 15 Gm TP BID Losartan Potassium 100 Mg Tablet 100 Mg PO DAILY Loperamide (Loperamide Hcl) 2 Mg Tablet 2 Mg PO PRN Q4-6HRS Furosemide 20 Mg Tablet 1 Tab PO DAILY Lantus Solostar (Insulin Glargine,Hum.rec.anlog) 100 Unit/1 Ml Insuln.pen 25 Unit SQ QHS Hydralazine Hcl 50 Mg Tablet 1 Tab PO BID Carvedilol 25 Mg Tablet 25 Mg PO BIDWMEALS Colace (Docusate Sodium) 100 Mg Capsule 1 Cap PO BID 30 Days Clopidogrel (Clopidogrel Bisulfate) 75 Mg Tablet 1 Tab PO DAILY Atorvastatin Calcium 10 Mg Tablet 10 Mg PO HS Vitals/I & O Vital Sign - Last 24 Hours 09/26/20 09/26/20 09/26/20 09/26/20 15:00 17:25 20:00 20:12 Temp 98.6 99.9 98.6 99.9 Pulse 92 42 67 Resp 18 20 B/P (MAP) 144/83 (103) 135/97 (110) Pulse Ox 96 99 O2 Delivery Room Air Room Air Room Air 09/26/20 09/26/20 09/27/20 09/27/20 20:14 23:25 03:10 07:59 Temp 99.3 99.0 99.6 99.3 99.0 99.6 Pulse 67 60 62 57 Resp 18 18 16 B/P (MAP) 135/97 145/69 (94) 136/60 (85) 134/63 (86) Pulse Ox 99 100 95 O2 Delivery Room Air Room Air 09/27/20 09/27/20 09/27/20 09/27/20 08:00 08:43 08:44 11:59 Temp 99.1 99.1 Pulse 57 57 64 Resp 18 B/P (MAP) 134/63 134/63 128/62 (84) Pulse Ox 98 O2 Delivery Room Air Room Air Intake and Output 09/26/20 09/26/20 09/27/20 15:00 23:00 07:00 Intake Total 550 ml 1390 ml Balance 550 ml 1390 ml Justifications for Admission General Conditions Reduced urine output?: Yes Justification of admission: Patient has tachycardia (> 100 beats per minute) or hypotension (SBP < 90 mm Hg) leading to inadequate systemic perfusion as indicated by reduced urine output. JEVON Other Justification ANAYELI ROCHA MD Sep 27, 2020 14:39
[2020-09-27 15:59] VITALS: BP 141/80
[2020-09-27 19:00] VITALS: BP 143/84
[2020-09-27] MEDS ORDERED: SODIUM CHLORIDE 0.65% NASAL SPRAY 45ML BOTTLE. NS PRN (20:00)
[2020-09-27] MEDS: ATORVASTATIN CALCIUM 10 MG TABLET. PO SCH (21:36)
[2020-09-27] MEDS: ENOXAPARIN 40 MG/0.4 ML SYRINGE. SQ SCH (21:37)
[2020-09-27 23:00] VITALS: BP 160/79
[2020-09-28] MEDS: IV NORMAL SALINE 1000ML BAG 1,000 ML IV SCH ×2 (02:23→15:05)
[2020-09-28 03:00] VITALS: BP 160/83
[2020-09-28 07:59] VITALS: BP 143/85
[2020-09-28 08:36] LABS: ALBUMIN 2.9 g/dL (3.4-5.0); CALCIUM 9.1 mg/dL (8.5-10.1); CREATININE 1.9 mg/dL (0.6-1.0); GFR 31.5; POTASSIUM 3.6 mmol/L (3.5-5.1)
[2020-09-28] MEDS: CARVEDILOL 6.25 MG TABLET. PO SCH ×2 (08:52→17:58)
[2020-09-28] MEDS: LACTOBACILLUS RHAMNOSUS GG 1 CAPSULE. PO SCH ×2 (08:52→19:59)
[2020-09-28] MEDS: predniSONE 20 MG TABLET PO SCH (08:52)
[2020-09-28] MEDS: MULTIVITAMIN with MINERAL TABLET. PO SCH (08:53)
[2020-09-28] MEDS: ASCORBIC ACID 500 MG TABLET PO SCH (08:53)
[2020-09-28] MEDS: NYSTATIN TOPICAL POWDER 15GM BOTTLE. TP SCH ×2 (08:53→19:59)
[2020-09-28] MEDS: CLOPIDOGREL BISULFATE 75 MG TABLET PO SCH (08:53)
[2020-09-28] MEDS: INSULIN LISPRO 300 UNITS/3 ML VIAL. SQ SCH ×3 (08:59→18:02)
[2020-09-28] MEDS: DOCUSATE SODIUM 100 MG CAPSULE. PO SCH ×2 (09:00→19:59)
[2020-09-28] MEDS: cefTRIAXone IV Push 1 GM VIAL. IVP SCH (10:07)
--- NOTE | 2020-09-28 10:40 | PDOC ---
PROGRESS NOTES Date of Service: DATE: 09/28/20 TIME: 10:40 Chief Complaint Chief Complaint VTE Prophylaxis Ordered VTE Prophylaxis Devices: Yes VTE Pharmacological Prophylaxi: Yes Assessment/Plan Assessment/Plan IMPRESSION: Patchy opacities medial right lung base, possibly atelectasis. ACUTE RENAL INJURY, acute vasomotor nephropathy UTI - with confusion Pneumonia - likely COVID 19 related, RECOVERED Protein calorie malnutrition - moderate, Sepsis - H/o CVA with contractures - cont statin, ASA therapy DM2 - sliding scale insulin + basal bolus HLD - cont statin Anemia - likely of chronic disease CAD - stable, will cont meds H/o Gout - no pain complaints currently Sacral decubitus ulcer - stage I/II - local wound care uti PLAN ADMIT NEPHROLOGY CONSULT IV FLUID SUPPORT DVT PROPHYLAXIS IV ROCEPHIN 1 GM Q 24 HRS D/W RN cr slow to improve at 1.9 Justifications for Admission Other Justification History of Present Illness History of Present Illness Identification/Chief Complaint Chief Complaint SEEN IN ER WITH ACUTE RENAL INJURY 70 year old female who presents via EMS at 1 AM from nursing facility. Patient had labs drawn at 10 AM the previous day however resulted around midnight. She had some episodes of vomiting earlier which prompted the lab draw and a KUB. Labs showed her BUN and creatinine were elevated. Patient does not have a history of renal failure. Patient is alert oriented x2 and history was obtained from EMS and report from nursing facility. They state that her p.o. intake has been at 50% recently. Per chart review she was hospitalized with COVID-19 in April. 70yo F SNF resident w/ PMHx CVA with contractures, DM2, HLD, Anemia, CAD, Gout who presents to ED via [facility] from SNF for worsening mental status POOR INTAKE She was recently diagnosed with COVID19 on 04/18/2020 and was doing well TODAY Past Medical History Cardiovascular: HTN, Hyperlipidemia CENTRAL NERVOUS SYSTEM: CVA Rheumatologic: Gout Endocrine: Diabetes Past Surgical History Past Surgical History: No pertinent history Family History Family History: Hypertension, Family History Unknown Social History Smoke: No ALCOHOL: none Drugs: None Current Problem List Problem List Problems Medical Problems: (1) Acute renal insufficiency Status: Acute (2) UTI (urinary tract infection) Status: Acute Vitals Vitals Vital Signs Date Time Temp Pulse Resp B/P (MAP) Pulse Ox O2 Delivery O2 Flow Rate FiO2 09/28/20 08:52 47 143/85 09/28/20 08:00 Room Air 09/28/20 07:59 98.6 16 99 98.6 Physical Exam Physical Exam Physical Exam General: Alert, Oriented X3, Cooperative, No acute distress Lungs: Clear to auscultation, Normal air movement Heart: RRR Breasts: Not examined Abdomen: Normal bowel sounds, Soft PELVIC: Examination not indicated Extremities: No cyanosis Neuro: Normal speech, Sensation intact, Cranial nerves 3-12 NL Psych/Mental Status: Mental status NL, Mood NL General: Alert, Oriented X3, Cooperative, No acute distress Heart: Regular rate, Normal S1, Normal S2, No murmurs, Gallops Lungs: Clear Abdomen: Normal bowel sounds, Soft, No tenderness, No hepatosplenomegaly, No masses Extremities: No clubbing, No cyanosis, No edema, Normal pulses, No tenderness/swelling Skin: Other (sacral ulcer) Labs LABS Procedure Result URINE CULTURE Final Final GREATER THAN 100,000 CFU/ML GRAM NEGATIVE RODS on 09/24/20 at 0720 FINAL ID= [PROTEUS MIRABILIS] Testing Performed by: [address] [address] For Inquires, the Physician may contact the Microbiology department at [phone] PROTEUS MIRABILIS ANTIMICROBIAL SUSCEPTIBILITY Final Comment NEG FREDDY 56 PROTEUS MIRABILIS ANTIBIOTIC RESULT INTERPRETATION AMPICILLIN/SULBACTAM >16/8 R AMIKACIN <=16 S AMPICILLIN >16 R AMOXICILLIN/K CLAVULANATE <=8/4 S AZTREONAM <=4 S CEFTRIAXONE <=1 S CEFTAZIDIME <=1 S CEFOTAXIME <=2 S CEFOXITIN <=8 S CIPROFLOXACIN >2 R CEFEPIME <=2 S CEFUROXIME <=4 S CEFTAZIDIME/AVIBACTAM <=4 S ERTAPENEM <=0.5 S NITROFURANTOIN >64 R* GENTAMICIN <=2 S LEVOFLOXACIN >4 R MEROPENEM <=1 S PIPERACILLIN/TAZOBACTAM <=8 S TRIMETHOPRIM/SULFAMETHOXAZOLE >2/38 R TETRACYCLINE >8 R TOBRAMYCIN <=2 S Unless otherwise specified, Testing Performed by: Laboratory Tests Test 09/27/20 11:47 09/27/20 16:09 09/27/20 22:04 09/28/20 07:50 Glucose (Fingerstick) 193 mg/dL (70-99) 299 mg/dL (70-99) 224 mg/dL (70-99) Sodium Level 145 mmol/L (136-145) Potassium Level 3.6 mmol/L (3.5-5.1) Chloride Level 111 mmol/L (98-107) Carbon Dioxide Level 20 mmol/L (21-32) Anion Gap 14 (6-14) Blood Urea Nitrogen 42 mg/dL (7-20) Creatinine 1.9 mg/dL (0.6-1.0) Estimated GFR (Cockcroft-Gault) 31.5 Glucose Level 115 mg/dL (70-99) Calcium Level 9.1 mg/dL (8.5-10.1) Phosphorus Level 2.0 mg/dL (2.6-4.7) Albumin 2.9 g/dL (3.4-5.0) Test 09/28/20 08:09 Glucose (Fingerstick) 118 mg/dL (70-99) Assessment and Plan Assessmemt and Plan Problems Medical Problems: (1) Acute renal insufficiency Status: Acute (2) UTI (urinary tract infection) Status: Acute Comment Review of Relevant I have reviewed the following items daniel (where applicable) has been applied. Labs Laboratory Tests Test 09/26/20 11:49 09/26/20 17:10 09/26/20 21:06 09/27/20 07:00 Glucose (Fingerstick) 165 mg/dL (70-99) 266 mg/dL (70-99) 251 mg/dL (70-99) Sodium Level 145 mmol/L (136-145) Potassium Level 3.6 mmol/L (3.5-5.1) Chloride Level 113 mmol/L (98-107) Carbon Dioxide Level 19 mmol/L (21-32) Anion Gap 13 (6-14) Blood Urea Nitrogen 53 mg/dL (7-20) Creatinine 2.1 mg/dL (0.6-1.0) Estimated GFR (Cockcroft-Gault) 28.1 Glucose Level 123 mg/dL (70-99) Calcium Level 9.9 mg/dL (8.5-10.1) Phosphorus Level 2.2 mg/dL (2.6-4.7) Albumin 2.9 g/dL (3.4-5.0) Test 09/27/20 08:30 09/27/20 11:47 09/27/20 16:09 09/27/20 22:04 Glucose (Fingerstick) 140 mg/dL (70-99) 193 mg/dL (70-99) 299 mg/dL (70-99) 224 mg/dL (70-99) Test 09/28/20 07:50 09/28/20 08:09 Sodium Level 145 mmol/L (136-145) Potassium Level 3.6 mmol/L (3.5-5.1) Chloride Level 111 mmol/L (98-107) Carbon Dioxide Level 20 mmol/L (21-32) Anion Gap 14 (6-14) Blood Urea Nitrogen 42 mg/dL (7-20) Creatinine 1.9 mg/dL (0.6-1.0) Estimated GFR (Cockcroft-Gault) 31.5 Glucose Level 115 mg/dL (70-99) Calcium Level 9.1 mg/dL (8.5-10.1) Phosphorus Level 2.0 mg/dL (2.6-4.7) Albumin 2.9 g/dL (3.4-5.0) Glucose (Fingerstick) 118 mg/dL (70-99) Laboratory Tests Test 09/27/20 11:47 09/27/20 16:09 09/27/20 22:04 09/28/20 07:50 Glucose (Fingerstick) 193 mg/dL (70-99) 299 mg/dL (70-99) 224 mg/dL (70-99) Sodium Level 145 mmol/L (136-145) Potassium Level 3.6 mmol/L (3.5-5.1) Chloride Level 111 mmol/L (98-107) Carbon Dioxide Level 20 mmol/L (21-32) Anion Gap 14 (6-14) Blood Urea Nitrogen 42 mg/dL (7-20) Creatinine 1.9 mg/dL (0.6-1.0) Estimated GFR (Cockcroft-Gault) 31.5 Glucose Level 115 mg/dL (70-99) Calcium Level 9.1 mg/dL (8.5-10.1) Phosphorus Level 2.0 mg/dL (2.6-4.7) Albumin 2.9 g/dL (3.4-5.0) Test 09/28/20 08:09 Glucose (Fingerstick) 118 mg/dL (70-99) Microbiology 09/23/20 Urine Culture - Final, Complete 09/23/20 Antimicrobic Susceptibility - Final, Complete Medications Current Medications Sodium Chloride 500 ml @ 500 mls/hr 1X ONCE IV Last administered on 09/23/20at 02:18; Start 09/23/20 at 02:15; Stop 09/23/20 at 03:14; Status DC Ondansetron HCl (Zofran) 4 mg PRN Q8HRS PRN IV NAUSEA/VOMITING Last administered on 09/23/20at 03:27; Start 09/23/20 at 02:45; Stop 09/24/20 at 02:44; Status DC Sodium Chloride 1,000 ml @ 100 mls/hr Q10H IV Last administered on 09/24/20at 01:59; Start 09/23/20 at 02:45; Stop 09/24/20 at 02:44; Status DC Ceftriaxone Sodium (Rocephin) 1 gm 1X ONCE IVP Last administered on 09/23/20at 03:22; Start 09/23/20 at 03:00; Stop 09/23/20 at 03:01; Status DC Atorvastatin Calcium (Lipitor) 10 mg HS PO Last administered on 09/27/20at 21:36; Start 09/23/20 at 21:00 Clopidogrel Bisulfate (Plavix) 75 mg DAILY PO Last administered on 09/28/20at 08:53; Start 09/23/20 at 12:00 Docusate Sodium (Colace) 100 mg BID PO Last administered on 09/27/20at 21:36; Start 09/23/20 at 12:00 Hydralazine HCl (Apresoline) 50 mg BID PO Last administered on 09/28/20at 08:52; Start 09/23/20 at 12:00 Lactobacillus Rhamnosus (Culturelle) 1 cap BID PO Last administered on 09/28/20at 08:52; Start 09/23/20 at 12:00 Nystatin (Nystop) 1 eros BID TP Last administered on 09/28/20at 08:53; Start 09/23/20 at 12:00 Prednisone (Prednisone) 20 mg DAILY PO Last administered on 09/28/20at 08:52; Start 09/23/20 at 12:00 Carvedilol (Coreg) 25 mg BIDWMEALS PO Last administered on 09/25/20at 18:50; Start 09/23/20 at 12:00; Stop 09/26/20 at 10:33; Status DC Insulin Human Lispro (HumaLOG) 10 units TIDWMEALS SQ Last administered on 09/28/20at 08:59; Start 09/23/20 at 12:00 Multivitamins (Thera M Plus) 1 tab DAILY PO Last administered on 09/28/20at 08:53; Start 09/23/20 at 12:00 Ceftriaxone Sodium (Rocephin) 1 gm Q24H IVP Last administered on 09/28/20at 10 :07; Start 09/24/20 at 09:00 Sodium Chloride (Normal Saline Flush) 3 ml QSHIFT PRN IV AFTER MEDS AND BLOOD DRAWS; Start 09/23/20 at 15:45 Ondansetron HCl (Zofran) 4 mg PRN Q4HRS PRN IV NAUSEA/VOMITING; Start 09/23/20 at 15:45 Acetaminophen (Tylenol) 650 mg PRN Q4HRS PRN PO TEMP OVER 100.4F OR MILD PAIN Last administered on 09/26/20at 20:21; Start 09/23/20 at 15:45 Acetaminophen (Tylenol Supp) 650 mg PRN Q4HRS PRN WA TEMP OVER 100.4F OR MILD PAIN; Start 09/23/20 at 15:45 Al Hydroxide/Mg Hydroxide (Mylanta Plus Xs) 30 ml PRN DAILY PRN PO HEARTBURN / GAS; Start 09/23/20 at 15:45 Sodium Monofluorophosphate (Fleet Adult) 133 ml PRN DAILY PRN WA CONSTIPATION; Start 09/23/20 at 15:45 Docusate Sodium (Colace) 100 mg PRN BID PRN PO HARD STOOLS; Start 09/23/20 at 15:45 Albuterol Sulfate (Ventolin Neb Soln) 2.5 mg PRN Q4HRS PRN NEB SHORTNESS OF BREATH; Start 09/23/20 at 15:45 Guaifenesin (Robitussin) 200 mg PRN Q4HRS PRN PO COUGH; Start 09/23/20 at 15:45 Enoxaparin Sodium (Lovenox 40mg Syringe) 40 mg Q24H SQ Last administered on 09/27/20at 21:37; Start 09/23/20 at 21:00 Ascorbic Acid (Vitamin C) 500 mg DAILY PO Last administered on 09/28/20at 08:53; Start 09/24/20 at 12:00 Sodium Chloride 1,000 ml @ 75 mls/hr [id number] IV Last administered on 09/28/20at 02:23; Start 09/24/20 at 17:45 Carvedilol (Coreg) 12.5 mg BIDWMEALS PO ; Start 09/26/20 at 17:00; Stop 09/26/20 at 15:25; Status DC Carvedilol (Coreg) 6.25 mg BIDWMEALS PO Last administered on 09/28/20at 08:52; Start 09/26/20 at 17:00 Sodium Chloride (Saline Mist Nasal) 1 eros PRN Q1HR PRN NS NASAL CONGESTION Last administered on 09/27/20at 21:37; Start 09/27/20 at 20:00 Active Scripts Active Prednisone 20 Mg Tablet 1 Tab PO DAILY 5 Days Culturelle (Lactobacillus Rhamnosus Gg) 1 Each Cap.sprink 1 Cap PO BID 30 Days Enoxaparin Sodium 40 Mg/0.4 Ml Disp.syrin 40 Mg SQ DAILY 7 Days Amox Tr-K Clv 875-125 Mg Tab (Amoxicillin/Potassium Clav) 1 Each Tablet 1 Tab PO BID 3 Days Tramadol HCl ER (Tramadol HCl) 100 Mg Cpbp.25.75 50 Mg PO PRN Q6HRS PRN 6 Days FENTANYL 50mcg/hr (Fentanyl) 1 Each Patch.td72 1 Patch TD Q72H 30 Days Reported Novolog (Insulin Aspart) 100 Unit/1 Ml Cartridge 10 Unit SQ TID One-Daily Multi-Vitamin (Multivitamin) 1 Each Tablet 1 Tab PO DAILY 30 Days Metformin Hcl 1,000 Mg Tablet 1,000 Mg PO BIDWMEALS Acetaminophen 325 Mg Tablet 2 Tab PO PRN Q6HRS PRN 24 Days Nystatin 15 Gm Powder 15 Gm TP BID Losartan Potassium 100 Mg Tablet 100 Mg PO DAILY Loperamide (Loperamide Hcl) 2 Mg Tablet 2 Mg PO PRN Q4-6HRS Furosemide 20 Mg Tablet 1 Tab PO DAILY Lantus Solostar (Insulin Glargine,Hum.rec.anlog) 100 Unit/1 Ml Insuln.pen 25 Unit SQ QHS Hydralazine Hcl 50 Mg Tablet 1 Tab PO BID Carvedilol 25 Mg Tablet 25 Mg PO BIDWMEALS Colace (Docusate Sodium) 100 Mg Capsule 1 Cap PO BID 30 Days Clopidogrel (Clopidogrel Bisulfate) 75 Mg Tablet 1 Tab PO DAILY Atorvastatin Calcium 10 Mg Tablet 10 Mg PO HS Vitals/I & O Vital Sign - Last 24 Hours 09/27/20 09/27/20 09/27/20 09/27/20 11:59 15:59 17:36 19:00 Temp 99.1 100.1 99.0 99.1 100.1 99.0 Pulse 64 95 95 92 Resp 18 18 18 B/P (MAP) 128/62 (84) 141/80 (100) 141/80 143/84 (103) Pulse Ox 98 96 96 O2 Delivery Room Air Room Air Room Air 09/27/20 09/27/20 09/27/20 09/28/20 20:00 21:36 23:00 03:00 Temp 99.3 99.1 99.3 99.1 Pulse 92 72 61 Resp 18 18 B/P (MAP) 143/84 160/79 (106) 160/83 (108) Pulse Ox 97 98 O2 Delivery Room Air Room Air Room Air 09/28/20 09/28/20 09/28/20 09/28/20 07:46 07:59 08:00 08:52 Temp 98.6 98.6 Pulse 47 47 Resp 16 B/P (MAP) 143/85 (104) 143/85 Pulse Ox 97 99 O2 Delivery Room Air Room Air Room Air 09/28/20 08:52 Pulse 47 B/P (MAP) 143/85 Intake and Output 09/27/20 09/27/20 09/28/20 15:00 23:00 07:00 Intake Total 237 ml 0 ml Output Total 900 ml Balance -663 ml 0 ml Justicifation of Admission Dx: Justifications for Admission: Justification of Admission Dx: N/A LILY LOPEZ MD Sep 28, 2020 10:40
[2020-09-28 11:59] VITALS: BP 146/75
[2020-09-28 15:59] VITALS: BP 153/70
[2020-09-28 19:00] VITALS: BP 165/83
[2020-09-28] MEDS: ENOXAPARIN 40 MG/0.4 ML SYRINGE. SQ SCH (19:58)
[2020-09-28] MEDS: ATORVASTATIN CALCIUM 10 MG TABLET. PO SCH (19:59)
[2020-09-28 23:00] VITALS: BP 155/83
[2020-09-29 03:00] VITALS: BP 163/76
[2020-09-29] MEDS: IV NORMAL SALINE 1000ML BAG 1,000 ML IV SCH (05:37)
[2020-09-29 07:00] VITALS: BP 162/73
[2020-09-29 07:23] LABS: BASO % 0 % (0-3); EOS # 0.2 x10^3/uL (0.0-0.7); EOS % 2 % (0-3); HEMATOCRIT 27.5 % (36.0-47.0); HEMOGLOBIN 9.2 g/dL (12.0-15.5); LYMPH # 2.1 x10^3/uL (1.0-4.8); LYMPH % 17 % (24-48); MEAN CORPUSCULAR HEMOGLOBIN 28 pg (25-35); MEAN CORPUSCULAR HGB CONC 33 g/dL (31-37); MEAN CORPUSCULAR VOLUME 85 fL (79-100); MONO # 0.8 x10^3/uL (0.0-1.1); MONO % 7 % (0-9); NEUT # 9.1 x10^3/uL (1.8-7.7); NEUT % 75 % (31-73); PLATELET COUNT 244 x10^3/uL (140-400); RED BLOOD COUNT 3.24 x10^6/uL (3.50-5.40); RED CELL DISTRIBUTION WIDTH 13.6 % (11.5-14.5); WHITE BLOOD COUNT 12.2 x10^3/uL (4.0-11.0)
[2020-09-29 07:52] LABS: ALBUMIN 3.1 g/dL (3.4-5.0); CALCIUM 9.4 mg/dL (8.5-10.1); CREATININE 1.7 mg/dL (0.6-1.0); GFR 35.9; PHOSPHORUS 2.2 mg/dL (2.6-4.7); POTASSIUM 3.4 mmol/L (3.5-5.1)
[2020-09-29] MEDS: INSULIN LISPRO 300 UNITS/3 ML VIAL. SQ SCH ×2 (08:00→12:43)
--- NOTE | 2020-09-29 08:46 | PDOC ---
[facility] PROGRESS NOTE Date of Service DOS: DATE: 09/29/20 TIME: 08:40 Chief Complaint Chief Complaint VTE Prophylaxis Ordered VTE Prophylaxis Devices: Yes VTE Pharmacological Prophylaxi: Yes Assessment/Plan Assessment/Plan IMPRESSION: Patchy opacities medial right lung base, possibly atelectasis. ACUTE RENAL INJURY, acute vasomotor nephropathy UTI - with confusion Pneumonia - likely COVID 19 related, RECOVERED Protein calorie malnutrition - moderate, Sepsis - H/o CVA with contractures - cont statin, ASA therapy DM2 - sliding scale insulin + basal bolus HLD - cont statin Anemia - likely of chronic disease CAD - stable, will cont meds H/o Gout - no pain complaints currently Sacral decubitus ulcer - stage I/II - local wound care uti PLAN ADMIT NEPHROLOGY CONSULT IV FLUID SUPPORT DVT PROPHYLAXIS IV ROCEPHIN 1 GM Q 24 HRS D/W RN Justifications for Admission Other Justification History of Present Illness History of Present Illness SEEN IN ER WITH ACUTE RENAL INJURY 70 year old female who presents via EMS at 1 AM from nursing facility. Patient had labs drawn at 10 AM the previous day however resulted around midnight. She had some episodes of vomiting earlier which prompted the lab draw and a KUB. Labs showed her BUN and creatinine were elevated. Patient does not have a history of renal failure. Patient is alert oriented x2 and history was obtained from EMS and report from nursing facility. They state that her p.o. intake has been at 50% recently. Per chart review she was hospitalized with COVID-19 in April. 70yo F SNF resident w/ PMHx CVA with contractures, DM2, HLD, Anemia, CAD, Gout who presents to ED via [facility] from SNF for worsening mental status POOR INTAKE She was recently diagnosed with COVID19 on 04/18/2020 and was doing well TODAY 09/29: Patient seen and evaluated. Afebrile, without complaints today. She completed Rocephin for UTI. Kidney function continues to improve and appears to be at baseline. Encourage continued p.o. intake. Greater than 30 minutes was spent managing discharge this patient. Vitals/I&O Vitals/I&O: Vital Signs Date Time Temp Pulse Resp B/P (MAP) Pulse Ox O2 Delivery O2 Flow Rate FiO2 09/29/20 07:00 99.0 68 17 162/73 (102) 98 Room Air 99.0 I & O 09/28/20 09/28/20 09/29/20 15:00 23:00 07:00 Intake Total 100 ml 1020 ml Balance 100 ml 1020 ml Physical Exam Physical Exam: Physical Exam General: Alert, Oriented X3, Cooperative, No acute distress Lungs: Clear to auscultation, Normal air movement Heart: RRR Breasts: Not examined Abdomen: Normal bowel sounds, Soft PELVIC: Examination not indicated Extremities: No cyanosis Neuro: Normal speech, Sensation intact, Cranial nerves 3-12 NL Psych/Mental Status: Mental status NL, Mood NL General: Alert, Oriented X3, Cooperative, No acute distress Heart: Regular rate, Normal S1, Normal S2, No murmurs, Gallops Lungs: Clear Abdomen: Normal bowel sounds, Soft, No tenderness, No hepatosplenomegaly, No masses Extremities: No clubbing, No cyanosis, No edema, Normal pulses, No tenderness/swelling Skin: Other (sacral ulcer) Labs Labs: Laboratory Tests Test 09/28/20 12:00 09/28/20 17:08 09/28/20 19:46 09/29/20 06:10 Glucose (Fingerstick) 106 mg/dL (70-99) 238 mg/dL (70-99) 212 mg/dL (70-99) White Blood Count 12.2 x10^3/uL (4.0-11.0) Red Blood Count 3.24 x10^6/uL (3.50-5.40) Hemoglobin 9.2 g/dL (12.0-15.5) Hematocrit 27.5 % (36.0-47.0) Mean Corpuscular Volume 85 fL (79-100) Mean Corpuscular Hemoglobin 28 pg (25-35) Mean Corpuscular Hemoglobin Concent 33 g/dL (31-37) Red Cell Distribution Width 13.6 % (11.5-14.5) Platelet Count 244 x10^3/uL (140-400) Neutrophils (%) (Auto) 75 % (31-73) Lymphocytes (%) (Auto) 17 % (24-48) Monocytes (%) (Auto) 7 % (0-9) Eosinophils (%) (Auto) 2 % (0-3) Basophils (%) (Auto) 0 % (0-3) Neutrophils # (Auto) 9.1 x10^3/uL (1.8-7.7) Lymphocytes # (Auto) 2.1 x10^3/uL (1.0-4.8) Monocytes # (Auto) 0.8 x10^3/uL (0.0-1.1) Eosinophils # (Auto) 0.2 x10^3/uL (0.0-0.7) Basophils # (Auto) 0.0 x10^3/uL (0.0-0.2) Sodium Level 145 mmol/L (136-145) Potassium Level 3.4 mmol/L (3.5-5.1) Chloride Level 111 mmol/L (98-107) Carbon Dioxide Level 23 mmol/L (21-32) Anion Gap 11 (6-14) Blood Urea Nitrogen 34 mg/dL (7-20) Creatinine 1.7 mg/dL (0.6-1.0) Estimated GFR (Cockcroft-Gault) 35.9 Glucose Level 128 mg/dL (70-99) Calcium Level 9.4 mg/dL (8.5-10.1) Phosphorus Level 2.2 mg/dL (2.6-4.7) Albumin 3.1 g/dL (3.4-5.0) Test 09/29/20 07:21 Glucose (Fingerstick) 130 mg/dL (70-99) Assessment and Plan Assessmemt and Plan Problems Medical Problems: (1) Acute renal insufficiency Status: Acute (2) UTI (urinary tract infection) Status: Acute Comment Review of Relevant I have reviewed the following items daniel (where applicable) has been applied. Justifications for Admission General Conditions Reduced urine output?: Yes Justification of admission: Patient has tachycardia (> 100 beats per minute) or hypotension (SBP < 90 mm Hg) leading to inadequate systemic perfusion as indicated by reduced urine output. JEVON Other Justification ROMARIO BAR MD Sep 29, 2020 08:46
[2020-09-29] MEDS: ASCORBIC ACID 500 MG TABLET PO SCH (08:55)
[2020-09-29] MEDS: DOCUSATE SODIUM 100 MG CAPSULE. PO SCH (08:56)
[2020-09-29] MEDS: predniSONE 20 MG TABLET PO SCH (08:56)
[2020-09-29] MEDS: MULTIVITAMIN with MINERAL TABLET. PO SCH (08:56)
[2020-09-29] MEDS: LACTOBACILLUS RHAMNOSUS GG 1 CAPSULE. PO SCH (08:56)
[2020-09-29] MEDS: CLOPIDOGREL BISULFATE 75 MG TABLET PO SCH (08:56)
[2020-09-29] MEDS: CARVEDILOL 6.25 MG TABLET. PO SCH (08:56)
[2020-09-29] MEDS: NYSTATIN TOPICAL POWDER 15GM BOTTLE. TP SCH (08:57)
[2020-09-29] MEDS ORDERED: CARV6.2511 PO (09:13)
--- NOTE | 2020-09-29 09:17 | PDOC3 ---
Discharge Summary Visit Information Date of Admission: Sep 23, 2020 Date of Discharge: Sep 29, 2020 Final Diagnosis Problems Medical Problems: (1) Acute renal insufficiency Status: Acute (2) UTI (urinary tract infection) Status: Acute Brief Hospital Course Allergies Allergies Coded Allergies Type Severity Reaction Last Updated Verified No Known Drug Allergies 04/28/20 No Vital Signs Vital Signs Date Time Temp Pulse Resp B/P (MAP) Pulse Ox O2 Delivery O2 Flow Rate FiO2 09/29/20 08:56 68 162/73 09/29/20 07:00 99.0 17 98 Room Air 99.0 Lab Results Laboratory Tests Test 09/27/20 11:47 09/27/20 16:09 09/27/20 22:04 09/28/20 07:50 Glucose (Fingerstick) 193 mg/dL (70-99) 299 mg/dL (70-99) 224 mg/dL (70-99) Sodium Level 145 mmol/L (136-145) Potassium Level 3.6 mmol/L (3.5-5.1) Chloride Level 111 mmol/L (98-107) Carbon Dioxide Level 20 mmol/L (21-32) Anion Gap 14 (6-14) Blood Urea Nitrogen 42 mg/dL (7-20) Creatinine 1.9 mg/dL (0.6-1.0) Estimated GFR (Cockcroft-Gault) 31.5 Glucose Level 115 mg/dL (70-99) Calcium Level 9.1 mg/dL (8.5-10.1) Phosphorus Level 2.0 mg/dL (2.6-4.7) Albumin 2.9 g/dL (3.4-5.0) Test 09/28/20 08:09 09/28/20 12:00 09/28/20 17:08 09/28/20 19:46 Glucose (Fingerstick) 118 mg/dL (70-99) 106 mg/dL (70-99) 238 mg/dL (70-99) 212 mg/dL (70-99) Test 09/29/20 06:10 09/29/20 07:21 White Blood Count 12.2 x10^3/uL (4.0-11.0) Red Blood Count 3.24 x10^6/uL (3.50-5.40) Hemoglobin 9.2 g/dL (12.0-15.5) Hematocrit 27.5 % (36.0-47.0) Mean Corpuscular Volume 85 fL (79-100) Mean Corpuscular Hemoglobin 28 pg (25-35) Mean Corpuscular Hemoglobin Concent 33 g/dL (31-37) Red Cell Distribution Width 13.6 % (11.5-14.5) Platelet Count 244 x10^3/uL (140-400) Neutrophils (%) (Auto) 75 % (31-73) Lymphocytes (%) (Auto) 17 % (24-48) Monocytes (%) (Auto) 7 % (0-9) Eosinophils (%) (Auto) 2 % (0-3) Basophils (%) (Auto) 0 % (0-3) Neutrophils # (Auto) 9.1 x10^3/uL (1.8-7.7) Lymphocytes # (Auto) 2.1 x10^3/uL (1.0-4.8) Monocytes # (Auto) 0.8 x10^3/uL (0.0-1.1) Eosinophils # (Auto) 0.2 x10^3/uL (0.0-0.7) Basophils # (Auto) 0.0 x10^3/uL (0.0-0.2) Sodium Level 145 mmol/L (136-145) Potassium Level 3.4 mmol/L (3.5-5.1) Chloride Level 111 mmol/L (98-107) Carbon Dioxide Level 23 mmol/L (21-32) Anion Gap 11 (6-14) Blood Urea Nitrogen 34 mg/dL (7-20) Creatinine 1.7 mg/dL (0.6-1.0) Estimated GFR (Cockcroft-Gault) 35.9 Glucose Level 128 mg/dL (70-99) Calcium Level 9.4 mg/dL (8.5-10.1) Phosphorus Level 2.2 mg/dL (2.6-4.7) Albumin 3.1 g/dL (3.4-5.0) Glucose (Fingerstick) 130 mg/dL (70-99) Laboratory Tests Test 09/28/20 12:00 09/28/20 17:08 09/28/20 19:46 09/29/20 06:10 Glucose (Fingerstick) 106 mg/dL (70-99) 238 mg/dL (70-99) 212 mg/dL (70-99) White Blood Count 12.2 x10^3/uL (4.0-11.0) Red Blood Count 3.24 x10^6/uL (3.50-5.40) Hemoglobin 9.2 g/dL (12.0-15.5) Hematocrit 27.5 % (36.0-47.0) Mean Corpuscular Volume 85 fL (79-100) Mean Corpuscular Hemoglobin 28 pg (25-35) Mean Corpuscular Hemoglobin Concent 33 g/dL (31-37) Red Cell Distribution Width 13.6 % (11.5-14.5) Platelet Count 244 x10^3/uL (140-400) Neutrophils (%) (Auto) 75 % (31-73) Lymphocytes (%) (Auto) 17 % (24-48) Monocytes (%) (Auto) 7 % (0-9) Eosinophils (%) (Auto) 2 % (0-3) Basophils (%) (Auto) 0 % (0-3) Neutrophils # (Auto) 9.1 x10^3/uL (1.8-7.7) Lymphocytes # (Auto) 2.1 x10^3/uL (1.0-4.8) Monocytes # (Auto) 0.8 x10^3/uL (0.0-1.1) Eosinophils # (Auto) 0.2 x10^3/uL (0.0-0.7) Basophils # (Auto) 0.0 x10^3/uL (0.0-0.2) Sodium Level 145 mmol/L (136-145) Potassium Level 3.4 mmol/L (3.5-5.1) Chloride Level 111 mmol/L (98-107) Carbon Dioxide Level 23 mmol/L (21-32) Anion Gap 11 (6-14) Blood Urea Nitrogen 34 mg/dL (7-20) Creatinine 1.7 mg/dL (0.6-1.0) Estimated GFR (Cockcroft-Gault) 35.9 Glucose Level 128 mg/dL (70-99) Calcium Level 9.4 mg/dL (8.5-10.1) Phosphorus Level 2.2 mg/dL (2.6-4.7) Albumin 3.1 g/dL (3.4-5.0) Test 09/29/20 07:21 Glucose (Fingerstick) 130 mg/dL (70-99) Brief Hospital Course Ms. Vu is a 70 old female who presented with JEVON, UTI. Consultation placed to nephrology. She received IV fluids, and nephrotoxins were held. She was treated with IV Rocephin daily. Due to some bradycardia her Coreg was decreased to 6.25 mg twice daily. Patient kidney function improved to her baseline, she was without complaint and stable for discharge on 09/29/2020. Discharge Information Condition at Discharge: Improved Follow Up: Weeks Disposition/Orders: D/C to Another Facility Scheduled Atorvastatin Calcium (Atorvastatin Calcium) 10 Mg Tablet, 10 MG PO HS for FOR CHOLESTEROL, #30 Ref 0 (Reported) Entered as Reported by: SUMIT CORONA RN on 04/28/201737 Last Action: Continued on 09/23/201058 by ILLY LOPEZ MD Carvedilol (Carvedilol ) 6.25 Mg Tablet, 6.25 MG PO BIDWMEALS for CAD, #60 Ref 1 Prescribed by: ROMARIO BAR MD on 09/29/20 0913 Clopidogrel Bisulfate (Clopidogrel) 75 Mg Tablet, 1 TAB PO DAILY for Anticoag, #90 Ref 1 (Reported) Entered as Reported by: SUMIT CORONA RN on 04/28/201737 Last Action: Continued on 09/23/20 105 by LILY LOPEZ MD Docusate Sodium (Colace) 100 Mg Capsule, 1 CAP PO BID for constipation for 30 Days, #60 Ref 0 (Reported) Entered as Reported by: SUMIT CORONA RN on 04/28/201737 Last Action: Continued on 09/23/20 105 by LILY LOPEZ MD Fentanyl (FENTANYL 50mcg/hr) 1 Each Patch.td72, 1 PATCH TD Q72H for Pain for 30 Days, #10 Prescribed by: HOWIE CHAPMAN MD on 05/01/20 1333 Last Action: HELD on 09/23/201058 by LILY LOPEZ MD Furosemide (Furosemide) 20 Mg Tablet, 1 TAB PO DAILY for CHF, #90 Ref 1 (Reported) Entered as Reported by: SUMIT CORONA RN on 04/28/201737 Last Action: HELD on 09/23/201058 by LILY LOPEZ MD Hydralazine Hcl (Hydralazine Hcl) 50 Mg Tablet, 1 TAB PO BID for HTN, #180 Ref 3 (Reported) Entered as Reported by: SUMIT CORONA RN on 04/28/201737 Last Action: Continued on 09/23/201058 by LILY LOPEZ MD Insulin Aspart (Novolog) 100 Unit/1 Ml Cartridge, 10 UNIT SQ TID, (Reported) Entered as Reported by: NIMCO ABREU on 09/23/20 0747 Last Action: Converted on 09/23/20 1100 by LILY LOPEZ MD Insulin Glargine,Hum.rec.anlog (Lantus Solostar) 100 Unit/1 Ml Insuln.pen, 25 UNIT SQ QHS for DM, #15 Ref 5 (Reported) Entered as Reported by: SUMIT CORONA RN on 04/28/201737 Last Action: HELD on 09/23/201058 by LILY LOPEZ MD Lactobacillus Rhamnosus Gg (Culturelle) 1 Each Cap.sprink, 1 CAP PO BID for Diarrhea for 30 Days, #60 Prescribed by: HOWIE CHAPMAN MD on 05/01/201332 Last Action: Continued on 09/23/201058 by LILY LOPEZ MD Loperamide Hcl (Loperamide) 2 Mg Tablet, 2 MG PO PRN Q4-6HRS for Diarrhea, (Reported) Entered as Reported by: SUMIT CORONA RN on 04/28/201742 Last Action: HELD on 09/23/201058 by LILY LOPEZ MD Losartan Potassium (Losartan Potassium) 100 Mg Tablet, 100 MG PO DAILY for HYPERTENSION, (Reported) Entered as Reported by: SUMIT CORONA RN on 04/28/201742 Last Action: HELD on 09/23/201058 by LILY LOPEZ MD Metformin Hcl (Metformin Hcl) 1,000 Mg Tablet, 1,000 MG PO BIDWMEALS, (Reported) Entered as Reported by: NIMCO ABREU on 09/23/20 0747 Last Action: HELD on 09/23/20 1100 by LILY LOPEZ MD Multivitamin (One-Daily Multi-Vitamin) 1 Each Tablet, 1 TAB PO DAILY for 30 Days, #30 Ref 0 (Reported) Entered as Reported by: NIMCO ABREU on 09/23/20 0747 Last Action: Converted on 09/23/20 1100 by LILY LOPEZ MD Nystatin (Nystatin) 15 Gm Powder, 15 GM TP BID for redness, (Reported) Entered as Reported by: SUMIT CORONA RN on 04/28/20 1743 Last Action: Continued on 09/23/20 105 by LILY LOPEZ MD Scheduled PRN Acetaminophen (Acetaminophen) 325 Mg Tablet, 2 TAB PO PRN Q6HRS PRN for pain or fever for 24 Days, #100 Ref 0 (Reported) Entered as Reported by: NIMCO ABREU on 09/23/20 0744 Last Action: HELD on 09/23/20 1100 by LILY LOPEZ MD Tramadol HCl (Tramadol HCl ER) 100 Mg Cpbp.25.75, 50 MG PO PRN Q6HRS PRN for PAIN for 6 Days, #15 Prescribed by: HOWIE CHAPMAN MD on 05/01/201332 Last Action: HELD on 09/23/20 105 by LILY LOPEZ MD Discontinued Medications Amoxicillin/Potassium Clav (Amox Tr-K Clv 875-125 Mg Tab) 1 Each Tablet, 1 TAB PO BID for UTI for 3 Days, #6 Prescribed by: HOWIE CHAPMAN MD on 05/01/201332 Last Action: HELD on 09/23/201058 by LILY LOPEZ MD Carvedilol (Carvedilol) 25 Mg Tablet, 25 MG PO BIDWMEALS for CARDIAC, (Reported) Entered as Reported by: SUMIT CORONA RN on 04/28/20 1738 Last Action: Converted on 09/23/201058 by LILY LOPEZ MD Enoxaparin Sodium (Enoxaparin Sodium) 40 Mg/0.4 Ml Disp.syrin, 40 MG SQ DAILY for COVID 19 for 7 Days, #7 Prescribed by: HOWIE CHAPMAN MD on 05/01/201332 Last Action: HELD on 09/23/201058 by LILY LOPEZ MD Prednisone (Prednisone) 20 Mg Tablet, 1 TAB PO DAILY for COVID 19 for 5 Days, #5 Prescribed by: HOWIE CHAPMAN MD on 05/01/20 1340 Last Action: Continued on 09/23/20 1059 by LILY LOPEZ MD Justicifation of Admission Dx: Justifications for Admission: Justification of Admission Dx: N/A ROMARIO BAR MD Sep 29, 2020 09:17
--- NOTE | 2020-09-29 10:48 | NUR ---
OLIVIA following, chart review. Pt from [facility]. Discharge orders for return to [facility]. OLIVIA faxed discharge paperwork. Left voicemail for Maryuri at [facility] requesting stretcher transportation. OLIVIA will continue to follow. Addendum: 09/29/20 at 1315 by ERVIN BAKER [facility] arranged stretcher transportation with [facility] for 1430. RN notified.
[2020-09-29 11:00] VITALS: BP 161/86
--- NOTE | 2020-09-29 11:37 | PDOC ---
DATE OF SERVICE DATE: 09/29/20 TIME: 11:37 SUBJECTIVE ROS stable OBJECTIVE Vital Signs Vital Signs Date Time Temp Pulse Resp B/P (MAP) Pulse Ox O2 Delivery O2 Flow Rate FiO2 09/29/20 08:56 68 162/73 09/29/20 07:00 99.0 17 98 Room Air 99.0 I & 0 Intake and Output 09/29/20 07:00 Intake Total 1120 ml Balance 1120 ml Intake Oral 220 ml Other 900 ml # Voids 2 # Bowel Movements 1 PHYSICAL EXAM Physical Exam General Appearance: NAD HEEN OM moist Neck supple Lungs : bilateral CTA, decreased at bases, non labored Heart: S1S2 Abdomen: soft, obese Extremities:No edema DIAGNOSIS/ASSESSMENT Assessment & Plan JEVON with Cr 3.7 improving renal function , etiology dehydration, UTI Supportive care , I/O, avoid nephrotoxins CKD stage 3B - baseline Cr 1.7-1.7 8 3B WITH CR OF 1.8 Hypokalemi- mild, replace and monitor UTI - PER PRIMARY Patchy opacities medial right lung base, possibly atelectasis. Pneumonia - likely COVID 19 related, RECOVERED H/o CVA with contractures DM2 anemia - likely of chronic disease CAD - stable, will cont meds H/o Gout - no pain complaints currently Sacral decubitus ulcer - stage I/II - local wound care COMMENT/RELEVANT DATA Meds Current Medications Medications (Trade) Dose Ordered Sig/Rossana Start Time Stop Time Status Last Admin Dose Admin Acetaminophen (Tylenol Supp) 650 mg PRN Q4HRS PRN 09/23/20 15:45 Acetaminophen (Tylenol) 650 mg PRN Q4HRS PRN 09/23/20 15:45 09/26/20 20:21 650 MG Al Hydroxide/Mg Hydroxide (Mylanta Plus Xs) 30 ml PRN DAILY PRN 09/23/20 15:45 Albuterol Sulfate (Ventolin Neb Soln) 2.5 mg PRN Q4HRS PRN 09/23/20 15:45 Ascorbic Acid (Vitamin C) 500 mg DAILY 09/24/20 12:00 09/29/20 08:55 500 MG Atorvastatin Calcium (Lipitor) 10 mg HS 09/23/20 21:00 09/28/20 19:59 10 MG Carvedilol (Coreg) 6.25 mg BIDWMEALS 09/26/20 17:00 09/29/20 08:56 6.25 MG Ceftriaxone Sodium (Rocephin) 1 gm Q24H 09/24/20 09:00 09/29/20 08:40 DC 09/28/20 10:07 1 GM Clopidogrel Bisulfate (Plavix) 75 mg DAILY 09/23/20 12:00 09/29/20 08:56 75 MG Docusate Sodium (Colace) 100 mg PRN BID PRN 09/23/20 15:45 Enoxaparin Sodium (Lovenox 40mg Syringe) 40 mg Q24H 09/23/20 21:00 09/28/20 19:58 40 MG Guaifenesin (Robitussin) 200 mg PRN Q4HRS PRN 09/23/20 15:45 Hydralazine HCl (Apresoline) 50 mg BID 09/23/20 12:00 09/29/20 08:55 50 MG Insulin Human Lispro (HumaLOG) 10 units TIDWMEALS 09/23/20 12:00 09/29/20 08:00 10 UNITS Lactobacillus Rhamnosus (Culturelle) 1 cap BID 09/23/20 12:00 09/29/20 08:56 1 CAP Multivitamins (Thera M Plus) 1 tab DAILY 09/23/20 12:00 09/29/20 08:56 1 TAB Nystatin (Nystop) 1 eros BID 09/23/20 12:00 09/29/20 08:57 1 EROS Ondansetron HCl (Zofran) 4 mg PRN Q4HRS PRN 09/23/20 15:45 Prednisone (Prednisone) 20 mg DAILY 09/23/20 12:00 09/29/20 08:56 20 MG Sodium Monofluorophosphate (Fleet Adult) 133 ml PRN DAILY PRN 09/23/20 15:45 Sodium Chloride (Normal Saline Flush) 3 ml QSHIFT PRN 09/23/20 15:45 Sodium Chloride (Saline Mist Nasal) 1 eros PRN Q1HR PRN 09/27/20 20:00 09/27/20 21:37 1 EROS Lab Laboratory Tests Test 09/28/20 12:00 09/28/20 17:08 09/28/20 19:46 09/29/20 06:10 Glucose (Fingerstick) 106 mg/dL (70-99) 238 mg/dL (70-99) 212 mg/dL (70-99) White Blood Count 12.2 x10^3/uL (4.0-11.0) Red Blood Count 3.24 x10^6/uL (3.50-5.40) Hemoglobin 9.2 g/dL (12.0-15.5) Hematocrit 27.5 % (36.0-47.0) Mean Corpuscular Volume 85 fL (79-100) Mean Corpuscular Hemoglobin 28 pg (25-35) Mean Corpuscular Hemoglobin Concent 33 g/dL (31-37) Red Cell Distribution Width 13.6 % (11.5-14.5) Platelet Count 244 x10^3/uL (140-400) Neutrophils (%) (Auto) 75 % (31-73) Lymphocytes (%) (Auto) 17 % (24-48) Monocytes (%) (Auto) 7 % (0-9) Eosinophils (%) (Auto) 2 % (0-3) Basophils (%) (Auto) 0 % (0-3) Neutrophils # (Auto) 9.1 x10^3/uL (1.8-7.7) Lymphocytes # (Auto) 2.1 x10^3/uL (1.0-4.8) Monocytes # (Auto) 0.8 x10^3/uL (0.0-1.1) Eosinophils # (Auto) 0.2 x10^3/uL (0.0-0.7) Basophils # (Auto) 0.0 x10^3/uL (0.0-0.2) Sodium Level 145 mmol/L (136-145) Potassium Level 3.4 mmol/L (3.5-5.1) Chloride Level 111 mmol/L (98-107) Carbon Dioxide Level 23 mmol/L (21-32) Anion Gap 11 (6-14) Blood Urea Nitrogen 34 mg/dL (7-20) Creatinine 1.7 mg/dL (0.6-1.0) Estimated GFR (Cockcroft-Gault) 35.9 Glucose Level 128 mg/dL (70-99) Calcium Level 9.4 mg/dL (8.5-10.1) Phosphorus Level 2.2 mg/dL (2.6-4.7) Albumin 3.1 g/dL (3.4-5.0) Test 09/29/20 07:21 Glucose (Fingerstick) 130 mg/dL (70-99) Results All relevant outside records, renal labs, imaging studies, telemetry/EKG's were reviewed. Justicifation of Admission Dx: Justifications for Admission: Justification of Admission Dx: N/A GOSIA DEWEY MD Sep 29, 2020 11:37
--- NOTE | 2020-09-29 15:12 | NUR ---
REPORT CALLED TO Yane AT [facility], QUESTIONS AND CONCERNS ANSWERED, DISCHARGE PAPERWORK SENT WITH PATIENT AT TIME OF DISCHARGE.
== END 2020-09-29 14:30 | DRG 871 ==
LOC: ER 00:56 → ED HOLD 02:18 → 5 NORTH 13:51
PROVIDERS: ADMIT Family Medicine; ATTEND Family Medicine
DX: A41.9 Sepsis, unspecified organism (principal); G93.41 Metabolic encephalopathy; N17.0 Acute kidney failure with tubular necrosis; J18.9 Pneumonia, unspecified organism; E44.0 Moderate protein-calorie malnutrition; N39.0 Urinary tract infection, site not specified; G81.94 Hemiplegia, unspecified affecting left nondominant side; J44.0 Chronic obstructive pulmonary disease with (acute) lower respiratory infection; L89.151 Pressure ulcer of sacral region, stage 1; E11.22 Type 2 diabetes mellitus with diabetic chronic kidney disease; N18.32 Chronic kidney disease, stage 3b; E86.0 Dehydration; D63.8 Anemia in other chronic diseases classified elsewhere; I25.10 Atherosclerotic heart disease of native coronary artery without angina pectoris; E78.00 Pure hypercholesterolemia, unspecified; E78.5 Hyperlipidemia, unspecified; E87.5 Hyperkalemia; F03.90 Unspecified dementia, unspecified severity, without behavioral disturbance, psychotic disturbance, mood disturbance, and anxiety; I12.9 Hypertensive chronic kidney disease with stage 1 through stage 4 chronic kidney disease, or unspecified chronic kidney disease; Z87.891 Personal history of nicotine dependence; Z90.710 Acquired absence of both cervix and uterus; Z96.649 Presence of unspecified artificial hip joint; M10.9 Gout, unspecified; M19.90 Unspecified osteoarthritis, unspecified site; Z79.899 Other long term (current) drug therapy; Z68.38 Body mass index [BMI] 38.0-38.9, adult; E11.42 Type 2 diabetes mellitus with diabetic polyneuropathy; Z79.4 Long term (current) use of insulin; Z86.16 Personal history of COVID-19; I69.398 Other sequelae of cerebral infarction; R00.1 Bradycardia, unspecified; B96.4 Proteus (mirabilis) (morganii) as the cause of diseases classified elsewhere
CPT/HCPCS: 36415; 71045; 80048; 80053; 80069; 81001; 82962; 83605; 83735; 83880; 84100; 84484; 85025; 87077; 87086; 87186; 93005; 94760; 96374; 96375; J0696; J1650; J1815; J2405; J7030; J7040; J7512; 97535-GO; 99285-25; G0378